=== PATIENT | female | born 1955 | race Caucasian/White ===

== ENCOUNTER 2018-06-19 13:10 | Inpatient (IN) | payer OTHER ==
--- NOTE | 2018-06-19 12:45 | CT ---
EXAMINATION TYPE: CT abdomen pelvis w con DATE OF EXAM: 06/19/2018 COMPARISON: None HISTORY: Right lower quadrant pain on and off x [address] DLP: 1286.2 mGycm CONTRAST: CT scan of the abdomen and pelvis is performed with Oral Contrast and with IV Contrast, patient injec joseph with 100 mL of Isovue M300. FINDINGS: LUNG BASES-: No visible nodule. No infiltrate. LIVER/GB: No calcified gallstones. No space occupying hepatic lesion. Biliary tree is of normal ca liber. PANCREAS: No inflammation. No distinct mass. SPLEEN: No splenic enlargement. No lesion seen. ADRENALS: No nodule. No thickening. KIDNEYS/BLADDER: No hydronephrosis. No nephrolithiasis. No distinct renal mass. Urinary bladder g rossly unremarkable. BOWEL: Extensive wall thickening and surrounding inflammatory change involving the cecum. There is ad jacent inflammatory change of the iliopsoas musculature with the suspected developing intramuscular a bscess of 2.8 cm. Adherent tubular structure may reflect inflamed appendix. No evidence for free air. The findings may reflect acute diverticulitis or diverticulitis however neoplasm is not excluded. St rict clinical correlation advised. GENITAL ORGANS: No gross abnormality. LYMPH NODES: No greater than 1cm abdominal or pelvic lymph nodes are appreciated. AORTA: No significant abnormality. OSSEOUS STRUCTURES: No significant abnormality is seen. OTHER: No significant additional abnormality is seen. IVC filter is in place. IMPRESSION: 1. Extensive wall thickening and surrounding inflammatory change of the cecum and appendix may reflec t underlying neoplasm however acute appendicitis or acute diverticulitis in this region is difficult to exclude. There is inflammatory change of the adjacent iliopsoas with the intramuscular phlegmon or developing abscess. 2. Distal right ureteral calculus measuring 5 mm resulting in qsal-ot-heymormu right-sided hydrourete ronephrosis.
[2018-06-19] MEDS ORDERED: KETOROLAC 30 MG/ML 1 ML VIAL IVP STA (13:45)
[2018-06-19] MEDS ORDERED: SODIUM CHLORIDE 0.9% 2,000 ML IV STA (13:45)
[2018-06-19] MEDS ORDERED: MORPHINE SULFATE 4 MG/ML SYRINGE IV STA (13:45)
[2018-06-19] MEDS ORDERED: SODIUM CHLORIDE 0.9% 1,000 ML IV STA (13:45)
[2018-06-19] MEDS ORDERED: ACETAMINOPHEN TAB 500 MG TAB PO STA (13:56)
[2018-06-19] MEDS ORDERED: PIPERACILLIN-TAZOBACTAM 3.375 GM in SODIUM CHLORIDE 0.9% 100 ML IVPB STA (14:06)
--- NOTE | 2018-06-19 14:15 | ED ---
General Adult HPI <Dinesh Garsia - Last Filed: 06/19/18 15:07> - General Source: patient, RN notes reviewed, old records reviewed Mode of arrival: wheelchair Limitations: no limitations <Nae Okeefe - Last Filed: 06/19/18 15:19> - General Chief complaint: Recheck/Abnormal Lab/Rx Stated complaint: Abn CT Time Seen by Provider: 06/19/18 13:45 - History of Present Illness Initial comments: Patient is a 62-year-old female who presents emergency department today for evaluation due to significant right lower quadrant pain and abnormal CAT scan. Patient reports that she's been having intermittent right lower quadrant pain for the past month. Patient states that over the past 24 hours and having a high fever of 102 Patient felt that she be seen by her PCP. She had an outpatient CAT scan by Dr. King. Abnormal CAT scan findings concerning thickened cecum and appendix cannot exclude mass. Also a 5 mm distal right ureter stone causing hydronephrosis. Patient reports that she has a history of low hemoglobin. She scheduled to have a colonoscopy by Dr. Thompson in one week. Patient is not seen Dr. Thompson. Surgical history includes gastric bypass over 10 years ago. (Nae Okeefe) - Related Data Home Medications Medication Instructions Recorded Confirmed Ascorbic Acid [Vitamin C] 500 mg PO DAILY 06/19/18 06/19/18 Ferrous Sulfate Oral Elixir 312 mg PO DAILY 06/19/18 06/19/18 [Feosol Liquid] Levothyroxine Sodium [Synthroid] 175 mcg PO DAILY 06/19/18 06/19/18 Allergies Allergy/AdvReac Type Severity Reaction Status Date / Time No Known Allergies Allergy Verified 06/19/18 14:34 Review of Systems ROS Other: All systems not noted in ROS Statement are negative. <Dinesh Garsia - Last Filed: 06/19/18 15:07> ROS Other: All systems not noted in ROS Statement are negative. <Nae Okeefe - Last Filed: 06/19/18 15:19> ROS Statement: Those systems with pertinent positive or pertinent negative responses have been documented in the HPI. Past Medical History Additional Past Medical History / Comment(s): non-hodgkins lymphoma History of Any Multi-Drug Resistant Organisms: None Reported Past Surgical History: Bariatric Surgery Additional Past Surgical History / Comment(s): gastric bypass 2004, green field filter, port placement, bilateral breast biopsies Past Psychological History: No Psychological Hx Reported Smoking Status: Current every day smoker Past Alcohol Use History: None Reported Past Drug Use History: None Reported <Nae Okeefe - Last Filed: 06/19/18 15:19> General Exam Limitations: no limitations General appearance: alert, in no apparent distress Head exam: Present: atraumatic, normocephalic, normal inspection Eye exam: Present: normal appearance, PERRL, EOMI. Absent: scleral icterus, conjunctival injection, periorbital swelling ENT exam: Present: normal exam, mucous membranes moist Neck exam: Present: normal inspection. Absent: tenderness, meningismus, lymphadenopathy Respiratory exam: Present: normal lung sounds bilaterally. Absent: respiratory distress, wheezes, rales, rhonchi, stridor Cardiovascular Exam: Present: regular rate, normal rhythm, normal heart sounds. Absent: systolic murmur, diastolic murmur, rubs, gallop, clicks GI/Abdominal exam: Present: tenderness (Lower quadrant tenderness and guarding.), guarding, normal bowel sounds. Absent: distended, rebound, rigid <Nae Okeefe - Last Filed: 06/19/18 15:19> - General Exam Comments Initial Comments: 62-year-old female. Alert and oriented 3. No significant distress. (Nae Okeefe) Course <Dinesh Garsia - Last Filed: 06/19/18 15:07> <Nae Okeefe - Last Filed: 06/19/18 15:19> Vital Signs 06/19/18 13:16 Temperature 101.0 F H Pulse Rate 98 Respiratory 20 Rate Blood Pressure 94/53 O2 Sat by Pulse 99 Oximetry - Reevaluation(s) Reevaluation #1: 06/19/18 15:07 Patient reevaluated by myself, Dr. Garsia. Patient is moderate tenderness right lower abdomen. Patient states she has had intermittent abdominal discomfort over the past several weeks. Fever just started a couple of days ago. Outpatient hemoglobin was 7.3. Case was discussed with Dr. Thompson who states she is not around and recommends calling Dr. Calvert. Case was discussed with Dr. Calvert, who will admit and does agree with IV antibiotics. Case was also discussed with Dr. Dolan, who will consult. Patient does meet sepsis criteria diagnosed at 1500. Blood culture and lactic acid and IV antibiotic's involvement ordered. (Dinesh Garsia) 06/19/18 14:15 Patient is sepsis criteria with fever 101 blood pressure of 90/53. Initiate on 2 L bolus and Zosyn. (Nae Okeefe) Medical Decision Making - Lab Data Result diagrams: 06/19/18 14:15 06/19/18 14:15 <Dinesh Garsia - Last Filed: 06/19/18 15:07> - Lab Data Result diagrams: 06/19/18 14:15 06/19/18 14:15 - Radiology Data Radiology results: report reviewed <Nae Okeefe - Last Filed: 06/19/18 15:19> - Medical Decision Making 62-year-old female presents emergency department today with progressive right lower quadrant abdominal pain. Much more severe with fevers over the past 48 hours. Patient was seen by her PCP and had an outpatient CAT scan completed. She is also being treated for significant anemia. Patient's lab work shows white blood cell count 9.6. Hemoglobin of 6.0. Sodium 133. Potassium 4.5. Bicarb 20. Alk phos 164. Albumin 3.4. Amylase is 135. Lipase is 599. Urinalysis is negative for blood or infection. Patient computed tomography scan shows evidence of inflammatory changes over the cecum involving the appendix. Difficult to exclude underlying neoplasm or diverticulitis. There is also some phlegmonous changes in the iliopsoas muscle. Patient also has a distal 5 mm right ureteral stone. Discussed the pain is likely related to both of these processes at this time. Patient was initiated on 2 L bolus. She does meet sepsis criteria. Patient was initiated on Zosyn. Patient was also started on a 2 unit blood transfusion due to low hemoglobin of 6.0. Most likely related to possibly of underlying neoplasm in the right lower quadrant. Patient's case discussed with Dr. Garsia was discussed case with Dr. Lacy. Patient will be admitted at this time. (Nae Okeefe) - Lab Data Lab Results 06/19/18 06/19/18 06/19/18 Range/Units 14:15 14:15 14:15 WBC 9.6 (3.8-10.6) k/uL RBC 3.59 L (3.80-5.40) m/uL Hgb 6.0 L* (11.4-16.0) gm/dL Hct 22.3 L (34.0-46.0) % MCV 62.0 L (80.0-100.0) fL MCH 16.7 L (25.0-35.0) pg MCHC 27.0 L (31.0-37.0) g/dL RDW 18.6 H (11.5-15.5) % Plt Count 507 H (150-450) k/uL Sodium 133 L (137-145) mmol/L Potassium 4.5 (3.5-5.1) mmol/L Chloride 100 (98-107) mmol/L Carbon Dioxide 20 L (22-30) mmol/L Anion Gap 13 mmol/L BUN 17 (7-17) mg/dL Creatinine 0.71 (0.52-1.04) mg/dL Est GFR (CKD-EPI)AfAm >90 (>60 ml/min/1.73 sqM) Est GFR (CKD-EPI)NonAf >90 (>60 ml/min/1.73 sqM) Glucose 85 (74-99) mg/dL Plasma Lactic Acid Jimmy 1.1 (0.7-2.0) mmol/L Calcium 9.2 (8.4-10.2) mg/dL Total Bilirubin 0.4 (0.2-1.3) mg/dL AST 16 (14-36) U/L ALT 19 (9-52) U/L Alkaline Phosphatase 164 H (38-126) U/L Total Protein 6.4 (6.3-8.2) g/dL Albumin 3.4 L (3.5-5.0) g/dL Amylase 135 H (30-110) U/L Lipase 599 H (23-300) U/L Urine Color Urine Appearance (Clear) Urine pH (5.0-8.0) Ur Specific [place] (1.001-1.035) Urine Protein (Negative) Urine Glucose (UA) (Negative) Urine Ketones (Negative) Urine Blood (Negative) Urine Nitrite (Negative) Urine Bilirubin (Negative) Urine Urobilinogen (<2.0) mg/dL Ur Leukocyte Esterase (Negative) 06/19/18 Range/Units 14:15 WBC (3.8-10.6) k/uL RBC (3.80-5.40) m/uL Hgb (11.4-16.0) gm/dL Hct (34.0-46.0) % MCV (80.0-100.0) fL MCH (25.0-35.0) pg MCHC (31.0-37.0) g/dL RDW (11.5-15.5) % Plt Count (150-450) k/uL Sodium (137-145) mmol/L Potassium (3.5-5.1) mmol/L Chloride (98-107) mmol/L Carbon Dioxide (22-30) mmol/L Anion Gap mmol/L BUN (7-17) mg/dL Creatinine (0.52-1.04) mg/dL Est GFR (CKD-EPI)AfAm (>60 ml/min/1.73 sqM) Est GFR (CKD-EPI)NonAf (>60 ml/min/1.73 sqM) Glucose (74-99) mg/dL Plasma Lactic Acid Jimmy (0.7-2.0) mmol/L Calcium (8.4-10.2) mg/dL Total Bilirubin (0.2-1.3) mg/dL AST (14-36) U/L ALT (9-52) U/L Alkaline Phosphatase (38-126) U/L Total Protein (6.3-8.2) g/dL Albumin (3.5-5.0) g/dL Amylase (30-110) U/L Lipase (23-300) U/L Urine Color Light Yellow Urine Appearance Clear (Clear) Urine pH 5.5 (5.0-8.0) Ur Specific [place] 1.037 H (1.001-1.035) Urine Protein Negative (Negative) Urine Glucose (UA) Negative (Negative) Urine Ketones Negative (Negative) Urine Blood Negative (Negative) Urine Nitrite Negative (Negative) Urine Bilirubin Negative (Negative) Urine Urobilinogen <2.0 (<2.0) mg/dL Ur Leukocyte Esterase Negative (Negative) - Radiology Data CT shows extensive wall thickening and surrounding inflammatory change of the cecum and appendix which may reflect underlying neoplasm however acute appendicitis or diverticulitis in this region is difficult to exclude. Inflammatory changes adjacent to the iliopsoas with intramuscular phlegmon or developing abscess. There is also a distal right ureteral calculus measuring 5 mm resulting in mild to moderate right-sided hydroureteronephrosis. (Nae Phillips) Critical Care Time Critical Care Time: Yes Total Critical Care Time: 31 <Dinesh Garsia - Last Filed: 06/19/18 15:07> Disposition <Dinesh Garsia - Last Filed: 06/19/18 15:07> Is patient prescribed a controlled substance at d/c from ED?: No Time of Disposition: 15:18 <Nae Okeefe - Last Filed: 06/19/18 15:19> Clinical Impression: Sepsis, Anemia, Appendicitis with abscess, Right ureteral stone Disposition: ADMITTED IP TO THIS HOSP Condition: Stable Referrals: Patrick King DO [Primary Care Provider] - 1-2 days
[2018-06-19 14:53] LABS: Appearance,Urine Clear (Clear); Bilirubin,Urine Negative (Negative); Blood,Urine Negative (Negative); Color,Urine Light Yellow; Glucose,Urine (UA) Negative (Negative); Ketones,Urine Negative (Negative); Leukocyte Esterase,Urine Negative (Negative); Nitrite,Urine Negative (Negative); PH, Urine 5.5 (5.0-8.0); Protein,Urine Negative (Negative); Specific Gravity,Urine 1.037 (1.001-1.035); Urobilinogen,Urine <2.0 mg/dL (<2.0)
[2018-06-19 14:54] LABS: Anisocytosis Slight; Basophils # (A) 0.1 k/uL (0-0.2); Basophils % (A) 1 %; Eosinophils # (A) 0.1 k/uL (0-0.7); Eosinophils % (A) 1 %; HCT 22.3 % (34.0-46.0); Hypochromasia Marked; Lymphocytes # (A) 0.9 k/uL (1.0-4.8); Lymphocytes % (A) 10 %; MCH 16.7 pg (25.0-35.0); Mean Platelet Volume 6.7; Microcytosis Marked; Monocytes # (A) 0.6 k/uL (0-1.0); Monocytes % (A) 7 %; Neutrophils # (A) 7.8 k/uL (1.3-7.7); Neutrophils % (A) 81 %; Platelet Count 507 k/uL (150-450); RBC 3.59 m/uL (3.80-5.40); RDW 18.6 % (11.5-15.5); WBC 9.6 k/uL (3.8-10.6)
[2018-06-19 14:56] LABS: ALT 19 U/L (9-52); AST 16 U/L (14-36); Albumin 3.4 g/dL (3.5-5.0); Alkaline Phosphatase 164 U/L (38-126); Amylase 135 U/L (30-110); Anion Gap 13 mmol/L; Blood Urea Nitrogen 17 mg/dL (7-17); Calcium 9.2 mg/dL (8.4-10.2); Carbon Dioxide 20 mmol/L (22-30); Chloride 100 mmol/L (98-107); Glucose 85 mg/dL (74-99); Lipase 599 U/L (23-300); Potassium 4.5 mmol/L (3.5-5.1); Sodium 133 mmol/L (137-145); Total Bilirubin 0.4 mg/dL (0.2-1.3); Total Protein 6.4 g/dL (6.3-8.2)
[2018-06-19] MEDS ORDERED: NALOXONE 0.4 MG/ML 1 ML VIAL IV PRN (15:19)
[2018-06-19] MEDS ORDERED: HYDROmorphone 0.5 MG/0.5 ML SYRINGE IVP PRN (15:19)
[2018-06-19 15:30] LABS: Polychromasia Present
[2018-06-19 15:31] LABS: Large Platelets Present; Ovalocytes Present; Poikilocytosis (M) Present
[2018-06-19] MEDS: SODIUM CHLORIDE 0.9% 1,000 ML IV SCH (15:45)
[2018-06-19] MEDS: metroNIDAZOLE-NS PMX 500 MG in SALINE 1 100ML.BAG IVPB SCH (23:34)
[2018-06-19] MEDS: PIPERACILLIN-TAZOBACTAM 3.375 GM in SODIUM CHLORIDE 0.9% 100 ML IVPB SCH (23:34)
[2018-06-19] MEDS: NICOTINE 7MG/24HR PATCH TRANSDERM SCH ×2 (23:34→23:43)
[2018-06-20] MEDS: MORPHINE SULFATE 4 MG/ML SYRINGE IV PRN ×2 (03:24→10:41)
[2018-06-20] MEDS: SODIUM CHLORIDE 0.9% 1,000 ML IV SCH ×3 (03:27→22:30)
[2018-06-20] MEDS: metroNIDAZOLE-NS PMX 500 MG in SALINE 1 100ML.BAG IVPB SCH ×4 (04:51→23:24)
[2018-06-20] MEDS: LEVOTHYROXINE 88 MCG TAB PO SCH (05:54)
--- NOTE | 2018-06-20 07:57 | CONS ---
CONSULTATION DATE OF CONSULTATION: 06/19/2018 REASON FOR CONSULTATION: Medical management requested by Dr. Calvert. CONSULTATION: This is a pleasant 62-year-old patient of Dr. King who had a gastric bypass in 2004 and had non-Hodgkin's lymphoma treated with chemotherapy 11 years ago. Patient for 3 weeks has been having right lower quadrant abdominal pain off and on with some chills, denies any cough. No urinary symptoms. Has been feeling tired, run down, achy, nausea, vomiting. Patient presented in the ER. CT scan of the abdomen and pelvis was done. Patient is found to have extensive wall thickening and surrounding inflammatory change involving the cecum. Does suggest inflammatory change of the iliopsoas musculature with suspected developing intramuscular abscess of 2.8 cm. Tubal structure may reflect inflamed appendix. There was no free air noted. Diverticulitis/neoplasm could not be ruled out. Also, distal right ureter calculus 5 mm resulting in mild-to- moderate right-sided hydroureteronephrosis. Patient is started on IV fluids, admitted for the same. REVIEW OF SYSTEMS: CONSTITUTIONAL: Tired. HEENT: None. RESPIRATORY: None. GASTROINTESTINAL: As above. GENITOURINARY: None. MUSCULOSKELETAL: None. DERMATOLOGICAL: None. HEMATOLOGICAL: None. LYMPHATIC: None. PSYCHIATRY: None. NEUROLOGICAL: None. PAST MEDICAL HISTORY: Non-Hodgkin's lymphoma. PAST SURGICAL HISTORY: Gastric bypass in 2004, Darcy filter, port placement, bilateral breast biopsy, kidney stones. SOCIAL HISTORY: The patient smokes less than half pack a day. Lives with her daughter. 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 FAMILY HISTORY: Reviewed, noncontributory to presentation. HOME MEDICATIONS: Synthroid 135 mcg a day, iron 312 mg p.o. daily, Vitamin C 500 mg p.o. daily. ALLERGIES: None. PHYSICAL EXAMINATION: Temperature 98, pulse 75, respiration 20, blood pressure 100/65, pulse ox 92% on room air. GENERAL APPEARANCE: Average build, lying in bed, awake. EYES: Pupils equal, conjunctivae are normal. HEENT: External appearance of nose and ears normal, oral cavity normal. NECK: JVD not raised, mass not palpable. RESPIRATORY: Effort normal. LUNGS: Clear. CARDIOVASCULAR: First and second sounds are normal. No edema. Right lower quadrant tenderness. No obvious guarding, rigidity. Liver and spleen not palpable. LYMPHATIC: No lymph node palpable. PSYCHIATRY: Alert and oriented x3. Mood and affect normal. NEUROLOGICAL: Pupils equal. Cranial nerves grossly intact. Power and sensation grossly intact. INVESTIGATIONS: White count 9.6, hemoglobin 6, MCV 62, platelets 507, potassium 4.5. Amylase 135, lipase 599. CT scan of the abdomen and pelvis as above. ASSESSMENT: 1. This is a patient who presents with 3 weeks of some low-grade fever and chills, right lower quadrant pain. Patient did not get any worse. CT scan is suggestive of inflammatory mass, diverticulitis could not be ruled out. There was no free air or air bubbles noted. Given history of non-Hodgkin's lymphoma, that needs to be kept in differential, given there are no ranging symptoms of fever, chills, or white count. 2. Right ureter stone with right-sided hydronephrosis. 3. Hypothyroidism. 4. Microcytic anemia, need to rule out chronic underlying malignancy. PLAN: Patient is already on IV fluids. We will add Lovenox for DVT prophylaxis. Will add IV Zosyn and Flagyl. Will also get a Hematology consultation to keep in mind that non- Hodgkin's lymphoma needs to be ruled out. Thank you, Dr. Calvert, will follow with you. Patient is otherwise medically stable to proceed for an exploratory laparotomy that is done tomorrow. Care was discussed with the patient. MMODL / IJN: [id number] /
[2018-06-20] MEDS: PIPERACILLIN-TAZOBACTAM 3.375 GM in SODIUM CHLORIDE 0.9% 100 ML IVPB SCH ×2 (08:36→18:34)
[2018-06-20] MEDS: PANTOPRAZOLE 40 MG/10 ML VIAL IV SCH (08:36)
[2018-06-20] MEDS: NICOTINE 7MG/24HR PATCH TRANSDERM SCH (08:37)
[2018-06-20 08:39] LABS: Anisocytosis Moderate; Basophils # (A) 0.1 k/uL (0-0.2); Basophils % (A) 1 %; Eosinophils # (A) 0.1 k/uL (0-0.7); Eosinophils % (A) 1 %; HGB 7.2 gm/dL (11.4-16.0); Hypochromasia Marked; Lymphocytes # (A) 0.9 k/uL (1.0-4.8); Lymphocytes % (A) 11 %; MCH 18.7 pg (25.0-35.0); MCHC 27.8 g/dL (31.0-37.0); Mean Platelet Volume 6.8; Microcytosis Marked; Monocytes # (A) 0.6 k/uL (0-1.0); Monocytes % (A) 8 %; Neutrophils # (A) 5.8 k/uL (1.3-7.7); Neutrophils % (A) 77 %; Platelet Count 423 k/uL (150-450); Poikilocytosis Moderate; RBC 3.85 m/uL (3.80-5.40); RDW 22.6 % (11.5-15.5); WBC 7.6 k/uL (3.8-10.6)
[2018-06-20 08:41] LABS: MCV 67.5 fL (80.0-100.0)
--- NOTE | 2018-06-20 08:43 | P.GSHP ---
<Kary Yip A - Last Filed: 06/20/18 08:39> History of Present Illness H&P Date: 06/20/18 Chief Complaint: abdominal pain CHIEF COMPLAINT: Abdominal pain HISTORY OF PRESENT ILLNESS: 62-year-old female who presented to emergency room with a chief complaint of abdominal pain. Patient states she has been having intermittent right lower quadrant abdominal pain for the past 3-4 weeks. She states that she thought she had the flu initially as she was having body aches and a fever. She states about a week ago when these symptoms came on again, she laid in bed for a day or two and it resolved. She reports on Monday her symptoms returned and she had a fever of 102F. She denies diarrhea or constipation. Reports weight loss of 5 pounds over the last month. Denies nausea or vomiting. Denies hematemesis, hematochezia, or melena. Hemoglobin 6.0 on admission. Received 2 units RBC transfusion. Repeat hemoglobin pending. PAST MEDICAL HISTORY: See list. PAST SURGICAL HISTORY: See list. SOCIAL HISTORY: No illicit drug use. REVIEW OF SYSTEMS: CONSTITUTIONAL: Denies fever or chills. HEENT: Denies blurred vision, vision changes, or eye pain. Denies hemoptysis CARDIOVASCULAR: Denies chest pain or pressure. RESPIRATORY: No shortness of breath. GASTROINTESTINAL: Refer to HPI for pertinent findings HEMATOLOGIC: Denies bleeding disorders. GENITOURINARY: Denies any blood in urine. SKIN: Denies pruitis. Denies rash. PHYSICAL EXAM: VITAL SIGNS: Reviewed. GENERAL: Well-developed in no acute distress. HEENT: No sclera icterus. Extraocular movements grossly intact. Moist buccal mucosa. Head is atraumatic, normocephalic. ABDOMEN: Soft. Nondistended. Positive bowel sounds. Tenderness upon palpation of right lower quadrant. NEUROLOGIC: Alert and oriented. Cranial nerves II through XII grossly intact. IMAGING: CT abdomen and pelvis: Extensive wall thickening and surrounding inflammatory changes of the cecum and appendix may reflect underlying neoplasm however acute diverticulitis or acute appendicitis in this region is difficult to exclude. There is inflammatory changes of the adjacent iliopsoas with intramuscular phlegnmon or developing abscess. ASSESSMENT: 1. Abdominal pain 1 month, CT scan reveals extensive wall thickening and surrounding telemetry changes of the cecum and appendix. Possible acute diverticulitis. Possible acute appendicitis. Cannot rule out underlying neoplasm. PLAN: 1. NPO 2. Await repeat hemoglobin. Transfuse for hemoglobin less than 7. 3. Patient scheduled for right colectomy today with Dr. Calvert Nurse practitioner note has been reviewed by physician. Signing provider agrees with the documented findings, assessment, and plan of care. Past Medical History Additional Past Medical History / Comment(s): non-hodgkins lymphoma History of Any Multi-Drug Resistant Organisms: None Reported Past Surgical History: Bariatric Surgery Additional Past Surgical History / Comment(s): gastric bypass 2004, green field filter, port placement, bilateral breast biopsies, kidney stones Past Psychological History: No Psychological Hx Reported Smoking Status: Current every day smoker Past Alcohol Use History: None Reported Past Drug Use History: None Reported Medications and Allergies Home Medications Medication Instructions Recorded Confirmed Type Ascorbic Acid [Vitamin C] 500 mg PO DAILY 06/19/18 06/19/18 History Ferrous Sulfate Oral Elixir 312 mg PO DAILY 06/19/18 06/19/18 History [Feosol Liquid] Levothyroxine Sodium [Synthroid] 175 mcg PO DAILY 06/19/18 06/19/18 History Allergies Allergy/AdvReac Type Severity Reaction Status Date / Time No Known Allergies Allergy Verified 06/19/18 14:34 Surgical - Exam Vital Signs Temp Pulse Resp BP Pulse Ox 101.0 F H 98 20 94/53 99 06/19/18 13:16 06/19/18 13:16 06/19/18 13:16 06/19/18 13:16 06/19/18 13:16 Results - Labs 06/19/18 14:15 06/19/18 14:15 Abnormal Lab Results - Last 24 Hours (Table) 06/19/18 06/19/18 06/19/18 Range/Units 14:13 14:15 14:15 RBC 3.59 L (3.80-5.40) m/uL Hgb 6.0 L* (11.4-16.0) gm/dL Hct 22.3 L (34.0-46.0) % MCV 62.0 L (80.0-100.0) fL MCH 16.7 L (25.0-35.0) pg MCHC 27.0 L (31.0-37.0) g/dL RDW 18.6 H (11.5-15.5) % Plt Count 507 H (150-450) k/uL Neutrophils # 7.8 H (1.3-7.7) k/uL Lymphocytes # 0.9 L (1.0-4.8) k/uL Sodium 133 L (137-145) mmol/L Carbon Dioxide 20 L (22-30) mmol/L Alkaline Phosphatase 164 H (38-126) U/L Albumin 3.4 L (3.5-5.0) g/dL Amylase 135 H (30-110) U/L Lipase 599 H (23-300) U/L Ur Specific [place] (1.001-1.035) Crossmatch See Detail 06/19/18 Range/Units 14:15 RBC (3.80-5.40) m/uL Hgb (11.4-16.0) gm/dL Hct (34.0-46.0) % MCV (80.0-100.0) fL MCH (25.0-35.0) pg MCHC (31.0-37.0) g/dL RDW (11.5-15.5) % Plt Count (150-450) k/uL Neutrophils # (1.3-7.7) k/uL Lymphocytes # (1.0-4.8) k/uL Sodium (137-145) mmol/L Carbon Dioxide (22-30) mmol/L Alkaline Phosphatase (38-126) U/L Albumin (3.5-5.0) g/dL Amylase (30-110) U/L Lipase (23-300) U/L Ur Specific [place] 1.037 H (1.001-1.035) Crossmatch Diabetes panel 06/19/18 Range/Units 14:15 Sodium 133 L (137-145) mmol/L Potassium 4.5 (3.5-5.1) mmol/L Chloride 100 (98-107) mmol/L Carbon Dioxide 20 L (22-30) mmol/L BUN 17 (7-17) mg/dL Creatinine 0.71 (0.52-1.04) mg/dL Glucose 85 (74-99) mg/dL Calcium 9.2 (8.4-10.2) mg/dL AST 16 (14-36) U/L ALT 19 (9-52) U/L Alkaline Phosphatase 164 H (38-126) U/L Total Protein 6.4 (6.3-8.2) g/dL Albumin 3.4 L (3.5-5.0) g/dL Calcium panel 06/19/18 Range/Units 14:15 Calcium 9.2 (8.4-10.2) mg/dL Albumin 3.4 L (3.5-5.0) g/dL Pituitary panel 06/19/18 Range/Units 14:15 Sodium 133 L (137-145) mmol/L Potassium 4.5 (3.5-5.1) mmol/L Chloride 100 (98-107) mmol/L Carbon Dioxide 20 L (22-30) mmol/L BUN 17 (7-17) mg/dL Creatinine 0.71 (0.52-1.04) mg/dL Glucose 85 (74-99) mg/dL Calcium 9.2 (8.4-10.2) mg/dL Adrenal panel 06/19/18 Range/Units 14:15 Sodium 133 L (137-145) mmol/L Potassium 4.5 (3.5-5.1) mmol/L Chloride 100 (98-107) mmol/L Carbon Dioxide 20 L (22-30) mmol/L BUN 17 (7-17) mg/dL Creatinine 0.71 (0.52-1.04) mg/dL Glucose 85 (74-99) mg/dL Calcium 9.2 (8.4-10.2) mg/dL Total Bilirubin 0.4 (0.2-1.3) mg/dL AST 16 (14-36) U/L ALT 19 (9-52) U/L Alkaline Phosphatase 164 H (38-126) U/L Total Protein 6.4 (6.3-8.2) g/dL Albumin 3.4 L (3.5-5.0) g/dL <Rolando Calvert - Last Filed: 06/20/18 13:34> Surgical - Exam Vital Signs Temp Pulse Resp BP Pulse Ox 101.0 F H 98 20 94/53 99 06/19/18 13:16 06/19/18 13:16 06/19/18 13:16 06/19/18 13:16 06/19/18 13:16 Results - Labs 06/20/18 07:25 06/19/18 14:15 Abnormal Lab Results - Last 24 Hours (Table) 06/19/18 06/19/18 06/19/18 Range/Units 14:13 14:15 14:15 RBC 3.59 L (3.80-5.40) m/uL Hgb 6.0 L* (11.4-16.0) gm/dL Hct 22.3 L (34.0-46.0) % MCV 62.0 L (80.0-100.0) fL MCH 16.7 L (25.0-35.0) pg MCHC 27.0 L (31.0-37.0) g/dL RDW 18.6 H (11.5-15.5) % Plt Count 507 H (150-450) k/uL Neutrophils # 7.8 H (1.3-7.7) k/uL Lymphocytes # 0.9 L (1.0-4.8) k/uL Sodium 133 L (137-145) mmol/L Carbon Dioxide 20 L (22-30) mmol/L Alkaline Phosphatase 164 H (38-126) U/L Albumin 3.4 L (3.5-5.0) g/dL Amylase 135 H (30-110) U/L Lipase 599 H (23-300) U/L Ur Specific [place] (1.001-1.035) Crossmatch See Detail 06/19/18 06/20/18 Range/Units 14:15 07:25 RBC (3.80-5.40) m/uL Hgb 7.2 L (11.4-16.0) gm/dL Hct 26.0 L (34.0-46.0) % MCV 67.5 L D (80.0-100.0) fL MCH 18.7 L (25.0-35.0) pg MCHC 27.8 L (31.0-37.0) g/dL RDW 22.6 H (11.5-15.5) % Plt Count (150-450) k/uL Neutrophils # (1.3-7.7) k/uL Lymphocytes # 0.9 L (1.0-4.8) k/uL Sodium (137-145) mmol/L Carbon Dioxide (22-30) mmol/L Alkaline Phosphatase (38-126) U/L Albumin (3.5-5.0) g/dL Amylase (30-110) U/L Lipase (23-300) U/L Ur Specific [place] 1.037 H (1.001-1.035) Crossmatch Diabetes panel 06/19/18 Range/Units 14:15 Sodium 133 L (137-145) mmol/L Potassium 4.5 (3.5-5.1) mmol/L Chloride 100 (98-107) mmol/L Carbon Dioxide 20 L (22-30) mmol/L BUN 17 (7-17) mg/dL Creatinine 0.71 (0.52-1.04) mg/dL Glucose 85 (74-99) mg/dL Calcium 9.2 (8.4-10.2) mg/dL AST 16 (14-36) U/L ALT 19 (9-52) U/L Alkaline Phosphatase 164 H (38-126) U/L Total Protein 6.4 (6.3-8.2) g/dL Albumin 3.4 L (3.5-5.0) g/dL Calcium panel 06/19/18 Range/Units 14:15 Calcium 9.2 (8.4-10.2) mg/dL Albumin 3.4 L (3.5-5.0) g/dL Pituitary panel 06/19/18 Range/Units 14:15 Sodium 133 L (137-145) mmol/L Potassium 4.5 (3.5-5.1) mmol/L Chloride 100 (98-107) mmol/L Carbon Dioxide 20 L (22-30) mmol/L BUN 17 (7-17) mg/dL Creatinine 0.71 (0.52-1.04) mg/dL Glucose 85 (74-99) mg/dL Calcium 9.2 (8.4-10.2) mg/dL Adrenal panel 06/19/18 Range/Units 14:15 Sodium 133 L (137-145) mmol/L Potassium 4.5 (3.5-5.1) mmol/L Chloride 100 (98-107) mmol/L Carbon Dioxide 20 L (22-30) mmol/L BUN 17 (7-17) mg/dL Creatinine 0.71 (0.52-1.04) mg/dL Glucose 85 (74-99) mg/dL Calcium 9.2 (8.4-10.2) mg/dL Total Bilirubin 0.4 (0.2-1.3) mg/dL AST 16 (14-36) U/L ALT 19 (9-52) U/L Alkaline Phosphatase 164 H (38-126) U/L Total Protein 6.4 (6.3-8.2) g/dL Albumin 3.4 L (3.5-5.0) g/dL
[2018-06-20] MEDS ORDERED: ENOXAPARIN 40 MG/0.4 ML SYRINGE SQ SCH (09:00)
[2018-06-20] MEDS: ASCORBIC ACID 500 MG TAB PO SCH (13:25)
[2018-06-20] MEDS: FERROUS SULFATE ORAL ELIXIR 300 MG/5 ML CUP PO SCH (13:27)
--- NOTE | 2018-06-20 14:15 | P.CONS ---
History of Present Illness - Reason for Consult Consult date: 06/20/18 History of NHL, anemia, RLQ mass Requesting physician: Brian Dolan - Chief Complaint fever, chills malize - History of Present Illness Ms. Acosta is a very pleasant female pt seen in the past by Dr. Emmanuel for NHL, diagnosed and treated with chemotherapy alone 10 years ago, she has not followed in the last 5 years as she is considered cured. Pt is currently admitted for 3 weeks intermittent fever, chills, RLQ pain, wrapping around from the back to front and down the leg, associated with malaise, poor appetite, denies difficulty swallowing, recent illness, ADAL, changes in bowel ford bladder habits. She does have a known right kidney stone, CT AP is showing cecal thickening, possible abscess. Pt has microcytic, hypochromic anemia, she states this is not unusual for her, she had gastric bypass, Hgb is usually around 10, she has had IV iron in the past, her PCP manages. Review of Systems 14 point ROS is negative except as stated in HPI Past Medical History Past Medical History: Cancer Additional Past Medical History / Comment(s): non-hodgkins lymphoma History of Any Multi-Drug Resistant Organisms: None Reported Past Surgical History: Bariatric Surgery Additional Past Surgical History / Comment(s): gastric bypass 2004, green field filter, port placement, bilateral breast biopsies, kidney stones Past Psychological History: No Psychological Hx Reported Smoking Status: Current every day smoker Past Alcohol Use History: None Reported Past Drug Use History: None Reported - Past Family History Sister(s) Family Medical History: Cancer (NHL) Father Family Medical History: Cancer Brother(s) Family Medical History: Cancer (liver) Medications and Allergies Home Medications Medication Instructions Recorded Confirmed Type Ascorbic Acid [Vitamin C] 500 mg PO DAILY 06/19/18 06/19/18 History Ferrous Sulfate Oral Elixir 312 mg PO DAILY 06/19/18 06/19/18 History [Feosol Liquid] Levothyroxine Sodium [Synthroid] 175 mcg PO DAILY 06/19/18 06/19/18 History Allergies Allergy/AdvReac Type Severity Reaction Status Date / Time No Known Allergies Allergy Verified 06/20/18 14:27 Physical Exam Vitals: Vital Signs Temp Pulse Pulse Resp BP BP BP 06/20/18 13:25 98.6 F 62 14 101/58 06/20/18 12:22 98.8 F 68 16 89/53 06/20/18 11:55 99.3 F 62 12 104/63 06/20/18 11:52 99.3 F 62 12 104/63 06/20/18 11:42 99 F 67 12 100/63 06/20/18 05:13 99.7 F H 71 16 93/54 06/19/18 22:11 98.8 F 75 20 100/65 06/19/18 21:54 98.8 F 56 L 20 100/57 06/19/18 19:40 98.7 F 66 20 96/60 06/19/18 19:30 98.3 F 79 18 115/67 06/19/18 19:27 98.6 F 69 18 105/55 06/19/18 17:30 98.8 F 78 16 95/58 06/19/18 17:00 98.8 F 80 14 97/59 06/19/18 16:50 98.8 F 79 14 93/57 06/19/18 16:10 98.6 F 76 16 108/68 06/19/18 15:45 98.4 F 06/19/18 15:27 81 18 95/43 Pulse Ox 06/20/18 13:25 96 06/20/18 12:22 06/20/18 11:55 06/20/18 11:52 06/20/18 11:42 06/20/18 05:13 94 L 06/19/18 22:11 06/19/18 21:54 92 L 06/19/18 19:40 98 06/19/18 19:30 100 06/19/18 19:27 99 06/19/18 17:30 98 06/19/18 17:00 96 06/19/18 16:50 98 06/19/18 16:10 99 06/19/18 15:45 06/19/18 15:27 97 Intake and Output 06/19/18 06/20/18 06/20/18 22:59 06:59 14:59 Intake Total 620 0 Balance 620 0 Intake: Blood Product 620 0 Rc As-1 Unit 310 [id number] Rc As-1 Unit 310 [id number] Rc Cpda-1 Unit 0 [id number] Other: # Voids 3 4 # Bowel Movements 2 - Constitutional General appearance: average body habitus, cooperative, no acute distress - EENT Eyes: anicteric sclerae, EOMI ENT: hearing grossly normal, normal oropharynx - Neck Neck: no lymphadenopathy - Respiratory Respiratory: bilateral: CTA - Cardiovascular Rhythm: regular Heart sounds: normal: S1, S2 Abnormal Heart Sounds: no systolic murmur, no diastolic murmur, no rub, no S3 Gallop, no S4 Gallop, no click, no other leg Peripheral Edema: bilateral: None - Gastrointestinal right abd is warm to touch, mild tenderness to palpation, no distension General gastrointestinal: no absent bowel sounds, no decreased bowel sounds, no distended, no hepatomegaly, no hyperactive bowel sounds, normal bowel sounds, no organomegaly, no rigid, no scaphoid, soft, no splenomegaly, tenderness, no umbilical hernia, no ventral hernia - Integumentary Integumentary: normal turgor, pale - Neurologic Neurologic: CNII-XII intact - Musculoskeletal Musculoskeletal: strength equal bilaterally - Psychiatric Psychiatric: A&O x's 3, appropriate affect, intact judgment & insight Results CBC & Chem 7: 06/20/18 07:25 06/19/18 14:15 Labs: Abnormal Lab Results - Last 24 Hours (Table) 06/19/18 06/19/18 06/19/18 Range/Units 14:13 14:15 14:15 RBC 3.59 L (3.80-5.40) m/uL Hgb 6.0 L* (11.4-16.0) gm/dL Hct 22.3 L (34.0-46.0) % MCV 62.0 L (80.0-100.0) fL MCH 16.7 L (25.0-35.0) pg MCHC 27.0 L (31.0-37.0) g/dL RDW 18.6 H (11.5-15.5) % Plt Count 507 H (150-450) k/uL Neutrophils # 7.8 H (1.3-7.7) k/uL Lymphocytes # 0.9 L (1.0-4.8) k/uL Sodium 133 L (137-145) mmol/L Carbon Dioxide 20 L (22-30) mmol/L Alkaline Phosphatase 164 H (38-126) U/L Albumin 3.4 L (3.5-5.0) g/dL Amylase 135 H (30-110) U/L Lipase 599 H (23-300) U/L Ur Specific [place] (1.001-1.035) Crossmatch See Detail 06/19/18 06/20/18 Range/Units 14:15 07:25 RBC (3.80-5.40) m/uL Hgb 7.2 L (11.4-16.0) gm/dL Hct 26.0 L (34.0-46.0) % MCV 67.5 L D (80.0-100.0) fL MCH 18.7 L (25.0-35.0) pg MCHC 27.8 L (31.0-37.0) g/dL RDW 22.6 H (11.5-15.5) % Plt Count (150-450) k/uL Neutrophils # (1.3-7.7) k/uL Lymphocytes # 0.9 L (1.0-4.8) k/uL Sodium (137-145) mmol/L Carbon Dioxide (22-30) mmol/L Alkaline Phosphatase (38-126) U/L Albumin (3.5-5.0) g/dL Amylase (30-110) U/L Lipase (23-300) U/L Ur Specific [place] 1.037 H (1.001-1.035) Crossmatch CT scan - abdomen: report reviewed CT scan - pelvis: report reviewed Assessment and Plan (1) Appendicitis with abscess Narrative/Plan: Defer to Surgery for mgmt of the same. Pending pathology Current Visit: Yes Status: Acute Priority: High Code(s): K35.33 - ACUTE APPENDICITIS WITH PERF AND LOC PERITONITIS, WITH ABSCS SNOMED Code(s): 02215371 (2) NHL (non-Hodgkin's lymphoma) Narrative/Plan: CT AP did not reveal any pathological adenopathy. Pt states she was last followed up about 5 years ago and has not been seen by er Hem/Onc since. Will await pathology from Surgery to confirm no involvement in the suspicious area with lymphoma. May consider CT chest to complete imaging No lymphadenopathy of organomegaly on exam Current Visit: Yes Status: Acute Code(s): C85.90 - NON-HODGKIN LYMPHOMA, UN SPECIFIED, UNSPECIFIED SITE SNOMED Code(s): 419480966 (3) Microcytic hypochromic anemia Narrative/Plan: Pt has history of gastric bypass, she states Hgb typically around 10. Acute change likely r/t acute condition and quite possibly some GI blood loss. Anemia work up ordered. Current Visit: Yes Status: Chronic Priority: Medium Code(s): D50.9 - IRON DEFICIENCY ANEMIA, UNSPECIFIED SNOMED Code(s): 06994737
[2018-06-20] MEDS ORDERED: IV FLUID CONTINUATION 350 ML IV ONE (14:19)
[2018-06-20] MEDS: ONDANSETRON 4 MG/2 ML VIAL IVP ONE ×2 (14:41→16:55)
[2018-06-20] MEDS ORDERED: fentaNYL (PF) 50 MCG/ML 2 ML AMP IV ONE (14:45)
[2018-06-20] MEDS ORDERED: MIDAZOLAM 2 MG/2 ML VIAL IV ONE (14:45)
[2018-06-20] MEDS ORDERED: LACTATED RINGERS 1,000 ML IV ONE (15:00)
[2018-06-20] MEDS ORDERED: MIDAZOLAM 2 MG/2 ML VIAL ONE (15:12)
[2018-06-20] MEDS ORDERED: fentaNYL (PF) 50 MCG/ML 2 ML AMP ONE (15:12)
[2018-06-20] MEDS ORDERED: HYDROmorphone (PF) 1 MG/ML ONE (15:12)
[2018-06-20] MEDS ORDERED: ROCURONIUM BROMIDE 10 MG/ML 10 ML VIAL IV ONE (15:12)
[2018-06-20] MEDS ORDERED: LIDOCAINE 1% INJ 10MG/ML (20 ML MDV) ONE (15:12)
[2018-06-20] MEDS ORDERED: PROPOFOL 10 MG/ML 20 ML VIAL IV ONE (15:12)
[2018-06-20] MEDS ORDERED: KETOROLAC 30 MG/ML 1 ML VIAL ONE (15:12)
[2018-06-20] MEDS ORDERED: GLYCOPYRROLATE 0.2 MG/ML 2 ML VIAL ONE (15:12)
[2018-06-20] MEDS ORDERED: NEOSTIGMINE 1 MG/ML 10 ML VIAL ONE (15:12)
[2018-06-20] MEDS ORDERED: NALOXONE 0.4 MG/ML 1 ML VIAL IV PRN (16:01)
[2018-06-20] MEDS ORDERED: ROPIVACAINE 300 MG, fentaNYL (PF) 1,250 MCG in SODIUM CHLORIDE 0.9% 165 ML EPIDURAL PRN (16:01)
[2018-06-20] MEDS ORDERED: fentaNYL (PF) 50 MCG/ML 2 ML AMP IVP ONE (16:40)
[2018-06-20] MEDS ORDERED: HYDROmorphone 1 MG/ML 1 ML SYRINGE IVP PRN (17:08)
[2018-06-20] MEDS ORDERED: METOCLOPRAMIDE 5 MG/ML 2 ML VIAL IVP PRN (17:08)
--- NOTE | 2018-06-20 17:08 | P.OP ---
Date of Procedure: 06/20/18 Preoperative Diagnosis: Ruptured appendicitis Postoperative Diagnosis: Right colon mass related to appendicitis pathology pending Retroperitoneal abscess Procedure(s) Performed: Exploratory laparotomy Right colectomy Partial omentectomy Drainage of retroperitoneal abscess Anesthesia: JEWELL Surgeon: Rolando Calvert Estimated Blood Loss (ml): 50 Pathology: other (Right colon, omentum) Condition: stable Disposition: PACU Description of Procedure: The patient's placed the operative table in supine position. She received general anesthesia. Her abdomen was prepped and draped usual sterile fashion. The skin was incised through midline incision. The Bookwalter tract with wound. The abdomen explored. There was an inflammatory mass in the right colon. The mass was very hard. At this point using gentle finger dissection the mass was rotated medially. The white line of T[place]t was divided with a left cautery. The fact flexure was taken down using the Enseal device. The proximal transverse colon was transected using the GI stapler. And then the terminal ileum was transected with the GI stapler. The mesentery the bowel was divided using the Enseal device. A [id number] functional end-to-end staple anastomosis was then created using the DARNELL and TA staplers. 3-0 GI silk sutures is a crotch stitch. A portion of the omentum was dissected with the Enseal device and sent to pathology. The right lower quadrant was examined. There appeared to be evidence of an abscess had a trading into the retroperitoneum. Using blunt finger dissection the abscess cavity is entered. And then the area was flushed. A GERTRUDE drains placed through separate stab incisions and placed into the right lower quadrant. The abdomen was irrigated with 2 L of normal saline. The fascia was closed with looped #1 PDS suture. Skin was closed cisco. Patient top she will was sent to recovery in stable condition.
[2018-06-20 18:20] LABS: Anisocytosis Moderate; Basophils # (A) 0.1 k/uL (0-0.2); Basophils % (A) 1 %; Eosinophils # (A) 0.1 k/uL (0-0.7); Eosinophils % (A) 0 %; HCT 35.1 % (34.0-46.0); HGB 9.3 gm/dL (11.4-16.0); Hypochromasia Marked; Lymphocytes # (A) 0.5 k/uL (1.0-4.8); Lymphocytes % (A) 4 %; MCH 20.1 pg (25.0-35.0); MCHC 26.4 g/dL (31.0-37.0); MCV 75.9 fL (80.0-100.0); Mean Platelet Volume 6.5; Microcytosis Marked; Monocytes # (A) 0.4 k/uL (0-1.0); Monocytes % (A) 4 %; Neutrophils # (A) 10.6 k/uL (1.3-7.7); Neutrophils % (A) 90 %; Platelet Count 480 k/uL (150-450); Poikilocytosis Moderate; RBC 4.62 m/uL (3.80-5.40); RDW 23.3 % (11.5-15.5); WBC 11.7 k/uL (3.8-10.6)
[2018-06-20 18:31] LABS: Anion Gap 13 mmol/L; Blood Urea Nitrogen 11 mg/dL (7-17); Calcium 8.7 mg/dL (8.4-10.2); Carbon Dioxide 17 mmol/L (22-30); Chloride 110 mmol/L (98-107); Glucose 89 mg/dL (74-99); Potassium 4.1 mmol/L (3.5-5.1); Sodium 140 mmol/L (137-145)
--- NOTE | 2018-06-20 21:32 | PN ---
PROGRESS NOTE DATE OF SERVICE: June 20, 2018. PRESENTING COMPLAINT: Abdominal pain. INTERVAL HISTORY: This patient presented with right lower quadrant pain, found to have inflammatory mass. I saw this patient this morning. Still having some pain on IV antibiotics. Due to go down for surgery this afternoon. Lying in bed. No nausea or vomiting. REVIEW OF SYSTEMS: Done for constitutional, cardiovascular, GI, pulmonary; relevant findings as above. CURRENT MEDICATIONS: Reviewed and include IV Zosyn and IV Flagyl. PHYSICAL EXAMINATION: VITAL SIGNS: Temperature 99, pulse 67, respiration 12, blood pressure 100/63, pulse ox 94 percent on room air. GENERAL APPEARANCE: Lying in bed, awake. EYES: Pupils equal. Conjunctivae normal. NECK: JVD not raised. Respiratory effort normal. LUNGS: Clear. CARDIOVASCULAR: 1st and 2nd sounds normal. No edema. ABDOMEN: Right lower quadrant tenderness. No guarding or rigidity. PSYCHIATRY: Alert and oriented x3. Mood and affect normal. INVESTIGATIONS: White count 11.7, hemoglobin 9.3, potassium 4.1. ASSESSMENT: 1. Right lower quadrant inflammatory mass pending surgery this afternoon. 1. Right ureteral stone with right-sided hydronephrosis and hydroureter. 2. Hypothyroidism. 3. Microcytic anemia need to rule out underlying malignancy or could be from chronic infection. PLAN: Continue current medication and treatment plan. Patient awaiting surgery this afternoon. Also hematology and neurology consultation was done. Care was discussed with the patient. FADIA / ROBERTO: [id number] /
[2018-06-20] MEDS: D5-0.45% NACL WITH KCL 20MEQ/L 1,000 ML IV SCH (23:24)
[2018-06-21] MEDS: HEPARIN SODIUM,PORCINE 5,000 UNIT/ML 1 ML VIAL SQ SCH ×3 (00:21→18:32)
[2018-06-21] MEDS: PIPERACILLIN-TAZOBACTAM 3.375 GM in SODIUM CHLORIDE 0.9% 100 ML IVPB SCH ×4 (00:23→22:22)
[2018-06-21] MEDS: D5-0.45% NACL WITH KCL 20MEQ/L 1,000 ML IV SCH ×3 (00:24→21:22)
[2018-06-21] MEDS: KETOROLAC 30 MG/ML 1 ML VIAL IVP PRN ×3 (00:29→15:08)
[2018-06-21] MEDS: ONDANSETRON 4 MG/2 ML VIAL IVP PRN ×2 (00:30→07:09)
[2018-06-21] MEDS: LEVOTHYROXINE 88 MCG TAB PO SCH (05:07)
[2018-06-21] MEDS: metroNIDAZOLE-NS PMX 500 MG in SALINE 1 100ML.BAG IVPB SCH ×2 (05:08→12:41)
--- NOTE | 2018-06-21 07:06 | P.PN ---
Progress Note - Text Progress Note Date: 06/21/18 Anesthesia epidural pain rounds Postop day 1 exploratory laparoscopy right colectomy Patient evaluated at the bedside, denies any major complaints Pain well-controlled to VAS 4 out of 10, Received breakthrough medications once Vitals within normal limits, Nothing by mouth status patient receiving IV fluids Epidural Site looks clean dry and intact, catheter positioned at 12, with solution running at 8 miles an hour Plan: We'll continue pain management with current settings and solution of ro pivacaine and fentanyl running at 8, We'll discuss further management with primary team thank you
[2018-06-21] MEDS: PANTOPRAZOLE 40 MG/10 ML VIAL IV SCH (08:08)
[2018-06-21] MEDS: SODIUM CHLORIDE 0.9% 1,000 ML IV SCH ×2 (08:09→18:32)
[2018-06-21] MEDS ORDERED: NALOXONE 0.4 MG/ML 1 ML VIAL IV PRN (08:26)
[2018-06-21 09:58] LABS: Anisocytosis Moderate; Basophils % (A) 0 %; Eosinophils # (A) 0.1 k/uL (0-0.7); Eosinophils % (A) 1 %; HGB 8.4 gm/dL (11.4-16.0); Hypochromasia Marked; Lymphocytes # (A) 0.5 k/uL (1.0-4.8); Lymphocytes % (A) 5 %; MCH 19.9 pg (25.0-35.0); MCHC 26.9 g/dL (31.0-37.0); MCV 73.9 fL (80.0-100.0); Mean Platelet Volume 7.2; Microcytosis Marked; Monocytes # (A) 0.4 k/uL (0-1.0); Monocytes % (A) 5 %; Neutrophils # (A) 7.7 k/uL (1.3-7.7); Neutrophils % (A) 88 %; Platelet Count 514 k/uL (150-450); Poikilocytosis Marked; RDW 22.7 % (11.5-15.5); WBC 8.7 k/uL (3.8-10.6)
[2018-06-21 10:03] LABS: ALT 20 U/L (9-52); AST 13 U/L (14-36); Albumin 2.5 g/dL (3.5-5.0); Alkaline Phosphatase 103 U/L (38-126); Anion Gap 10 mmol/L; Blood Urea Nitrogen 11 mg/dL (7-17); Calcium 8.3 mg/dL (8.4-10.2); Carbon Dioxide 21 mmol/L (22-30); Chloride 109 mmol/L (98-107); Glucose 102 mg/dL (74-99); Potassium 4.1 mmol/L (3.5-5.1); Sodium 140 mmol/L (137-145); Total Bilirubin 0.4 mg/dL (0.2-1.3); Total Protein 5.1 g/dL (6.3-8.2)
[2018-06-21] MEDS: ALVIMOPAN 12 MG CAPSULE PO SCH ×2 (10:12→21:22)
[2018-06-21] MEDS: ROPIVACAINE 250 MG, HYDROMORPHONE (PF) 5 MG in SODIUM CHLORIDE 0.9% 200 ML EPIDURAL PRN (10:53)
[2018-06-21] MEDS: NICOTINE 7MG/24HR PATCH TRANSDERM SCH (11:11)
--- NOTE | 2018-06-21 12:32 | P.PN ---
Subjective Progress Note Date: 06/21/18 CHIEF COMPLAINT: Abdominal pain HISTORY OF PRESENT ILLNESS: Patient is status post exploratory laparotomy, right colectomy, partial pneumonectomy, and drainage of retroperitoneal abscess. POD #1. Patient was having a lot of pain this morning. She was evaluated by anesthesia. Epidural medication was changed. Pain has since improved. She denies passing flatus. Denies BM. Denies nausea or vomiting. GERTRUDE drain intact. WBC 8.7. Hemoglobin 8.4. Infectious disease has been consulted for further evaluation. PHYSICAL EXAM: VITAL SIGNS: Reviewed. GENERAL: Well-developed in no acute distress. HEENT: No sclera icterus. Extraocular movements grossly intact. Moist buccal mucosa. Head is atraumatic, normocephalic. ABDOMEN: Soft. Nondistended. Absent bowel sounds. Tenderness noted. NEUROLOGIC: Alert and oriented. Cranial nerves II through XII grossly intact. ASSESSMENT: 1. Abdominal pain 1 month, CT scan reveals extensive wall thickening and surrounding telemetry changes of the cecum and appendix. Possible acute diverticulitis. Possible acute appendicitis. Cannot rule out underlying neoplasm. 2. status post exploratory laparotomy, right colectomy, partial pneumonectomy, and drainage of retroperitoneal abscess 3. Acute blood loss anemia, secondary to above PLAN: 1. NPO until bowel function returns. May have ice chips. 2. Pain control. Continue epidural and soliman. DC POD #3 3. Activity as tolerated. Patient encouraged to be OOB and in the chair today 4. Incentive spirometry 5. Monitor WBC. Infectious disease on consult Nurse practitioner note has been reviewed by physician. Signing provider agrees with the documented findings, assessment, and plan of care. Objective - Vital Signs Vital signs: Vital Signs Temp 98.2 F 06/21/18 05:30 Pulse 58 L 06/21/18 05:30 Resp 18 06/21/18 05:30 BP 108/56 06/21/18 05:30 Pulse Ox 95 06/21/18 05:30 Intake & Output 06/20/18 06/21/18 06/21/18 18:59 06:59 18:59 Intake Total 1960 0 310 Output Total 220 430 Balance 1740 -430 310 Intake: IV 950 Intake, IV Titration 700 Amount Piperacillin-Tazobactam 3 100 .375 gm In Sodium Chloride 0.9% 100 ml @ 25 mls/hr IVPB Q8H [facility] Rx#: [id number] Sodium Chloride 0.9% 1, 500 000 ml @ 100 mls/hr IV . Q10H [facility] Rx#:[id number] metroNIDAZOLE-NS PMX 500 100 mg In Saline 1 100ml.bag @ 100 mls/hr IVPB Q6H [facility] Rx#:[id number] Oral 0 Blood Product 310 310 Rc Cpda-1 Unit 0 310 [id number] Output: Drainage 30 Right Upper Abdomen 30 Urine 200 400 Estimated Blood Loss 20 Other: Voiding Method Incontinent Incontinent Indwelling Catheter - Labs CBC & Chem 7: 06/21/18 08:54 06/21/18 08:54 Labs: Abnormal Lab Results - Last 24 Hours (Table) 06/19/18 06/20/18 06/20/18 Range/Units 14:13 17:56 17:56 WBC 11.7 H (3.8-10.6) k/uL Hgb 9.3 L D (11.4-16.0) gm/dL Hct (34.0-46.0) % MCV 75.9 L D (80.0-100.0) fL MCH 20.1 L (25.0-35.0) pg MCHC 26.4 L (31.0-37.0) g/dL RDW 23.3 H (11.5-15.5) % Plt Count 480 H (150-450) k/uL Neutrophils # 10.6 H (1.3-7.7) k/uL Lymphocytes # 0.5 L (1.0-4.8) k/uL Chloride 110 H (98-107) mmol/L Carbon Dioxide 17 L (22-30) mmol/L Glucose (74-99) mg/dL Calcium (8.4-10.2) mg/dL AST (14-36) U/L Total Protein (6.3-8.2) g/dL Albumin (3.5-5.0) g/dL Crossmatch See Detail 06/21/18 06/21/18 Range/Units 08:54 08:54 WBC (3.8-10.6) k/uL Hgb 8.4 L (11.4-16.0) gm/dL Hct 31.0 L (34.0-46.0) % MCV 73.9 L (80.0-100.0) fL MCH 19.9 L (25.0-35.0) pg MCHC 26.9 L (31.0-37.0) g/dL RDW 22.7 H (11.5-15.5) % Plt Count 514 H (150-450) k/uL Neutrophils # (1.3-7.7) k/uL Lymphocytes # 0.5 L (1.0-4.8) k/uL Chloride 109 H (98-107) mmol/L Carbon Dioxide 21 L (22-30) mmol/L Glucose 102 H (74-99) mg/dL Calcium 8.3 L (8.4-10.2) mg/dL AST 13 L (14-36) U/L Total Protein 5.1 L (6.3-8.2) g/dL Albumin 2.5 L (3.5-5.0) g/dL Crossmatch Microbiology - Last 24 Hours (Table) 06/19/18 14:15 Blood Culture - Preliminary Blood No Growth after 24 hours
[2018-06-21] MEDS: ASCORBIC ACID 500 MG TAB PO SCH (13:32)
[2018-06-21] MEDS: FERROUS SULFATE ORAL ELIXIR 300 MG/5 ML CUP PO SCH (13:32)
--- NOTE | 2018-06-21 15:41 | P.GSCN ---
History of Present Illness Consult date: 06/21/18 Reason for Consult: Right ureteral calculus History of present illness: The patient is a 62-year-old female admitted on 06/19 her evaluation of right- sided abdominal pain and a temperature of 101. She says she's had pain in the right lower quadrant for approximately one month. At home she had been noted to have a temperature as high as 102. She was seen by Dr. King as an outpatient and a CT scan of the abdomen and pelvis was obtained which showed evidence of inflammation and possible abscess or mass in the region of the cecum and appen nicole. The CT scan also showed a 5 mm partially obstructing calculus in the mid right ureter. Yesterday the patient underwent exploratory laparotomy with appendectomy and right colectomy. She has some right-sided abdominal pain and continues to have some intermittent pain in the right flank as well. The patient does have a history of urolithiasis and spontaneously passed a stone 10 years ago. Her sister has also had kidney stones. She has no history of gross hematuria or urinary tract infection. She has noted no recent change in her normal voiding pattern. Review of Systems - Constitutional Reports chills, Reports fever - Cardiovascular Denies edema, Denies shortness of breath - Respiratory Denies cough, Denies wheezing - Gastrointestinal Reports as per HPI - Genitourinary Genitourinary: Reports as per HPI, Reports flank pain (right), Denies dysuria, Denies hematuria Past Medical History Past Medical History: Cancer Additional Past Medical History / Comment(s): non-hodgkins lymphoma History of Any Multi-Drug Resistant Organisms: None Reported Past Surgical History: Bariatric Surgery Additional Past Surgical History / Comment(s): gastric bypass 2004, green field filter, port placement, bilateral breast biopsies Past Psychological History: No Psychological Hx Reported Smoking Status: Current every day smoker Past Alcohol Use History: None Reported Past Drug Use History: None Reported - Past Family History Sister(s) Family Medical History: Cancer (NHL) Father Family Medical History: Cancer Brother(s) Family Medical History: Cancer (liver) Medications and Allergies Home Medications Medication Instructions Recorded Confirmed Type Ascorbic Acid [Vitamin C] 500 mg PO DAILY 06/19/18 06/19/18 History Ferrous Sulfate Oral Elixir 312 mg PO DAILY 06/19/18 06/19/18 History [Feosol Liquid] Levothyroxine Sodium [Synthroid] 175 mcg PO DAILY 06/19/18 06/19/18 History Allergies Allergy/AdvReac Type Severity Reaction Status Date / Time No Known Allergies Allergy Verified 06/20/18 14:27 Surgical - Exam Vital Signs Temp Pulse Resp BP Pulse Ox 101.0 F H 98 20 94/53 99 06/19/18 13:16 06/19/18 13:16 06/19/18 13:16 06/19/18 13:16 06/19/18 13:16 - General well developed - ENT no hearing loss - Neck no masses, no lymphadectomy - Respiratory normal respiratory effort - Abdomen Abdomen: soft, tender (right abdomen and right flank), no organomegaly Results - Labs 06/21/18 08:54 06/21/18 08:54 Abnormal Lab Results - Last 24 Hours (Table) 06/19/18 06/20/18 06/20/18 Range/Units 14:13 17:56 17:56 WBC 11.7 H (3.8-10.6) k/uL Hgb 9.3 L D (11.4-16.0) gm/dL Hct (34.0-46.0) % MCV 75.9 L D (80.0-100.0) fL MCH 20.1 L (25.0-35.0) pg MCHC 26.4 L (31.0-37.0) g/dL RDW 23.3 H (11.5-15.5) % Plt Count 480 H (150-450) k/uL Neutrophils # 10.6 H (1.3-7.7) k/uL Lymphocytes # 0.5 L (1.0-4.8) k/uL Chloride 110 H (98-107) mmol/L Carbon Dioxide 17 L (22-30) mmol/L Glucose (74-99) mg/dL Calcium (8.4-10.2) mg/dL AST (14-36) U/L Total Protein (6.3-8.2) g/dL Albumin (3.5-5.0) g/dL Crossmatch See Detail 06/21/18 06/21/18 Range/Units 08:54 08:54 WBC (3.8-10.6) k/uL Hgb 8.4 L (11.4-16.0) gm/dL Hct 31.0 L (34.0-46.0) % MCV 73.9 L (80.0-100.0) fL MCH 19.9 L (25.0-35.0) pg MCHC 26.9 L (31.0-37.0) g/dL RDW 22.7 H (11.5-15.5) % Plt Count 514 H (150-450) k/uL Neutrophils # (1.3-7.7) k/uL Lymphocytes # 0.5 L (1.0-4.8) k/uL Chloride 109 H (98-107) mmol/L Carbon Dioxide 21 L (22-30) mmol/L Glucose 102 H (74-99) mg/dL Calcium 8.3 L (8.4-10.2) mg/dL AST 13 L (14-36) U/L Total Protein 5.1 L (6.3-8.2) g/dL Albumin 2.5 L (3.5-5.0) g/dL Crossmatch Microbiology - Last 24 Hours (Table) 06/19/18 14:15 Blood Culture - Preliminary Blood No Growth after 24 hours Diabetes panel 06/20/18 06/21/18 Range/Units 17:56 08:54 Sodium 140 140 (137-145) mmol/L Potassium 4.1 4.1 (3.5-5.1) mmol/L Chloride 110 H 109 H (98-107) mmol/L Carbon Dioxide 17 L 21 L (22-30) mmol/L BUN 11 11 (7-17) mg/dL Creatinine 0.73 0.64 (0.52-1.04) mg/dL Glucose 89 102 H (74-99) mg/dL Calcium 8.7 8.3 L (8.4-10.2) mg/dL AST 13 L (14-36) U/L ALT 20 (9-52) U/L Alkaline Phosphatase 103 (38-126) U/L Total Protein 5.1 L (6.3-8.2) g/dL Albumin 2.5 L (3.5-5.0) g/dL Calcium panel 06/20/18 06/21/18 Range/Units 17:56 08:54 Calcium 8.7 8.3 L (8.4-10.2) mg/dL Albumin 2.5 L (3.5-5.0) g/dL Pituitary panel 06/20/18 06/21/18 Range/Units 17:56 08:54 Sodium 140 140 (137-145) mmol/L Potassium 4.1 4.1 (3.5-5.1) mmol/L Chloride 110 H 109 H (98-107) mmol/L Carbon Dioxide 17 L 21 L (22-30) mmol/L BUN 11 11 (7-17) mg/dL Creatinine 0.73 0.64 (0.52-1.04) mg/dL Glucose 89 102 H (74-99) mg/dL Calcium 8.7 8.3 L (8.4-10.2) mg/dL Adrenal panel 06/20/18 06/21/18 Range/Units 17:56 08:54 Sodium 140 140 (137-145) mmol/L Potassium 4.1 4.1 (3.5-5.1) mmol/L Chloride 110 H 109 H (98-107) mmol/L Carbon Dioxide 17 L 21 L (22-30) mmol/L BUN 11 11 (7-17) mg/dL Creatinine 0.73 0.64 (0.52-1.04) mg/dL Glucose 89 102 H (74-99) mg/dL Calcium 8.7 8.3 L (8.4-10.2) mg/dL Total Bilirubin 0.4 (0.2-1.3) mg/dL AST 13 L (14-36) U/L ALT 20 (9-52) U/L Alkaline Phosphatase 103 (38-126) U/L Total Protein 5.1 L (6.3-8.2) g/dL Albumin 2.5 L (3.5-5.0) g/dL - Imaging CT scan - abdomen: image reviewed Assessment and Plan (1) Right ureteral stone Narrative/Plan: The patient has a partially obstructive 5 mm mid right ureteral calculus. It is unclear how much of her right flank pain is related to the calculus and how much was from the mass in the region of the cecum and appendix. She will be in the hospital for at least another 3 or 4 days and I would suggest a KUB be obtained just prior to discharge. If the calculus is visible and is migrating further observation would be reasonable. In the meantime, the patient's urine should be strained as the stone is relatively small and she might not feel it pass from the bladder if it migrates to her bladder. Current Visit: Yes Status: Acute Code(s): N20.1 - CALCULUS OF URETER SNOMED Code(s): 56501063
[2018-06-21 17:32] LABS: Iron Saturation 2.28 (12.00-45.00)
[2018-06-21] MEDS: metroNIDAZOLE 500 MG TAB PO SCH (18:32)
--- NOTE | 2018-06-21 18:37 | PN ---
PROGRESS NOTE DATE OF SERVICE: 06/21/2018 This 62-year-old woman who was admitted with abdominal pain and a mass underwent surgery. Dr. Calvert performed drainage of the retroperitoneal abscess, partial omentectomy and right colectomy. Biopsies and final culture reports are pending at this time. The patient is on broad- spectrum IV antibiotics. Multiple consultants are following the patient closely. Past medical history reviewed. REVIEW OF SYSTEMS: CARDIOVASCULAR: No angina. RESPIRATION: As mentioned earlier. GI: As mentioned earlier. : No dysuria or retention. NERVOUS SYSTEM: No numbness, weakness. CURRENT MEDICATIONS: Reviewed. They include: 1. Entereg 12 mg p.o. b.i.d. 2. Vitamin C 500 mg b.i.d. 3. Iron sulfate 300 mg p.o. b.i.d. 4. Heparin 5000 units subcutaneously q.8. 5. Dilaudid 0.5 q.3 p.r.n. 6. Dilaudid 1 mg IV q.3 p.r.n. 7. Toradol 30 mg IV q.6 p.r.n. 8. Synthroid 176 mcg p.o. daily. 9. Reglan 10 mg IV q.6 p.r.n. 10.Flagyl 500 mg q.6 p.r.n. 11.Morphine sulfate 4 mg IV q.4 p.r.n. 12.Narcan 0.2 q.2 p.r.n. 13.Habitrol 7 daily. 14.Zofran 4 mg q.8 p.r.n. 15.Protonix 80 mg IV daily. 16.Zosyn 3.375 q.8. 17.Ropivacaine. PHYSICAL EXAMINATION: Patient is alert, oriented x2. Pulse 79, blood pressure 135/70, respiration 18, temperature 98.2, pulse ox 93% on room air. HEENT: Conjunctivae normal. Oral mucosa moist. NECK: No jugular venous distention. No carotid bruit. No lymph node enlargement. CARDIOVASCULAR SYSTEM: S1, S2 muffled. No S3. No S4. RESPIRATORY SYSTEM: Breath sounds diminished at the bases. A few scattered rhonchi. ABDOMEN: Soft. Status post surgery. LEGS: No edema. No swelling. NERVOUS SYSTEM: Higher functions as mentioned earlier. Moves all 4 limbs. No focal motor or sensory deficit. LYMPHATICS: No lymph node palpable in neck, axillae or groin. SKIN: No ulcer, rash, bleeding. JOINTS: No active deforming arthropathy. LABS: WBC 8.7, hemoglobin 8.4, sodium 140, potassium 4.1, and albumin is 2.5. ASSESSMENT: 1. Right lower quadrant inflammatory mass, possible retroperitoneal abscess, status post exploratory laparotomy, right colectomy and partial omentectomy and drainage of the retroperitoneal abscess. 2. Severe postoperative pain. 3. Elevated amylase and lipase. 4. Anemia, multifactorial, microcytic, possibly chronic gastrointestinal bleed. 5. Right ureteral stone with right-sided hydronephrosis and hydroureter. 6. Hypothyroidism. 7. History of non-Hodgkin lymphoma. 8. History of bariatric surgery. Gastric bypass. 9. History of bilateral breast biopsies. 10.History of nicotine dependence. RECOMMENDATIONS AND DISCUSSION: In this 62-year-old woman who presented with multiple complex medical issues, we will monitor the patient closely, continue the current management, continue with symptomatic treatment. Otherwise at this time we will continue to follow with Anesthesia and Surgery for pain control. DVT prophylaxis. Symptomatic treatment of pain. Proton pump inhibitors. The overall prognosis is guarded because of multiple complex medical issues. We await further culture report as well as biopsy report. Patient is empirically on Zosyn and Flagyl. Will continue to monitor. Further recommendations to follow. See orders for further details. MMODL / IJN: [id number] /
[2018-06-22] MEDS: HEPARIN SODIUM,PORCINE 5,000 UNIT/ML 1 ML VIAL SQ SCH ×4 (00:32→23:15)
[2018-06-22] MEDS: metroNIDAZOLE 500 MG TAB PO SCH ×5 (00:32→23:15)
[2018-06-22] MEDS: SODIUM CHLORIDE 0.9% 1,000 ML IV SCH ×3 (00:37→23:15)
[2018-06-22] MEDS: LEVOTHYROXINE 88 MCG TAB PO SCH (05:48)
[2018-06-22] MEDS: D5-0.45% NACL WITH KCL 20MEQ/L 1,000 ML IV SCH ×3 (05:52→14:22)
--- NOTE | 2018-06-22 07:06 | P.PN ---
Progress Note - Text Progress Note Date: 06/22/18 Postoperative day # 2 status post exp laparotomy and right colectomy ,epidural catheter placed for postoperative analgesia, yesterday afternoon patient complained of pain and patient was on continuous infusion of fentanyl/Ropivacaine epidurally, and the infusion was switched to ropivacaine/Dilaudid patient currently on combination of epidural infusion solution of Ropivacaine 0.0625% and Dilaudid 20 g per mL the infusion rate at 8 ml per hour , she reports that since we made this change in the epidural solution her pain improved significantly , patient had no motor deficit epidural site okay , vital signs stable ,VAS 0-2 /10 , Assessment and plan= post operative day # 2 patient doing well ,pain well controlled , there is no anesthesia related complications, continue the current management
[2018-06-22] MEDS: PANTOPRAZOLE 40 MG/10 ML VIAL IV SCH (07:47)
[2018-06-22] MEDS: PIPERACILLIN-TAZOBACTAM 3.375 GM in SODIUM CHLORIDE 0.9% 100 ML IVPB SCH ×3 (07:47→23:15)
[2018-06-22] MEDS: ONDANSETRON 4 MG/2 ML VIAL IVP PRN (08:24)
--- NOTE | 2018-06-22 08:27 | P.PN ---
Subjective Progress Note Date: 06/22/18 CHIEF COMPLAINT: Abdominal pain HISTORY OF PRESENT ILLNESS: Patient is status post exploratory laparotomy, right colectomy, partial pneumonectomy, and drainage of retroperitoneal abscess. POD #2. Patient reports her pain is tolerable this morning. Passing flatus. Denies BM. Reports some nausea this morning, which she attributes to eating too fast this morning. No emesis. Refusing Zofran. Patient pulling 1000cc on her IS. Encouraged use 10 times an hour. Labs from this morning are pending. PHYSICAL EXAM: VITAL SIGNS: Reviewed. GENERAL: Well-developed in no acute distress. HEENT: No sclera icterus. Extraocular movements grossly intact. Moist buccal mucosa. Head is atraumatic, normocephalic. ABDOMEN: Soft. Nondistended. Positive bowel sounds. Tenderness noted. GERTRUDE with serosanguineous drainage. PREVENA system intact to midline incision. NEUROLOGIC: Alert and oriented. Cranial nerves II through XII grossly intact. ASSESSMENT: 1. Abdominal pain 1 month, CT scan reveals extensive wall thickening and surrounding telemetry changes of the cecum and appendix. Possible acute diverticulitis. Possible acute appendicitis. Cannot rule out underlying neoplasm. 2. status post exploratory laparotomy, right colectomy, partial pneumonectomy, and drainage of retroperitoneal abscess 3. Acute blood loss anemia, secondary to above PLAN: 1. Continue clear liquids at this time. Patient does not want her diet advanced. 2. Pain control. Continue epidural and soliman. DC POD #3 3. Activity as tolerated. Patient encouraged to be OOB and in the chair today. Ambulation in the hallway encouraged. 4. Incentive spirometry. 5. Monitor WBC. Infectious disease on consult 6. Await repeat lab results from this morning Nurse practitioner note has been reviewed by physician. Signing provider agrees with the documented findings, assessment, and plan of care. Objective - Vital Signs Vital signs: Vital Signs Temp 98.6 F 06/22/18 05:20 Pulse 77 06/22/18 05:20 Resp 18 06/22/18 05:20 BP 119/70 06/22/18 05:20 Pulse Ox 92 L 06/22/18 05:20 Intake & Output 06/21/18 06/22/18 06/22/18 18:59 06:59 18:59 Intake Total 310 0 Output Total 550 260 30 Balance -240 -260 -30 Intake: Oral 0 Blood Product 310 Rc Cpda-1 Unit 310 [id number] Output: Gastric Drainage 50 Drainage 10 30 Right Upper Abdomen 10 30 Urine 500 250 Other: Voiding Method Indwelling Catheter Indwelling Catheter Indwelling Catheter # Bowel Movements 1 - Labs CBC & Chem 7: 06/21/18 08:54 06/21/18 08:54 Labs: Abnormal Lab Results - Last 24 Hours (Table) 06/19/18 06/21/18 06/21/18 Range/Units 14:13 08:54 08:54 Hgb 8.4 L (11.4-16.0) gm/dL Hct 31.0 L (34.0-46.0) % MCV 73.9 L (80.0-100.0) fL MCH 19.9 L (25.0-35.0) pg MCHC 26.9 L (31.0-37.0) g/dL RDW 22.7 H (11.5-15.5) % Plt Count 514 H (150-450) k/uL Lymphocytes # 0.5 L (1.0-4.8) k/uL Chloride (98-107) mmol/L Carbon Dioxide (22-30) mmol/L Glucose (74-99) mg/dL Calcium (8.4-10.2) mg/dL Iron 6 L (50-170) ug/dL Iron Saturation 2.28 L (12.00-45.00) AST (14-36) U/L Total Protein (6.3-8.2) g/dL Albumin (3.5-5.0) g/dL Vitamin B12 1909.0 H (200.0-944.0) pg/mL Crossmatch See Detail 06/21/18 Range/Units 08:54 Hgb (11.4-16.0) gm/dL Hct (34.0-46.0) % MCV (80.0-100.0) fL MCH (25.0-35.0) pg MCHC (31.0-37.0) g/dL RDW (11.5-15.5) % Plt Count (150-450) k/uL Lymphocytes # (1.0-4.8) k/uL Chloride 109 H (98-107) mmol/L Carbon Dioxide 21 L (22-30) mmol/L Glucose 102 H (74-99) mg/dL Calcium 8.3 L (8.4-10.2) mg/dL Iron (50-170) ug/dL Iron Saturation (12.00-45.00) AST 13 L (14-36) U/L Total Protein 5.1 L (6.3-8.2) g/dL Albumin 2.5 L (3.5-5.0) g/dL Vitamin B12 (200.0-944.0) pg/mL Crossmatch Microbiology - Last 24 Hours (Table) 06/19/18 14:15 Blood Culture - Preliminary Blood No Growth after 48 hours
[2018-06-22 09:11] LABS: Anisocytosis Marked; Basophils # (A) 0.1 k/uL (0-0.2); Basophils % (A) 1 %; Eosinophils # (A) 0.1 k/uL (0-0.7); Eosinophils % (A) 2 %; HCT 28.6 % (34.0-46.0); HGB 7.9 gm/dL (11.4-16.0); Hypochromasia Marked; Lymphocytes # (A) 0.6 k/uL (1.0-4.8); Lymphocytes % (A) 9 %; MCH 19.3 pg (25.0-35.0); MCHC 27.7 g/dL (31.0-37.0); MCV 69.7 fL (80.0-100.0); Mean Platelet Volume 6.8; Microcytosis Marked; Monocytes # (A) 0.4 k/uL (0-1.0); Monocytes % (A) 5 %; Neutrophils # (A) 5.6 k/uL (1.3-7.7); Neutrophils % (A) 81 %; Platelet Count 468 k/uL (150-450); Poikilocytosis Moderate; RDW 24.3 % (11.5-15.5); WBC 6.8 k/uL (3.8-10.6)
[2018-06-22 09:29] LABS: ALT 24 U/L (9-52); AST 17 U/L (14-36); Albumin 2.4 g/dL (3.5-5.0); Alkaline Phosphatase 96 U/L (38-126); Anion Gap 9 mmol/L; Blood Urea Nitrogen 7 mg/dL (7-17); Carbon Dioxide 21 mmol/L (22-30); Chloride 106 mmol/L (98-107); Glucose 98 mg/dL (74-99); Sodium 136 mmol/L (137-145); Total Bilirubin 0.3 mg/dL (0.2-1.3)
--- NOTE | 2018-06-22 09:32 | CONS ---
CONSULTATION DATE OF SERVICE: 06/21/2018 REASON FOR CONSULTATION: Right lower quadrant mass and sepsis. HISTORY OF PRESENT ILLNESS: The patient is a 62-year-old female presenting to the ER at [facility] on the in the afternoon with chief complaints of abdominal pain and fever. The patient's abdominal pain has been going on for almost 3 weeks. The patient says she will have a pain mostly in the lower abdominal area at times sharp almost 5 to 6 out of 10. Pain would last for a day and then will go away. for the last 2 weeks. However, at this time the pain has been more persistent and she did have a fever of 102 degrees Fahrenheit. The patient has been evaluated by the primary care physician and the patient did have a CT of abdomen and pelvis completed which was reported to be extensive wall thickening and surrounding inflammatory change of the cecum and the appendix may reflect underlying neoplasm. However, acute appendicitis not entirely excluded. Distal right ureteral calculus measuring 5 mm. The patient on admission did have a fever of 101 degrees Fahrenheit. No significant tachycardia. White count initially normal. Repeat was was 11.7 yesterday. The patient was taken to the OR yesterday afternoon. The patient noticed to have a right colon mass secondary to appendicitis and retroperitoneal abscess. The patient is status post exploratory laparotomy with right colectomy and partial omentectomy, drainage of retroperitoneal abscess. No cultures. The patient has been started on Flagyl and Zosyn. Infectious Disease was consulted for further recommendation regarding antibiotic therapy. REVIEW OF SYSTEMS: CONSTITUTIONAL: Positive for weakness along with fever. EYES: No complaint. ENT: No complaint. RESPIRATORY: No complaint. CARDIOVASCULAR: No complaint. GENITOURINARY: No complaint. GASTROINTESTINAL: No complaint. INTEGUMENT: No complaint. PSYCHOLOGICAL: No complaint. ENDOCRINE: No complaint. NEUROLOGICAL: No complaint. PAST MEDICAL HISTORY: Non-Hodgkin lymphoma, kidney stones. PAST SURGICAL HISTORY: Gastric bypass 2005, Darcy filter placement, bilateral breast biopsy. SOCIAL HISTORY: Current every day smoker. Denies drinking or drug use. FAMILY HISTORY: No pertinent findings noticed. ALLERGIES: No known drug allergies. MEDICATION: Medications include the patient is currently on Zosyn 3.375 grams q.8 hours. She is on Protonix, Zofran, nicotine patch, Narcan, morphine sulfate, Flagyl, Reglan, Synthroid, Toradol, Dilaudid, heparin, iron sulfate, vitamin C. PHYSICAL EXAMINATION: On examination, blood pressure is 120/57 with a pulse of 89, temperature of 98. She is 96% on 2 L nasal cannula. General description is a middle-aged female up in the bed in no distress. No tachypnea or accessory muscle of respiration use. HEENT examination shows slight pallor. No scleral icterus. Oral mucous membrane is dry. No pharyngeal erythema or thrush. NECK: Trachea central. No thyromegaly. LUNGS: Unlabored breathing. Clear to auscultation anteriorly. No wheeze or crackle. HEART: S1, S2. Regular rate and rhythm. No added sounds. ABDOMEN: Soft, mildly tender. No guarding or rigidity. No organomegaly. EXTREMITIES: No edema of feet. SKIN EXAMINATION: No rash or mass palpable. NEUROLOGICALLY: Patient is awake, alert, oriented x3. Mood and affect normal. LABS: Hemoglobin is 8.4, white count 8.7, yesterday it was 11.7 with a BUN of 11, creatinine 0.64. Blood cultures have been negative so far. DIAGNOSTIC IMPRESSION AND PLAN: Patient admitted to the hospital with fever, abdominal pain in this patient who did have a right lower quadrant mass, status post laparotomy with right hemicolectomy and drainage of the abscess. Will need to cover for both aerobes and anaerobes in this patient who apparently has not been on antibiotic in the recent past could be sensitive pathogen. PLAN: 1. Zosyn 3.375 grams q.8 hours to continue. 2. On gentle IV fluid. 3. We will follow up on the clinical condition and culture to further adjust medication if needed. Thank you for this consultation. Will follow this patient along with you. MMODL / IJN: [id number] /
[2018-06-22] MEDS: ALVIMOPAN 12 MG CAPSULE PO SCH ×2 (09:48→20:45)
[2018-06-22] MEDS: ROPIVACAINE 250 MG, HYDROMORPHONE (PF) 5 MG in SODIUM CHLORIDE 0.9% 200 ML EPIDURAL PRN (09:53)
[2018-06-22] MEDS: NICOTINE 7MG/24HR PATCH TRANSDERM SCH (10:04)
[2018-06-22] MEDS: ASCORBIC ACID 500 MG TAB PO SCH (11:00)
[2018-06-22] MEDS: FERROUS SULFATE ORAL ELIXIR 300 MG/5 ML CUP PO SCH (11:02)
[2018-06-22 11:48] VITALS: BMI 28.5
--- NOTE | 2018-06-22 15:29 | PN ---
PROGRESS NOTE DATE OF SERVICE: 06/22/2018 This 62-year-old woman who was admitted with right lower quadrant inflammatory mass, possible retroperitoneal mass, had exploratory laparotomy, right colectomy as well as drainage of the retroperitoneal abscess. The patient had severe postoperative pain yesterday. Today the patient is feeling slightly better. Patient is being closely monitored. No chest pain. No palpitations. No fever. PHYSICAL EXAMINATION: Alert and oriented x3. Pulse 66, blood pressure 122/63, respiration 22, temperature 98.2, pulse ox 93% on room air. HEENT: Conjunctivae normal. Oral mucosa moist. NECK: No jugular venous distention. No carotid bruit. No lymph node enlargement. CARDIOVASCULAR SYSTEM: S1, S2 muffled. RESPIRATORY SYSTEM: Breath sounds diminished at the bases. A few scattered rhonchi. ABDOMEN: Soft. Status post surgery. LEGS: No edema. No swelling. NERVOUS SYSTEM: No focal deficit. LABS: WBC 6.8, hemoglobin 7.9. Sodium is 136. Vitamin B12, folic acid noted. PAST MEDICAL HISTORY: Reviewed. REVIEW OF SYSTEMS: CARDIOVASCULAR SYSTEM: No angina, palpitations. RESPIRATORY SYSTEM: As mentioned earlier. GI: As mentioned earlier. : No dysuria or retention. NERVOUS SYSTEM: No numbness, weakness. CURRENT MEDICATIONS: Reviewed. They include: 1. Vitamin C 500 mg daily. 2. Entereg. 3. Iron sulfate 300 mg b.i.d. 4. Heparin 5000 units subcutaneously q.8. 5. Dilaudid 0.5 mg q.3 p.r.n. 6. Toradol 30 mg q.6. 7. Synthroid. 8. Reglan. 9. Flagyl. 10.Morphine sulfate. 11.Narcan. 12.Habitrol. 13.Protonix. 14.Zosyn IV. 15.Ropivacaine. 16.IV fluids. ASSESSMENT: 1. Right lower quadrant inflammatory mass, possible retroperitoneal abscess, status post exploratory laparotomy, right colectomy and partial omentectomy with a drainage of the retroperitoneal abscess. 2. Severe postoperative pain, improving. 3. Elevated amylase and lipase. 4. Anemia, multifactorial, microcytic; possibly chronic gastrointestinal bleed. 5. Right ureteral stone with right-sided hydronephrosis and hydroureter. 6. Hypothyroidism. 7. History of non-Hodgkin lymphoma. 8. History of bariatric surgery and gastric bypass. 9. History of bilateral breast biopsies. 10.History of nicotine dependence. 11.Rule out atelectasis. RECOMMENDATIONS AND DISCUSSION: I recommend to continue current medications, continue with symptomatic treatment, incentive spirometry. Otherwise, we will monitor the hemoglobin closely. Hemoglobin is 7.9 at this time. The patient has some hypoalbuminemia as well. I would also recommend a chest x-ray. Encourage incentive spirometry. DVT prophylaxis. Closely follow with Surgery. Further recommendations to follow. MMODL / IJN: [id number] /
--- NOTE | 2018-06-22 15:39 | XR ---
EXAMINATION TYPE: XR chest 1V portable DATE OF EXAM: 06/22/2018 CLINICAL HISTORY: Atelectasis per order. Presumed abnormal physical exam. TECHNIQUE: Single AP portable upright view of the chest is obtained. COMPARISON: CT abdomen and pelvis from 3 days ago FINDINGS: Low lung volumes are present. There is right medial basilar opacity. There is patchy left basilar opacity. No pleural effusion or pneumothorax is seen bilaterally. Cardiac silhouette size is mildly enlarged. Osseous structures are intact. There is right internal jugular Mediport catheter ter minating in right atrium. Fracture near port attachment is noted. Vertical skin cisco overlie the m idline of the upper to mid abdomen. IMPRESSION: 1. Fragmented right internal jugular Mediport catheter. Correlate clinically. 2. Low lung volumes and cardiomegaly with patchy left basilar atelectasis and slightly more suspiciou s medial right basilar acute infiltrate and/or atelectasis
[2018-06-22] MEDS ORDERED: IPRATROPIUM-ALBUTEROL 3 ML NEB INHALATION PRN (15:52)
[2018-06-22] MEDS: IPRATROPIUM-ALBUTEROL 3 ML NEB INHALATION SCH (20:39)
--- NOTE | 2018-06-23 00:26 | PN ---
PROGRESS NOTE DATE OF SERVICE: 06/22/2018. REASON FOR FOLLOWUP: Abdominal abscess. INTERVAL HISTORY: The patient is currently afebrile. She is breathing comfortably. Abdominal pain is currently controlled with pain medication. No nausea, no vomiting. No chest pain, shortness of breath or cough. PHYSICAL EXAMINATION: Blood pressure 105/53 with a pulse of 82, temperature of 98.3, she is 92% on room air. GENERAL DESCRIPTION: A middle aged female lying in bed in no distress. RESPIRATORY SYSTEM: Unlabored breathing. Clear to auscultation anteriorly. HEART: S1, S2. Regular rate and rhythm. ABDOMEN: Soft, no guarding, no rigidity. EXTREMITIES: No edema of the feet. LABS: Hemoglobin 7.9, white count 6.8. BUN of 7, creatinine 0.63. Blood culture has been negative. DIAGNOSTIC IMPRESSION AND PLAN: Patient with abdominal abscess. The patient is status post right colectomy, partial omentectomy, and drainage of retroperitoneal abscess with . The patient is currently covered with Zosyn. Fever is resolved. White count normal. Will continue to monitor the patient closely. Continue supportive care. MMODL / IJN: [id number] /
[2018-06-23] MEDS: LEVOTHYROXINE 88 MCG TAB PO SCH (05:04)
[2018-06-23] MEDS: metroNIDAZOLE 500 MG TAB PO SCH ×4 (05:04→23:17)
[2018-06-23] MEDS: PIPERACILLIN-TAZOBACTAM 3.375 GM in SODIUM CHLORIDE 0.9% 100 ML IVPB SCH ×3 (05:05→23:17)
[2018-06-23] MEDS: D5-0.45% NACL WITH KCL 20MEQ/L 1,000 ML IV SCH ×2 (05:05→19:28)
[2018-06-23 06:44] LABS: Methylmalonic Acid 0.13 umol/L (<0.40)
[2018-06-23] MEDS: IPRATROPIUM-ALBUTEROL 3 ML NEB INHALATION SCH ×3 (07:44→18:56)
[2018-06-23] MEDS: PANTOPRAZOLE 40 MG/10 ML VIAL IV SCH (07:51)
[2018-06-23] MEDS: HEPARIN SODIUM,PORCINE 5,000 UNIT/ML 1 ML VIAL SQ SCH ×3 (07:51→23:17)
[2018-06-23] MEDS: NICOTINE 7MG/24HR PATCH TRANSDERM SCH (07:51)
[2018-06-23] MEDS: ALVIMOPAN 12 MG CAPSULE PO SCH ×2 (07:51→19:29)
--- NOTE | 2018-06-23 10:38 | XR ---
EXAMINATION TYPE: XR KUB , 2 VIEWS DATE OF EXAM ORDERED: 06/23/2018 HISTORY: stone rt ureter. COMPARISON: Previous CT scan dated 06/19/2018. FINDINGS: There are extensive midline metallic sutures. There is a large-bore, double-lumen catheter in place in the left lower quadrant. There is an IVC filter in place. Several small calcifications are noted in the right hemipelvis which may represent phleboliths. I cou ld not exclude a distal right ureteric calculus. The abdominal gas pattern is within normal limits without evidence of obstruction or free air. IMPRESSION: 1. I COULD NOT EXCLUDE A DISTAL RIGHT URETERIC CALCULUS. 2. EXTENSIVE POSTSURGICAL CHANGE.
--- NOTE | 2018-06-23 10:38 | P.PN ---
Progress Note - Text Progress Note Date: 06/23/18 The patient's resting comfortable in her bed. She has minimal points of pain. On exam her vital signs are stable. Her abdomen soft. Incision site is clean dry tach. Status post right colectomy for probable ruptured appendicitis. Patient will have epidural cath removed today. She'll start on [place] for pain. We will increase her diet.
[2018-06-23] MEDS ORDERED: HYDROmorphone 0.5 MG/0.5 ML SYRINGE IVP PRN (10:40)
[2018-06-23] MEDS: SODIUM CHLORIDE 0.9% 1,000 ML IV SCH ×2 (10:45→19:28)
[2018-06-23 10:48] LABS: Anisocytosis Marked; Basophils # (A) 0.1 k/uL (0-0.2); Basophils % (A) 1 %; Eosinophils # (A) 0.2 k/uL (0-0.7); Eosinophils % (A) 2 %; HCT 32.6 % (34.0-46.0); HGB 9.1 gm/dL (11.4-16.0); Hypochromasia Marked; Lymphocytes # (A) 0.7 k/uL (1.0-4.8); Lymphocytes % (A) 9 %; MCH 19.8 pg (25.0-35.0); MCV 70.6 fL (80.0-100.0); Mean Platelet Volume 6.7; Microcytosis Marked; Monocytes # (A) 0.4 k/uL (0-1.0); Monocytes % (A) 5 %; Neutrophils # (A) 6.3 k/uL (1.3-7.7); Neutrophils % (A) 81 %; Platelet Count 528 k/uL (150-450); Poikilocytosis Moderate; RBC 4.61 m/uL (3.80-5.40); RDW 24.6 % (11.5-15.5); WBC 7.8 k/uL (3.8-10.6)
[2018-06-23 10:57] LABS: ALT 19 U/L (9-52); AST 18 U/L (14-36); Albumin 2.7 g/dL (3.5-5.0); Alkaline Phosphatase 100 U/L (38-126); Anion Gap 7 mmol/L; Blood Urea Nitrogen 3 mg/dL (7-17); Calcium 8.6 mg/dL (8.4-10.2); Carbon Dioxide 23 mmol/L (22-30); Chloride 107 mmol/L (98-107); Glucose 107 mg/dL (74-99); Potassium 3.9 mmol/L (3.5-5.1); Sodium 137 mmol/L (137-145); Total Bilirubin 0.4 mg/dL (0.2-1.3); Total Protein 5.5 g/dL (6.3-8.2)
--- NOTE | 2018-06-23 11:19 | P.PN ---
Subjective Progress Note Date: 06/23/18 The patient was seen by for a right ureteral stone. A KUB today shows the stone still in the mid ureter. Her pain is minimal. He may need some sort of stone manipulation such as shockwave lithotripsy or ureteroscopic manipulation in the future. She continues to recuperate from her GI surgery. Objective - Vital Signs Vital signs: Vital Signs Temp 98.0 F 06/23/18 06:20 Pulse 70 06/23/18 07:55 Resp 20 06/23/18 06:20 BP 113/67 06/23/18 06:20 Pulse Ox 91 L 06/23/18 06:20 Intake & Output 06/22/18 06/23/18 06/23/18 18:59 06:59 18:59 Intake Total 710 Output Total 580 1640 Balance 130 -1640 Weight 80.286 kg Intake: Intake, IV Titration 230 Amount Ropivacaine 250 mg 230 Hydromorphone (Pf) 5 mg In Sodium Chloride 0.9% 200 ml @ Per Protocol EPIDURAL .Q0M PRN Rx#: [id number] Oral 480 Output: Drainage 30 40 Right Upper Abdomen 30 40 Urine 550 1600 Other: Voiding Method Indwelling Catheter Indwelling Catheter Indwelling Catheter # Bowel Movements 2 2 - Labs CBC & Chem 7: 06/23/18 10:27 06/23/18 10:27 Labs: Abnormal Lab Results - Last 24 Hours (Table) 06/21/18 06/23/18 06/23/18 Range/Units 08:54 10:27 10:27 Hgb 9.1 L (11.4-16.0) gm/dL Hct 32.6 L (34.0-46.0) % MCV 70.6 L (80.0-100.0) fL MCH 19.8 L (25.0-35.0) pg MCHC 28.0 L (31.0-37.0) g/dL RDW 24.6 H (11.5-15.5) % Plt Count 528 H (150-450) k/uL Lymphocytes # 0.7 L (1.0-4.8) k/uL BUN 3 L (7-17) mg/dL Glucose 107 H (74-99) mg/dL Total Protein 5.5 L (6.3-8.2) g/dL Albumin 2.7 L (3.5-5.0) g/dL RBC Folate 1,267 H (280 - 791) ng/mL Microbiology - Last 24 Hours (Table) 06/19/18 14:15 Blood Culture - Preliminary Blood No Growth after 72 hours
[2018-06-23] MEDS: FERROUS SULFATE ORAL ELIXIR 300 MG/5 ML CUP PO SCH (11:20)
[2018-06-23] MEDS: ASCORBIC ACID 500 MG TAB PO SCH (11:20)
[2018-06-23] MEDS: HYDROcodone/APAP 7.5-325MG 1 EACH TAB PO PRN ×2 (12:51→19:27)
--- NOTE | 2018-06-23 18:51 | P.PN ---
Progress Note - Text 06/238 62-year-old female status post right colectomy. Patient had an epidural for postop pain control that was DC'd this morning, patient seen, no weakness or numbness in the leg, no complaint of nausea vomiting. Patient is ambulating.
--- NOTE | 2018-06-23 20:36 | PN ---
PROGRESS NOTE DATE OF SERVICE: 06/23/2018 This 62-year-old woman was admitted with right lower extremity also had drainage of mass. The patient is on broad-spectrum IV antibiotics. Cultures are negative so far. No chest pain. No palpitations. No fever. Multiple consultants are following the patient closely. EXAM: Alert and oriented x3. Pulse is 68. Blood pressure 106/50, respirations 16, temperature 97.8, pulse ox 94% on room air. HEENT: Conjunctivae normal. Neck: No jugular venous distention. Cardiovascular: S1, S2 muffled. Respiration: Breath sounds diminished in the bases. A few scattered rhonchi and crackles. Abdomen is soft. Nontender. NERVOUS SYSTEM: No focal deficits. LABS: Labs are WBC 7.8, hemoglobin 9.1. Other labs are noted. Albumin is 2.7. ASSESSMENT: 1. Right lower quadrant inflammatory mass, possible retroperitoneal abscess, status post exploratory laparotomy, right colectomy, partial omentectomy with a drainage of retroperitoneal abscess. 2. History of postoperative pain, improved. 3. Elevated amylase and lipase. 4. Anemia, multifactorial, microcytic; possibly chronic gastrointestinal bleed. 5. Right ureteral stone with right-sided hydronephrosis, hydroureter. 6. Hypothyroidism. 7. History of non-Hodgkin's lymphoma. 8. History of bariatric surgery with gastric bypass. 9. History of bilateral breast biopsy. 10.History of nicotine dependence. 11.Rule out atelectasis. RECOMMENDATIONS AND DISCUSSION: Recommend to continue current medications, monitoring, management and symptomatic treatment. Otherwise, at this time, I would recommend incentive spirometry. Continue the rest of the medications. I would also recommend continue to monitor. Further recommendations to follow. MMODL / IJN: [id number] / JOHNNY
[2018-06-24] MEDS: SODIUM CHLORIDE 0.9% 1,000 ML IV SCH ×2 (04:14→17:09)
[2018-06-24] MEDS: HYDROcodone/APAP 7.5-325MG 1 EACH TAB PO PRN ×3 (04:42→20:54)
[2018-06-24] MEDS: PIPERACILLIN-TAZOBACTAM 3.375 GM in SODIUM CHLORIDE 0.9% 100 ML IVPB SCH ×3 (05:32→23:32)
[2018-06-24] MEDS: metroNIDAZOLE 500 MG TAB PO SCH ×4 (05:32→23:33)
[2018-06-24] MEDS: LEVOTHYROXINE 88 MCG TAB PO SCH (05:32)
[2018-06-24] MEDS: ALVIMOPAN 12 MG CAPSULE PO SCH ×2 (08:22→20:07)
[2018-06-24] MEDS: HEPARIN SODIUM,PORCINE 5,000 UNIT/ML 1 ML VIAL SQ SCH ×3 (08:22→23:32)
[2018-06-24] MEDS: PANTOPRAZOLE 40 MG/10 ML VIAL IV SCH (08:22)
[2018-06-24] MEDS: NICOTINE 7MG/24HR PATCH TRANSDERM SCH (08:22)
[2018-06-24] MEDS: IPRATROPIUM-ALBUTEROL 3 ML NEB INHALATION SCH ×3 (08:26→18:49)
--- NOTE | 2018-06-24 11:12 | P.PN ---
Progress Note - Text Progress Note Date: 06/24/18 The patient is doing well. She has minimal colon to pain. She's had multiple bowel movements. On exam her vital signs are stable. Her abdomen soft. The Status post right colectomy for presumed perforated appendicitis. Patient will be most likely discharge home tomorrow.
[2018-06-24] MEDS: D5-0.45% NACL WITH KCL 20MEQ/L 1,000 ML IV SCH ×2 (11:33→15:00)
[2018-06-24] MEDS: FERROUS SULFATE ORAL ELIXIR 300 MG/5 ML CUP PO SCH (12:16)
[2018-06-24] MEDS: ASCORBIC ACID 500 MG TAB PO SCH (12:16)
[2018-06-24 12:38] LABS: Anisocytosis Moderate; Basophils # (A) 0.1 k/uL (0-0.2); Basophils % (A) 1 %; Eosinophils # (A) 0.3 k/uL (0-0.7); Eosinophils % (A) 4 %; HCT 32.5 % (34.0-46.0); HGB 9.2 gm/dL (11.4-16.0); Hypochromasia Marked; Lymphocytes # (A) 0.6 k/uL (1.0-4.8); Lymphocytes % (A) 11 %; MCH 20.5 pg (25.0-35.0); MCHC 28.4 g/dL (31.0-37.0); MCV 72.2 fL (80.0-100.0); Mean Platelet Volume 7.1; Microcytosis Marked; Monocytes # (A) 0.3 k/uL (0-1.0); Monocytes % (A) 5 %; Neutrophils # (A) 4.6 k/uL (1.3-7.7); Neutrophils % (A) 77 %; Platelet Count 553 k/uL (150-450); Poikilocytosis Marked; RBC 4.51 m/uL (3.80-5.40); RDW 23.2 % (11.5-15.5); WBC 5.9 k/uL (3.8-10.6)
[2018-06-24 12:39] LABS: ALT 24 U/L (9-52); AST 13 U/L (14-36); Albumin 2.6 g/dL (3.5-5.0); Alkaline Phosphatase 94 U/L (38-126); Anion Gap 6 mmol/L; Blood Urea Nitrogen 3 mg/dL (7-17); Calcium 8.4 mg/dL (8.4-10.2); Carbon Dioxide 25 mmol/L (22-30); Chloride 108 mmol/L (98-107); Glucose 103 mg/dL (74-99); Potassium 3.7 mmol/L (3.5-5.1); Sodium 139 mmol/L (137-145); Total Bilirubin 0.3 mg/dL (0.2-1.3); Total Protein 5.2 g/dL (6.3-8.2)
[2018-06-24 13:44] LABS: Mixed Population RBC Present
[2018-06-24 20:37] LABS: Amylase 44 U/L (30-110); Lipase 163 U/L (23-300)
--- NOTE | 2018-06-24 21:46 | PN ---
PROGRESS NOTE DATE OF SERVICE: 06/24/2018 This 62-year-old woman who was admitted after the drainage of retroperitoneal abscess is improving significantly. No chest pain. No palpitations. No fever. EXAM: Alert and oriented x3. The pulse is 41, blood pressure 105/50, respirations 16, temperature 97.4, pulse ox is 100 percent on room air. HEENT: Conjunctivae normal. Oral mucosa moist. Neck is no jugular venous distention. No carotid bruit. No lymph node enlargement. Cardiovascular: S1, S2 muffled. RESPIRATORY: Breath sounds diminished in the bases. No rhonchi. No crackles. Abdomen is soft, status post surgery. Central nervous system: No focal deficits. LAB STUDIES: At this time shows WBC 5.9, hemoglobin 9.2 sodium 139, potassium 3.7. ASSESSMENT: 1. Right lower quadrant inflammatory mass, possibly retroperitoneal mass, status post exploratory laparotomy, right colectomy and partial omentectomy with drainage of the retroperitoneal abscess. 2. History of postoperative pain, improved. 3. Elevated amylase and lipase. 4. Anemia, multifactorial, microcytic; possibly chronic gastrointestinal bleed. 5. Right ureteral stone with right-sided hydronephrosis and hydroureter. 6. Hypothyroidism. 7. History of non-Hodgkin's lymphoma. 8. History of bariatric surgery with gastric bypass. 9. History of bilateral breast biopsy. 10.History of nicotine dependence. 11.Rule out bilateral atelectasis. RECOMMENDATIONS AND DISCUSSION: Recommend to continue current medications, management and symptomatic treatment. Continue the current medications. I would also recommend repeat labs and also recommend incentive spirometry and repeat amylase and lipase also to ensure normalcy. Otherwise rest of the recommendations per surgery. DVT prophylaxis. See further orders. Further recommendation to follow. MMODL / IJN: [id number] /
[2018-06-25] MEDS: SODIUM CHLORIDE 0.9% 1,000 ML IV SCH ×2 (01:34→12:21)
[2018-06-25] MEDS: LEVOTHYROXINE 88 MCG TAB PO SCH (05:00)
[2018-06-25] MEDS: metroNIDAZOLE 500 MG TAB PO SCH ×2 (05:00→13:28)
[2018-06-25 05:04] VITALS: BP 125/75; PULSE 63; RESP 16; TEMP 97.8
[2018-06-25] MEDS: IPRATROPIUM-ALBUTEROL 3 ML NEB INHALATION SCH ×2 (07:24→11:12)
[2018-06-25] MEDS: PANTOPRAZOLE 40 MG/10 ML VIAL IV SCH (07:47)
[2018-06-25] MEDS: HYDROcodone/APAP 7.5-325MG 1 EACH TAB PO PRN ×2 (07:47→13:28)
[2018-06-25] MEDS: HEPARIN SODIUM,PORCINE 5,000 UNIT/ML 1 ML VIAL SQ SCH (07:48)
[2018-06-25] MEDS: ALVIMOPAN 12 MG CAPSULE PO SCH (07:49)
[2018-06-25] MEDS: NICOTINE 7MG/24HR PATCH TRANSDERM SCH (07:54)
[2018-06-25] MEDS: D5-0.45% NACL WITH KCL 20MEQ/L 1,000 ML IV SCH ×3 (09:53→12:22)
--- NOTE | 2018-06-25 11:52 | P.DS ---
Providers Date of admission: 06/19/18 15:08 Expected date of discharge: 06/25/18 Attending physician: Rolando Calvert Consults: 06/19/18 15:19 Consult Physician Stat Consulting Provider: Brian Dolan Consult Reason/Comments: Sepsis, Anemia, Appendicitis w abscess, Ureteral stone Do you want consulting provider notified?: Yes 06/19/18 22:42 Consult Physician Routine Consulting Provider: Nito Garza Consult Reason/Comments: r obstructive hydro-ureteronephrosis Do you want consulting provider notified?: Yes 06/19/18 22:44 Consult Physician Routine Consulting Provider: Geovany Abbasi Consult Reason/Comments: RLQ mass-h/o NHL Do you want consulting provider notified?: Yes 06/20/18 17:10 Consult Physician Routine Consulting Provider: Bryan Castellano Consult Reason/Comments: Right lower quadrant mass, sepsis Do you want consulting provider notified?: Yes Primary care physician: Patrick [facility] Course: 62-year-old female who presented to emergency room with a chief complaint of abdominal pain. Patient states she has been having intermittent right lower quadrant abdominal pain for the past 3-4 weeks. She states that she thought she had the flu initially as she was having body aches and a fever. Patient presented to the hospital for further evaluation. CT abdomen and pelvis: Extensive wall thickening and surrounding inflammatory changes of the cecum and appendix may reflect underlying neoplasm however acute diverticulitis or acute appendicitis in this region is difficult to exclude. There is inflammatory changes of the adjacent iliopsoas with intramuscular phlegnmon or developing abscess. Patient is status post exploratory laparotomy, right colectomy, partial pneumonectomy, and drainage of retroperitoneal abscess. Patient is doing well postoperatively without any immediate complications. She is tolerating oral diet. Denies nausea or vomiting. Pain is controlled with oral medications. Hemoglobin is stable at 9.2. White count is within normal limits at 5.9. Infectious disease has been following. Augmentin prescribed at discharge. Patient noted to have cracked mediport on cxr. Patient reports she hasnt used in many years. Patient to follow up outpatient regarding mediport. Patient is stable for discharge home today. She is to follow-up with Dr. Calvert on an outpatient basis. Please see EMR for further hospital course details. Discharge Diagnosis: 1. Abdominal pain 1 month, CT scan reveals extensive wall thickening and surrounding telemetry changes of the cecum and appendix. Possible acute diverticulitis. Possible acute appendicitis. Cannot rule out underlying neoplasm. 2. status post exploratory laparotomy, right colectomy, partial pneumonectomy, and drainage of retroperitoneal abscess 3. Acute blood loss anemia, secondary to above Nurse practitioner note has been reviewed by physician. Signing provider agrees with the documented findings, assessment, and plan of care. Patient Condition at Discharge: Stable Plan - Discharge Summary New Discharge Prescriptions: New Amoxic-Pot Clav 875-125Mg [Augmentin 875-125] 1 tab PO Q12HR #20 tablet HYDROcodone/APAP 5-325MG [Currie 5-325] 1 tab PO Q4HR PRN 3 Days #18 tab PRN Reason: Pain No Action Levothyroxine Sodium [Synthroid] 175 mcg PO DAILY Ferrous Sulfate Oral Elixir [Feosol Liquid] 312 mg PO DAILY Ascorbic Acid [Vitamin C] 500 mg PO DAILY Discharge Medication List Ascorbic Acid [Vitamin C] 500 mg PO DAILY 06/19/18 [History] Ferrous Sulfate Oral Elixir [Feosol Liquid] 312 mg PO DAILY 06/19/18 [History] Levothyroxine Sodium [Synthroid] 175 mcg PO DAILY 06/19/18 [History] Amoxic-Pot Clav 875-125Mg [Augmentin 875-125] 1 tab PO Q12HR #20 tablet 06/25/18 [Rx] HYDROcodone/APAP 5-325MG [Currie 5-325] 1 tab PO Q4HR PRN 3 Days #18 tab 06/25/18 [Rx] Follow up Appointment(s)/Referral(s): Patrick King DO [Primary Care Provider] - 06/28/18 11:30 am Bryan Castellano MD [STAFF PHYSICIAN] - 07/02/18 10:45 am Rolando Calvert MD [STAFF PHYSICIAN] - 07/03/18 3:20 pm Activity/Diet/Wound Care/Special Instructions: No driving while taking Currie No lifting over 10 pounds You may shower. No soaking or tub baths Very light activity until you are reevaluated at your follow up appointment with your surgeon Keep a record of your GERTRUDE drainage. Bring with you to your follow up appointment
[2018-06-25] MEDS: PIPERACILLIN-TAZOBACTAM 3.375 GM in SODIUM CHLORIDE 0.9% 100 ML IVPB SCH (12:21)
[2018-06-25] MEDS: FERROUS SULFATE ORAL ELIXIR 300 MG/5 ML CUP PO SCH (13:28)
[2018-06-25] MEDS: ASCORBIC ACID 500 MG TAB PO SCH (13:28)
--- NOTE | 2018-06-25 16:27 | PN ---
PROGRESS NOTE DATE OF SERVICE: 06/25/2018. REASON FOR FOLLOWUP: Abdominal abscess. INTERVAL HISTORY: The patient was seen on rounds this morning. The patient has been afebrile. The patient has been breathing comfortably. Denies having any chest pain or cough. Abdominal pain is currently controlled. No nausea, vomiting, or any diarrhea. PHYSICAL EXAMINATION: Her blood pressure is 125/75 with a pulse of 60, temperature is 97.8. She is 96% on room air. General description is a middle-aged female lying in bed in no distress. Respiratory system: Unlabored breathing. Clear to auscultation anteriorly. Heart S1, S2. Regular rate and rhythm. ABDOMEN: Soft, nontender. No guarding or rigidity. Extremities: No edema of the feet. LABS: Hemoglobin 9.1, white count 5.9 with a BUN of 30, creatinine 0.58. Blood culture negative. The biopsy report currently pending. DIAGNOSTIC IMPRESSION AND PLAN: Patient admitted to the hospital with abdominal abscess likely concern for a ruptured appendicitis status post drainage of the abscess. Patient did overall improvement on Zosyn. Antibiotic will be transitioned to Augmentin 875 b.i.d. prescription sent to the pharmacy. Close outpatient followup. Plan of care discussed with the nurse practitioner for the surgical team. The patient also has evidence of a broken MediPort that will need to be removed. Surgery is aware. The patient is aware as well. Continue supportive care. NEERAJL / FRANCESCAN: [id number] /
--- NOTE | 2018-06-25 17:05 | P.PN ---
Subjective Progress Note Date: 06/25/18 Principal diagnosis: RLQ abscess, Hx of NHL Pt is doing well today, eating and drinking, ambulatory, pain is controlled, she is going to be discharged, going home with GERTRUDE drain, wound vac being discontinued. Objective - Vital Signs Vital signs: Vital Signs Temp 97.8 F 06/25/18 05:02 Pulse 63 06/25/18 05:02 Resp 16 06/25/18 05:02 BP 125/75 06/25/18 05:02 Pulse Ox 96 06/25/18 05:02 Intake & Output 06/24/18 06/25/18 06/25/18 18:59 06:59 18:59 Intake Total 240 Output Total 35 Balance 205 Weight 80.286 kg Intake: Oral 240 Output: Drainage 35 Right Upper Abdomen 35 Other: # Voids 2 - Constitutional General appearance: Present: average body habitus, cooperative, no acute di stress - EENT Eyes: Present: anicteric sclerae, EOMI ENT: Present: hearing grossly normal - Respiratory Respiratory: bilateral: CTA - Cardiovascular Heart sounds: normal: S1, S2 - Gastrointestinal Gastrointestinal Comment(s): midline wound vac, RLQ GERTRUDE drain General gastrointestinal: Present: soft - Integumentary Integumentary: Present: normal - Neurologic Neurologic: Present: CNII-XII intact - Musculoskeletal Musculoskeletal: Present: strength equal bilaterally - Psychiatric Psychiatric: Present: A&O x's 3, appropriate affect, intact judgment & insight - Labs CBC & Chem 7: 06/24/18 11:55 06/24/18 11:55 Labs: Microbiology - Last 24 Hours (Table) 06/19/18 14:15 Blood Culture - Final Blood No Growth after 144 hours Assessment and Plan (1) Appendicitis with abscess Narrative/Plan: Pending pathology Status: Acute Priority: High Code(s): K35.33 - ACUTE APPENDICITIS WITH PERF AND LOC PERITONITIS, WITH ABSCS SNOMED Code(s): 03500910 (2) NHL (non-Hodgkin's lymphoma) Narrative/Plan: Pending pathology from procedures to rule out lymphoma as an underlying cause for pt symptoms Status: Acute Code(s): C85.90 - NON-HODGKIN LYMPHOMA, UNSPECIFIED, UNSPECIFIED SITE SNOMED Code(s): 488017884 (3) Microcytic hypochromic anemia Narrative/Plan: Iron deficiency, PO iron recommended with f/u in 1 mo to evaluate effectiveness Status: Chronic Priority: Medium Code(s): D50.9 - IRON DEFICIENCY ANEMIA, UNSPECIFIED SNOMED Code(s): 77363670 Plan: Recommended that pt establish care her with [employer] and that we could follow her for NHL if needed.
--- NOTE | 2018-06-25 17:27 | PN ---
PROGRESS NOTE DATE OF SERVICE: 06/25/2018 This 62-year-old woman who was admitted after drainage of a retroperitoneal abscess is improving significantly. No chest pain. No palpitations. No fever. Surgery is planning for possible discharge at this time. The patient was seen by Urology also. On exam, alert and oriented x3. Pulse is 63, blood pressure 125/75, respiration 16, temperature 97.8, pulse ox 96% on room air. HEENT: Conjunctivae normal. NECK: No jugular venous distention. CARDIOVASCULAR SYSTEM: S1, S2 muffled. RESPIRATORY SYSTEM: Breath sounds diminished at the bases. A few scattered rhonchi. ABDOMEN: Soft. Status post surgery. LEGS: No edema. No swelling. NERVOUS SYSTEM: No focal deficit. LABS: WBC 5.9, hemoglobin 9.2. Sodium 139. The cultures are noted. ASSESSMENT: 1. Right lower quadrant abdominal pain and mass, possible retroperitoneal mass, status post exploratory laparotomy, right colectomy as well as partial omentectomy with drainage of retroperitoneal abscess. 2. History of postoperative pain, improved. 3. Elevated amylase and lipase, improved. 4. Anemia, multifactorial, microcytic; possibly acute gastrointestinal bleed. 5. Right ureteral stone with right-sided hydronephrosis and hydroureter. 6. Hypothyroidism. 7. History of non-Hodgkin lymphoma. 8. History of bariatric surgery with gastric bypass. 9. History of bilateral breast biopsy. 10.History of nicotine dependence. 11.Possible bibasilar atelectasis. RECOMMENDATIONS AND DISCUSSION: I recommend to continue current medications, continue with the monitoring, symptomatic treatment. Otherwise, I would recommend resuming the home medications and antibiotics. Closely follow with Infectious Disease. Rest of the recommendations per Surgery. Follow up with primary physician in the outpatient setting. MMODL / IJN: [id number] /
[2018-06-26] MEDS ORDERED: PANTOPRAZOLE 40 MG TABLET PO SCH (07:30)
== END 2018-06-25 14:32 | disposition home or self-care (01) | DRG 853 ==
LOC: EC 13:10 → 4MS4W 15:08
PROVIDERS: ADMIT Surgery; ATTEND Surgery
PROC: 30233N1 Transfusion of Nonautologous Red Blood Cells into Peripheral Vein, Percutaneous Approach (ICD-10-PCS; 2018-06-19)
PROC: 0DBU0ZZ Excision of Omentum, Open Approach (ICD-10-PCS; 2018-06-20)
PROC: 3E0S3NZ Introduction of Analgesics, Hypnotics, Sedatives into Epidural Space, Percutaneous Approach (ICD-10-PCS; 2018-06-20)
PROC: 0DTF0ZZ Resection of Right Large Intestine, Open Approach (ICD-10-PCS; principal; 2018-06-20 09:15)
DX: A41.9 Sepsis, unspecified organism (principal); K35.21 Acute appendicitis with generalized peritonitis, with abscess; K57.33 Diverticulitis of large intestine without perforation or abscess with bleeding; K68.19 Other retroperitoneal abscess; N13.2 Hydronephrosis with renal and ureteral calculous obstruction; D62 Acute posthemorrhagic anemia; C18.0 Malignant neoplasm of cecum; E03.9 Hypothyroidism, unspecified; D50.9 Iron deficiency anemia, unspecified; R63.0 Anorexia; G89.18 Other acute postprocedural pain; F17.210 Nicotine dependence, cigarettes, uncomplicated; Z68.28 Body mass index [BMI] 28.0-28.9, adult; Z71.3 Dietary counseling and surveillance; Z79.890 Hormone replacement therapy; Z79.899 Other long term (current) drug therapy; Z98.84 Bariatric surgery status; Z85.72 Personal history of non-Hodgkin lymphomas; Z87.442 Personal history of urinary calculi; Z92.21 Personal history of antineoplastic chemotherapy; Z80.7 Family history of other malignant neoplasms of lymphoid, hematopoietic and related tissues; Z80.0 Family history of malignant neoplasm of digestive organs
CPT/HCPCS: 36415; 71045; 74018; 74177; 80048; 80053; 81003; 82150; 82607; 82728; 82747; 83540; 83550; 83605; 83690; 83921; 85025; 86850; 86900; 86901; 86920; 87040; 88309; 94640; 96365; 96375; 99291

== ENCOUNTER 2018-07-12 08:33 | Day surgery (SDC) | payer OTHER ==
[2018-07-09 12:06] VITALS: BMI 27.4
[~2018-07-12 08:33] MED LIST: DEXAMETHASONE SOD PHOSPHATE 10 MG/ML 1 ML VIAL IV ONE; HEPARIN SODIUM,PORCINE 5,000 UNIT/ML 1 ML VIAL SQ ONE; LACTATED RINGERS 1,000 ML IV SCH; LIDOCAINE 1% 20 ML VIAL (10MG/ML) FOR IV START INTRADERMA PRN; ONDANSETRON 4 MG/2 ML VIAL IVP ONE; SCOPOLAMINE 1.5MG/72HR PATCH TRANSDERM ONE; ceFAZolin IN SWFI 2 GM/20 ML SYRINGE IVP ONE; fentaNYL (PF) 50 MCG/ML 2 ML AMP IV PRN
[2018-07-12 08:59] VITALS: RESP 16; TEMP 97.1
--- NOTE | 2018-07-12 10:29 | P.GSHP ---
History of Present Illness H&P Date: 07/12/18 Chief Complaint: Sebaceous cyst scalp This is a 62-year-old female who presents today for excision of scalp sebaceous cyst and removal of right subclavian Port-A-Cath. Past Medical History Past Medical History: Cancer Additional Past Medical History / Comment(s): non-hodgkins lymphoma. STILL HAS HAILY IN ABDOMINAL AREA-TO BE REMOVED 07/10/18 PER PT History of Any Multi-Drug Resistant Organisms: None Reported Past Surgical History: Appendectomy, Bariatric Surgery Additional Past Surgical History / Comment(s): gastric bypass 2004, green field filter, port placement, bilateral breast biopsies, EXPLORATORY LAP 06/20/18, PARTIAL RT COLECTOMY TO REMOVE STAGE 2 CANCER AND OMENTECTOMY Past Anesthesia/Blood Transfusion Reactions: No Reported Reaction Smoking Status: Former smoker - Past Family History Sister(s) Family Medical History: Cancer Father Family Medical History: Cancer Brother(s) Family Medical History: Cancer Medications and Allergies Home Medications Medication Instructions Recorded Confirmed Type Levothyroxine Sodium [Synthroid] 175 mcg PO DAILY 06/19/18 07/12/18 History Allergies Allergy/AdvReac Type Severity Reaction Status Date / Time No Known Allergies Allergy Verified 07/09/18 11:57 Surgical - Exam Vital Signs Temp Pulse Resp BP Pulse Ox 97.1 F L 75 16 137/63 99 07/12/18 08:42 07/12/18 08:42 07/12/18 08:42 07/12/18 08:42 07/12/18 08:42 - General well developed, well nourished, no distress - Eyes PERRL - ENT normal pinna - Neck no masses - Respiratory normal expansion - Cardiovascular Rhythm: regular - Abdomen Abdomen: soft, non tender - Integumentary 5 cm sebaceous cyst of the anterior scalp Assessment and Plan Assessment: 5 cm sebaceous cyst of anterior scalp, we will perform excision. We'll perform removal of right subclavian Port-A-Cath
[2018-07-12] MEDS ORDERED: KETAMINE 10 MG/ML 20 ML VIAL ONE (10:46)
[2018-07-12] MEDS ORDERED: MIDAZOLAM 2 MG/2 ML VIAL ONE (10:46)
[2018-07-12] MEDS ORDERED: PROPOFOL 10 MG/ML 20 ML VIAL IV ONE (10:46)
[2018-07-12] MEDS ORDERED: fentaNYL (PF) 50 MCG/ML 2 ML AMP ONE (10:46)
[2018-07-12] MEDS ORDERED: BUPIVACAIN-EPI 0.5%-1:200,000 30 ML VIAL SQ ONE ×2 (11:13)
--- NOTE | 2018-07-12 11:52 | P.OP ---
Date of Procedure: 07/12/18 Preoperative Diagnosis: Sebaceous cyst scalp History of colon cancer Postoperative Diagnosis: Sebaceous cyst scalp History of colon cancer Procedure(s) Performed: Removal of Port-A-Cath Excision of sebaceous cyst scalp Anesthesia: JEWELL Surgeon: Rolando Calvert Estimated Blood Loss (ml): 2 Pathology: other (Sebaceous cyst) Condition: stable Disposition: PACU Description of Procedure: The patient's placed on the operating table in the supine position. She received IV sedation. Her skin was prepped and draped usual sterile fashion. The area of her right subclavian Port-A-Cath was anesthetized 1% local Xylocaine. A skin incision was made over the port site and using blunt and sharp dissection and left cautery the port was dissected free. The catheter was not attached to the port. A counterincision the tract of the catheter was palpated the catheter could be felt. The second skin incision was made and then using blunt and sharp dissection with cautery the catheter was found. The catheter was extracted completely. The skin was closed interrupted 3-0 Monocryl suture. Next the patient's scalp cyst was anesthetized 1% local Xylocaine. Using a 15 blade the skin was incised and then the sebaceous cyst was dissected free. The skin was closed interrupted 3-0 Monocryl suture. Dermabond dressings was applied. Patient top procedure well and was sent to recovery in stable condition.
[2018-07-12 12:08] VITALS: BP 131/63; PULSE 53
== END 2018-07-12 12:26 | disposition home or self-care (01) ==
LOC: OR 08:33
PROVIDERS: ATTEND Surgery
DX: L72.11 Pilar cyst (principal); E07.9 Disorder of thyroid, unspecified; Z45.2 Encounter for adjustment and management of vascular access device; Z85.72 Personal history of non-Hodgkin lymphomas; Z85.038 Personal history of other malignant neoplasm of large intestine; Z87.891 Personal history of nicotine dependence; Z80.9 Family history of malignant neoplasm, unspecified; Z98.84 Bariatric surgery status; Z90.49 Acquired absence of other specified parts of digestive tract; Z79.890 Hormone replacement therapy
CPT/HCPCS: 88304; 36590; 11426; J2250; J1644; J1100; J2405; J3010; J2704

== ENCOUNTER 2018-07-31 05:43 | Day surgery (SDC) | payer OTHER ==
[~2018-07-31 05:43] MED LIST changes: +HYDROmorphone 0.5 MG/0.5 ML SYRINGE IVP PRN; -LIDOCAINE 1% 20 ML VIAL (10MG/ML) FOR IV START INTRADERMA PRN; +MIDAZOLAM (PF) 2 MG/2 ML VIAL IV PRN; +Pre Op ABX Message 1 EACH MISC MISCELLANE ONE; -ceFAZolin IN SWFI 2 GM/20 ML SYRINGE IVP ONE; -fentaNYL (PF) 50 MCG/ML 2 ML AMP IV PRN
[2018-07-31 06:11] VITALS: RESP 16; TEMP 98.2
[2018-07-31] MEDS ORDERED: LIDOCAINE 1% 20 ML VIAL (10MG/ML) FOR IV START INTRADERMA ONE (06:18)
[2018-07-31] MEDS ORDERED: MIDAZOLAM 2 MG/2 ML VIAL ONE (06:56)
[2018-07-31] MEDS ORDERED: PROPOFOL 10 MG/ML 20 ML VIAL IV ONE (06:56)
[2018-07-31] MEDS ORDERED: KETAMINE 10 MG/ML 20 ML VIAL ONE (06:56)
[2018-07-31] MEDS ORDERED: fentaNYL (PF) 50 MCG/ML 2 ML AMP ONE (06:56)
[2018-07-31] MEDS ORDERED: KETOROLAC 30 MG/ML 1 ML VIAL ONE (06:56)
[2018-07-31] MEDS ORDERED: HEPARIN SODIUM,PORCINE 100 UNIT/ML 5 ML VIAL IV ONE ×2 (07:25)
[2018-07-31] MEDS ORDERED: IOHEXOL 180 MG/ML 1 ML ML MISCELLANE ONE (07:25)
[2018-07-31] MEDS ORDERED: BUPIVACAINE-EPI 0.5%-1:200,000 10 ML VIAL SQ ONE ×2 (07:26)
[2018-07-31 08:02] VITALS: BP 108/68; PULSE 58
--- NOTE | 2018-07-31 08:18 | XR ---
EXAMINATION TYPE: XR chest 1V confirm line plcar DATE OF EXAM: 07/31/2018 COMPARISON: 06/22/2018 HISTORY: 62-year-old female Port-A-Cath placement TECHNIQUE: Single frontal view of the chest is obtained. FINDINGS: Left anterior chest wall injection port with catheter tip at the mid SVC level. The previous fracture or right-sided injection port and catheter has been removed. No appreciable pneumothorax. Heart uppe r limits of normal in size. Mild interstitial prominence. No consolidation or pleural effusion. Mild S-shaped scoliosis. IMPRESSION: Left-sided injection port with subclavian access. Catheter tip at the mid SVC level. No pneumothorax.
--- NOTE | 2018-07-31 08:55 | FL ---
EXAMINATION TYPE: FL guided central line placement DATE OF EXAM: 07/31/2018 FLUOROSCOPY Fluoroscopy time of 5 seconds was used during Port-A-Cath insertion. 2 image/s document/s the procedu re.
--- NOTE | 2018-08-15 07:28 | P.OP ---
Date of Procedure: 07/31/18 Preoperative Diagnosis: Colon cancer Postoperative Diagnosis: Colon cancer Procedure(s) Performed: Insertion of left subclavian Port-A-Cath Anesthesia: TENZIN CORCORAN Surgeon: Rolando Calvert Estimated Blood Loss (ml): 5 Pathology: none sent Condition: stable Disposition: PACU Description of Procedure: MPROCEDURE: The patient was placed on the operating table in the supine position. She received MAC anesthetic. The left chest was prepped and draped in the usual sterile fashion. The skin underneath the right clavicle was anesthetized with 1% Xylocaine and using Seldinger technique, the right subclavian vein was cannulized. The wire was placed through the needle and positioned under fluoroscopy. Next, the needle was removed and the port site was anesthetized with 1% Xylocaine. Skin was incised with #15 blade and port pocket was made using blunt and sharp dissection. Following this the catheter was attached to the sport and the port was flushed. The port was positioned into the pocket site and was secured with 3-0 Vicryl suture. The catheter was then brought out through the wire site and then the dilator sheath was placed over the wire and the dilator and the wire were removed. The catheter was placed through the sheath and the sheath was removed. The port was flushed with hep-lock solution. Skin was closed with interrupted 3-0 Vicryl sutures. Steri- Strips were applied. The patient tolerated the procedure well. The patient was sent to recovery room for chest x-ray after the procedure.
== END 2018-07-31 08:32 | disposition home or self-care (01) ==
LOC: OR 05:43
PROVIDERS: ATTEND Surgery
DX: C18.9 Malignant neoplasm of colon, unspecified (principal); E07.9 Disorder of thyroid, unspecified; Z87.891 Personal history of nicotine dependence; Z98.84 Bariatric surgery status; Z79.890 Hormone replacement therapy; Z79.899 Other long term (current) drug therapy
CPT/HCPCS: 77001; 36561; C1788; J2250; J1644; J1642; J1100; Q9965; J2405; J3010; J1885; J2704

== ENCOUNTER → 2019-01-01 | Outpatient (CLI) | payer OTHER ==
--- NOTE | 2019-01-02 10:38 | CT ---
EXAMINATION TYPE: CT abdomen pelvis w con DATE OF EXAM: 01/01/2019 COMPARISON: CT 06/19/2018 HISTORY: Follow up for colon cancer. CT DLP: 691.5 mGycm Automated exposure control for dose reduction was used. TECHNIQUE: Helical acquisition of images from the lung bases through the pelvis have been completed. CONTRAST: Performed with Oral Contrast and with IV Contrast, patient injected with 100ml mL of Isovue 300. FINDINGS: Inferior vena cava filter is again noted. Postop changes are noted at the stomach as on annabel or. LUNG BASES: No significant abnormality is appreciated. AORTA: No significant abnormality is appreciated. LIVER/GB: No significant interval change is appreciated. PANCREAS: No significant abnormality is seen. SPLEEN: No significant double change is seen, there is splenomegaly. ADRENALS: No significant abnormality is seen. KIDNEYS: Improvement in the right hydronephrosis, the right ureteral calculus is no longer evident. T he adjacent iliopsoas inflammatory changes, possible abscess has cleared. REPRODUCTIVE ORGANS: No significant abnormality is seen BOWEL: The inflammatory change seen at the level of the cecum is no longer seen, patient is post lap arotomy, the appendix is not seen. FREE AIR: No Free Air visible. ASCITES: None visible. PELVIC ADENOPATHY: None visualized. RETROPERITONEAL ADENOPATHY: No Retroperitoneal Adenopathy visible. URINARY BLADDER: No significant abnormality is seen. OSSEOUS STRUCTURES: No significant interval change is seen. Patient shows spondylolysis change at L5 with listhesis. IMPRESSION: Interval improvement the level of cecum as described. Postop changes. Right ureteral calc ulus and right-sided hydronephrosis no longer seen. Splenomegaly persists.
== END | disposition home or self-care (01) ==
LOC: RADCTMAIN 15:45
PROVIDERS: ATTEND Internal Medicine Hematology & Oncology
DX: R16.1 Splenomegaly, not elsewhere classified (principal); Z98.890 Other specified postprocedural states; C18.2 Malignant neoplasm of ascending colon
CPT/HCPCS: 74177; Q9967 ×2

== ENCOUNTER → 2019-07-27 | Outpatient (CLI) | payer OTHER | END | disposition home or self-care (01) | LOC: LABWHC1 08:05 | PROVIDERS: ATTEND Surgery | DX: U07.1 COVID-19 (principal) | CPT/HCPCS: 87635 ==

== ENCOUNTER 2019-07-29 07:31 | Day surgery (SDC) | payer OTHER ==
[2019-07-26 10:24] VITALS: BMI 25.0
[~2019-07-29 07:31] MED LIST changes: -DEXAMETHASONE SOD PHOSPHATE 10 MG/ML 1 ML VIAL IV ONE; -HEPARIN SODIUM,PORCINE 5,000 UNIT/ML 1 ML VIAL SQ ONE; -HYDROmorphone 0.5 MG/0.5 ML SYRINGE IVP PRN; +LIDOCAINE 1% (10MG/ML) FOR IV START INTRADERMA PRN; -MIDAZOLAM (PF) 2 MG/2 ML VIAL IV PRN; -ONDANSETRON 4 MG/2 ML VIAL IVP ONE; -Pre Op ABX Message 1 EACH MISC MISCELLANE ONE; -SCOPOLAMINE 1.5MG/72HR PATCH TRANSDERM ONE
[2019-07-29] MEDS ORDERED: PROPOFOL 10 MG/ML 20 ML VIAL IV ONE (09:01)
--- NOTE | 2019-07-29 09:07 | P.GSHP ---
History of Present Illness H&P Date: 07/29/19 Chief Complaint: History of right colon cancer This a 63-year-old female presents today for colonoscopy patient. History of right colectomy. Patient's history of colon cancer within the appendix. Past Medical History Past Medical History: Blood Disorder, Cancer, Sleep Apnea/CPAP/BIPAP, Thyroid Disorder Additional Past Medical History / Comment(s): Ruptured appendix; STAGE 2 BOWEL CANCER DX 07/12/18, HAD CHEMO, last TREATMENT Nov 2018. Non-Hodgkins Lymphoma. Hx Anemia, currently resolved. Hx Sleep Apnea, no tx currently. History of Any Multi-Drug Resistant Organisms: None Reported Past Surgical History: Appendectomy, Bariatric Surgery, Bowel Resection, Breast Surgery Additional Past Surgical History / Comment(s): Scalp Cyst REMOVED. INSERTION PORT A CATHETER x2. 06/20/18, EXPLORATORY LAP WITH PARTIAL RIGHT COLECTOMY AFTER RUPTURED APPENDIX, OMENTECTOMY TO REMOVE STAGE 2 CANCER. Gastric bypass 2004. Green field filter. Bilateral breast biopsies. Past Anesthesia/Blood Transfusion Reactions: No Reported Reaction, Family History of Problems w/ Anesthesia Additional Past Anesthesia/Blood Transfusion Reaction / Comment(s): Brother awakens violently. Smoking Status: Current every day smoker - Past Family History Sister(s) Family Medical History: Cancer Additional Family Medical History / Comment(s): Non-hodgkins. Maternal grandmother - breast cancer. Father Family Medical History: Cancer Additional Family Medical History / Comment(s): lung cancer Brother(s) Family Medical History: Cancer Additional Family Medical History / Comment(s): colon Medications and Allergies Home Medications Medication Instructions Recorded Confirmed Type Levothyroxine Sodium [Synthroid] 175 mcg PO QAM 06/19/18 07/29/19 History Guaifen/Phenyleph/Acetaminophn 1 each PO DIRECTED PRN 07/26/19 07/29/19 History [Tylenol Sinus Severe Caplet] Allergies Allergy/AdvReac Type Severity Reaction Status Date / Time No Known Allergies Allergy Verified 07/29/19 07:45 Surgical - Exam - General well developed, well nourished, no distress - Eyes PERRL - ENT normal pinna - Neck no masses - Respiratory normal expansion - Cardiovascular Rhythm: regular - Abdomen Abdomen: soft, non tender Assessment and Plan Assessment: History of colon cancer. We'll perform colonoscopy.
--- NOTE | 2019-07-29 09:39 | P.OP ---
Date of Procedure: 07/29/19 Preoperative Diagnosis: History of right colon cancer Postoperative Diagnosis: Diverticulosis Procedure(s) Performed: Colonoscopy Anesthesia: MAC Surgeon: Rolando Calvert Pathology: none sent Condition: stable Disposition: PACU Description of Procedure: Patient's placed on the endoscopy table lateral position. She received IV sedation. Digital rectal exam was performed which revealed no abnormalities. Flexible colonoscope was then placed patient anus passed throughout the entire colon. Patient. Requesting. The ileocolonic anastomosis visualized. The transverse colon appeared normal in the descending; was mild diverticular changes. Scope was brought back the rectum this appeared normal. Scope was withdrawn for patient.
[2019-07-29 09:54] VITALS: BP 112/58; PULSE 55; RESP 16
== END 2019-07-29 10:17 | disposition home or self-care (01) ==
LOC: ORWHC2ENDO 07:31
PROVIDERS: ATTEND Surgery
DX: Z08 Encounter for follow-up examination after completed treatment for malignant neoplasm (principal); K57.30 Diverticulosis of large intestine without perforation or abscess without bleeding; Z85.038 Personal history of other malignant neoplasm of large intestine; E07.9 Disorder of thyroid, unspecified; C85.90 Non-Hodgkin lymphoma, unspecified, unspecified site; F17.200 Nicotine dependence, unspecified, uncomplicated; Z92.21 Personal history of antineoplastic chemotherapy; Z79.890 Hormone replacement therapy; Z98.84 Bariatric surgery status; Z90.49 Acquired absence of other specified parts of digestive tract; Z98.890 Other specified postprocedural states; Z87.09 Personal history of other diseases of the respiratory system; Z87.19 Personal history of other diseases of the digestive system; Z80.3 Family history of malignant neoplasm of breast; Z80.7 Family history of other malignant neoplasms of lymphoid, hematopoietic and related tissues; Z80.1 Family history of malignant neoplasm of trachea, bronchus and lung; Z80.0 Family history of malignant neoplasm of digestive organs
CPT/HCPCS: 87635; 45378; J2704

== ENCOUNTER → 2019-12-03 | Outpatient (CLI) | payer OTHER ==
[2019-12-03 09:28] LABS: African American GFR (CKD) >90 (>60 ml/min/1.73 sqM); Blood Urea Nitrogen 15 mg/dL (7-17); Non-African American GFR(CKD) >90 (>60 ml/min/1.73 sqM)
--- NOTE | 2019-12-03 14:47 | CT ---
EXAMINATION TYPE: CT abdomen pelvis w con DATE OF EXAM: 12/03/2019 COMPARISON: 01/01/2019 INDICATION: Colon cancer DLP: 887.0 mGycm, Automated exposure control for dose reduction was used. CONTRAST: 100 mL of Isovue 300. Study performed with Oral Contrast TECHNIQUE: Axial images were obtained from above the diaphragm to the pubic rami in the axial plane a t 5 mm thick sections. Reconstructed images are reviewed on the computer in the coronal plane. FINDINGS: Limited CT sections are obtained the lung bases. The very limited portions of the lung bases visuali zed are clear. CT ABDOMEN: Liver: Normal Spleen: Normal Pancreas: Normal Adrenal glands: The adrenal glands are normal. Gallbladder: Normal Kidneys: No masses are evident. No hydronephrosis is present. No cysts are present. Delayed images were obtained through the kidneys, which remain unremarkable. Aorta: Vascular calcification is within the aorta. Inferior vena cava: There is a filter within the inferior vena cava. CT PELVIS: Loops of bowel within the abdomen and pelvis are normal. Postsurgical anastomosis in the descending colon. There are loops of bowel which are incompletely distended or lack oral contrast limiting the ir evaluation. Appendix: Not identified. No suspicious tubular structures or inflammatory changes or other secondary signs of acute appendicitis is evident. Urinary bladder: Normal. Genitourinary structures: Uterus and adnexa appear within normal limits. No free fluid is within the pelvis. Osseous structures: No suspicious lytic or sclerotic lesions. Degenerative changes are at the bilater al hips. IMPRESSIONS: 1. No suspicious acute changes to suggest recurrent or metastatic colon cancer
== END | disposition home or self-care (01) ==
LOC: RADCTMAIN 08:21
PROVIDERS: ATTEND Internal Medicine Hematology & Oncology
DX: C18.2 Malignant neoplasm of ascending colon (principal); C85.98 Non-Hodgkin lymphoma, unspecified, lymph nodes of multiple sites
CPT/HCPCS: 82565; 84520; 74177; 36415; Q9967

== ENCOUNTER → 2020-07-15 | Outpatient (CLI) | payer OTHER ==
--- NOTE | 2020-07-15 14:55 | US ---
EXAMINATION TYPE: US venous doppler duplex LE RT DATE OF EXAM: 07/15/2020 2:41 PM COMPARISON: NONE CLINICAL HISTORY: M79.604 Pain right leg. Pain SIDE PERFORMED: Right TECHNIQUE: The lower extremity deep venous system is examined utilizing real time linear array sonog christiano with graded compression, doppler sonography and color-flow sonography. VESSELS IMAGED: Common Femoral Vein Deep Femoral Vein Greater Saphenous Vein * Femoral Vein Popliteal Vein Small Saphenous Vein * Proximal Calf Veins (* superficial vessels) Right Leg: Negative for DVT IMPRESSION: No evidence of DVT at this time.
== END | disposition home or self-care (01) ==
LOC: RADUSWWP 14:16
PROVIDERS: ATTEND Family Medicine
DX: M79.604 Pain in right leg (principal)

== ENCOUNTER → 2020-12-07 | Outpatient (CLI) | payer OTHER ==
--- NOTE | 2020-12-07 11:49 | CT ---
EXAMINATION TYPE: CT abdomen pelvis w con DATE OF EXAM: 12/07/2020 HISTORY: colon CA CT DLP: 913.3mGycm Automated Exposure Control for Dose Reduction was Utilized. CONTRAST: CT scan of the abdomen and pelvis is performed with oral and with IV Contrast, patient injected with 100 mL of Isovue 300. COMPARISON: Prior CT December 03, 2019 and older studies FINDINGS: LUNG BASES: No significant abnormality is appreciated. LIVER/GB: No significant abnormality is appreciated. PANCREAS: No significant abnormality is seen. SPLEEN: No significant abnormality is seen. ADRENALS: No significant abnormality is seen. KIDNEYS: No significant abnormality is seen. BOWEL: Surgical changes to stomach presumed from gastric bypass just below diaphragm are redemonstrat ed . Oral contrast reaches the level of the rectum. Surgical changes to the base of cecum redemonstra joseph at the site of original neoplasm. Additional surgical changes to the left lower quadrant prominen t noncontrast filled small bowel loop noted with increased focal dilatation at this level. No obvious new suspicious mass. UTERUS/ADNEXA: No gross abnormality seen. LYMPH NODES: No new greater than 1cm abdominal or pelvic lymph nodes are appreciated. OSSEOUS STRUCTURES: Advanced degenerative change bilateral hip joints with narrowing along with scler osis and subchondral cystic change right greater than left is redemonstrated. Levoconvex scoliosis ce ntered at the L2 level again seen. Grade 2 anterolisthesis L5 on S1 with advanced disc space narrowin g redemonstrated. OTHER: Overlying anterior deep subcutaneous skin cisco are redemonstrated. Stable infrarenal IVC fi lter. IMPRESSION: No new suspicious mass or adenopathy to suggest neoplastic recurrence.
== END | disposition home or self-care (01) ==
LOC: RADPROMAIN 09:32
PROVIDERS: ATTEND Internal Medicine Hematology & Oncology
DX: C18.9 Malignant neoplasm of colon, unspecified (principal)
CPT/HCPCS: 74177; Q9967

== ENCOUNTER 2021-05-20 09:10 | Day surgery (SDC) | payer OTHER ==
[2021-05-18 12:13] VITALS: BMI 29.0
[~2021-05-20 09:10] MED LIST changes: -LIDOCAINE 1% (10MG/ML) FOR IV START INTRADERMA PRN
[2021-05-20 09:34] VITALS: TEMP 97.2
[2021-05-20] MEDS ORDERED: PROPOFOL 10 MG/ML 20 ML VIAL IV ONE (09:49)
--- NOTE | 2021-05-20 09:51 | P.GSHP ---
History of Present Illness H&P Date: 05/20/21 Chief Complaint: History of colon cancer This is a 65-year-old female with previous history of right colon cancer. Patient resents today for colonoscopy Past Medical History Past Medical History: Blood Disorder, Cancer, Sleep Apnea/CPAP/BIPAP, Thyroid Disorder Additional Past Medical History / Comment(s): STAGE 2 BOWEL CANCER DX 07/12/18, HX CHEMO, last TREATMENT Nov 2018. Non-Hodgkins Lymphoma., Skin Cancer., Hx Anemia., Sleep Apnea resolved with wt loss., pt has port-a-cath., ", Occasional Bradycardia" History of Any Multi-Drug Resistant Organisms: None Reported Past Surgical History: Appendectomy, Bariatric Surgery, Breast Surgery Additional Past Surgical History / Comment(s): SCALP CYST REMOVED. INSERTION & REMOVAL OF PORT A CATHETER. EXPLORATORY LAP WITH PARTIAL RIGHT COLECTOMY AFTER RUPTURED APPENDIX AND OMENTECTOMY TO REMOVE STAGE 2 CANCER. Gastric bypass 2004. Green field filter. Bilateral breast biopsies., port-a-cath reinserted. Past Anesthesia/Blood Transfusion Reactions: No Reported Reaction, Family History of Problems w/ Anesthesia Additional Past Anesthesia/Blood Transfusion Reaction / Comment(s): states brother becomes violent. Past Psychological History: No Psychological Hx Reported Smoking Status: Current every day smoker Past Alcohol Use History: None Reported Additional Past Alcohol Use History / Comment(s): Smokes 5-10 cigarettes daily, Hx OF SMOKING OFF AND ON Past Drug Use History: None Reported - Past Family History Sister(s) Family Medical History: Cancer Additional Family Medical History / Comment(s): NON HODGKINS LYMPHOMA Father Family Medical History: Cancer Additional Family Medical History / Comment(s): LUNG CANCER Brother(s) Family Medical History: Cancer Additional Family Medical History / Comment(s): COLON CANCER Medications and Allergies Home Medications Medication Instructions Recorded Confirmed Type Levothyroxine Sodium [Synthroid] 175 mcg PO DAILY 06/19/18 05/20/21 History Guaifen/Phenyleph/Acetaminophn 1 each PO DIRECTED PRN 07/26/19 05/20/21 History [Tylenol Sinus Severe Caplet] Multivit with Calcium,Iron,Min 1 each PO DAILY 05/18/21 05/20/21 History [Women's Multivitamin] Naproxen Sodium [Aleve] 220 mg PO DIRECTED PRN 05/18/21 05/20/21 History Allergies Allergy/AdvReac Type Severity Reaction Status Date / Time No Known Allergies Allergy Verified 05/20/21 09:23 Surgical - Exam Vital Signs Temp Pulse Resp BP Pulse Ox 97.2 F L 71 15 135/65 97 05/20/21 09:33 05/20/21 09:33 05/20/21 09:33 05/20/21 09:33 05/20/21 09:33 - General well developed, well nourished, no distress - Eyes PERRL - ENT normal pinna - Neck no masses - Respiratory normal expansion - Cardiovascular Rhythm: regular - Abdomen Abdomen: soft, non tender Assessment and Plan Assessment: We'll perform colonoscopy Plan: History of colon cancer
--- NOTE | 2021-05-20 10:10 | P.OP ---
Date of Procedure: 05/20/21 Preoperative Diagnosis: History of right colon cancer Postoperative Diagnosis: Transverse colon polyp Procedure(s) Performed: Colonoscopy Anesthesia: MAC Surgeon: Rolando Calvert Pathology: other (Transverse colon colon polyp) Condition: stable Disposition: PACU Description of Procedure: Patient's placed on the endoscopy table in the lateral position. She received IV sedation. Digital rectal exam was performed which revealed no abnormalities. The scope was then placed patient anus passed throughout the entire colon. The ileal colonic anastomosis visualized. This appeared normal. In the transverse colon there is a small polyp seen was removed with the cold forcep. Main her of the transverse colon appeared normal. In the descending; was a few scattered diverticula. Scope was brought back the rectum and this appeared normal. Scope withdrawn for patient.
[2021-05-20 10:29] VITALS: BP 109/74; PULSE 57; RESP 20
== END 2021-05-20 10:40 | disposition home or self-care (01) ==
LOC: ORWHC2ENDO 09:10
PROVIDERS: ATTEND Surgery
DX: Z12.11 Encounter for screening for malignant neoplasm of colon (principal); K51.40 Inflammatory polyps of colon without complications; K57.30 Diverticulosis of large intestine without perforation or abscess without bleeding; Z85.038 Personal history of other malignant neoplasm of large intestine; Z98.0 Intestinal bypass and anastomosis status; G47.33 Obstructive sleep apnea (adult) (pediatric); F17.210 Nicotine dependence, cigarettes, uncomplicated; Z79.890 Hormone replacement therapy
CPT/HCPCS: 88305; 45380; J2704

== ENCOUNTER → 2021-12-15 | Outpatient (CLI) | payer OTHER, MEDICARE ==
[2021-12-15 11:18] LABS: African American GFR (CKD) >90 (>60 ml/min/1.73 sqM); Blood Urea Nitrogen 17 mg/dL (7-17); Non-African American GFR(CKD) >90 (>60 ml/min/1.73 sqM)
--- NOTE | 2021-12-15 15:29 | CT ---
EXAMINATION TYPE: CT abdomen pelvis w con DATE OF EXAM: 12/15/2021 INDICATION: Lymphoma COMPARISON: 12/07/2020 CT DLP: 1155.3 mGycm CONTRAST: Performed with Oral Contrast and with IV Contrast, patient injected with 70 mL of Isovue 300. TECHNIQUE: Axial images at 5 mm thick sections. Reconstructed images in the coronal plane. Delayed images through the kidneys. FINDINGS: CT CHEST: Portion of the thyroid visualized is normal. No suspicious lung nodules or focal infiltrates are present. No enlarged mediastinal or hilar adenopathy is evident. The ascending aorta diameter at the level of the main pulmonary artery is 3.2 cm. The main pulmonary artery diameter at the bifurcation is 2.[address] ABDOMEN: Liver: Normal Spleen: Normal Pancreas: Normal Adrenal glands: The adrenal glands are normal. Gallbladder: Normal Kidneys: No masses are evident. No hydronephrosis is present. No cysts are present. Delayed images were obtained through the kidneys, which remain unremarkable. Aorta: Vascular calcification is within the aorta. Inferior vena cava: Filters within the inferior vena cava. CT PELVIS: Loops of bowel within the abdomen and pelvis are normal. There are loops of bowel which are incom pletely distended or lack oral contrast limiting their evaluation. Appendix: Not identified. No dilated tubular structure or inflammatory changes in. Urinary bladder: Normal. Genitourinary structures: Uterus and adnexa appear normal. Osseous structures: No suspicious lytic or sclerotic lesions. Lymphadenopathy: No suspicious inguinal adenopathy. No iliac chain or obturator canal adenopathy. No enlarged periaortic or retrocaval adenopathy is evident. No retrocrural adenopathy. No suspicious hil ar or mediastinal adenopathy. Axillary regions are Normal. IMPRESSIONS: 1. No suspicious changes to suggest recurrent or metastatic lymphoma.
== END | disposition home or self-care (01) ==
LOC: RADPROMAIN 10:23
PROVIDERS: ATTEND Internal Medicine Hematology & Oncology
DX: C85.98 Non-Hodgkin lymphoma, unspecified, lymph nodes of multiple sites (principal)
CPT/HCPCS: 82565; 84520; 74177; J1642; Q9967 ×2

== ENCOUNTER 2022-01-10 06:24 | Day surgery (SDC) | payer MEDICARE, OTHER ==
[2022-01-07 09:33] VITALS: BMI 29.2
[~2022-01-10 06:24] MED LIST changes: +ACETAMINOPHEN TAB 500 MG TAB PO PRN; +DEXAMETHASONE SOD PHOSPHATE 4 MG/ML 1 ML VIAL IV ONE; +HEPARIN SODIUM,PORCINE/PF 5,000 UNIT/0.5 ML SYRINGE SQ PRN; +HYDROmorphone 0.5 MG/0.5 ML SYRINGE IVP PRN; +LIDOCAINE 1% (10MG/ML) FOR IV START INTRADERMA PRN; +MIDAZOLAM 2 MG/2 ML VIAL IV PRN; +ONDANSETRON 4 MG/2 ML VIAL IVP ONE
[2022-01-10 06:52] VITALS: TEMP 97
[2022-01-10] MEDS ORDERED: PROPOFOL 10 MG/ML 20 ML VIAL IV ONE (07:44)
[2022-01-10] MEDS ORDERED: KETAMINE 10 MG/ML 20 ML VIAL ONE (07:44)
[2022-01-10] MEDS ORDERED: GLYCOPYRROLATE 0.2 MG/ML 2 ML VIAL ONE (07:44)
[2022-01-10] MEDS ORDERED: MIDAZOLAM 2 MG/2 ML VIAL ONE (07:44)
[2022-01-10] MEDS ORDERED: fentaNYL (PF) 50 MCG/ML 2 ML AMP ONE (07:44)
[2022-01-10] MEDS ORDERED: LIDOCAINE 1%-EPI 1:100,000 20 ML VIAL SQ ONE (08:06)
--- NOTE | 2022-01-10 08:20 | P.GSHP ---
History of Present Illness H&P Date: 01/10/22 Chief Complaint: History of colon cancer This is a 66-year-old female with history of colon cancer. Patient presents today for removal of Port-A-Cath. 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 History of Any Multi-Drug Resistant Organisms: None Reported Past Surgical History: Appendectomy, Bariatric Surgery, Breast Surgery Additional Past Surgical History / Comment(s): SCALP CYST REMOVED. INSERTION & REMOVAL OF PORT A CATHETER. EXPLORATORY LAP WITH PARTIAL RIGHT COLECTOMY AFTER RUPTURED APPENDIX AND OMENTECTOMY TO REMOVE STAGE 2 CANCER. Gastric bypass 2004. Green field filter. Bilateral breast biopsies. Port-a-cath reinserted. Past Anesthesia/Blood Transfusion Reactions: No Reported Reaction, Family History of Problems w/ Anesthesia Additional Past Anesthesia/Blood Transfusion Reaction / Comment(s): Brother becomes violent. Past Psychological History: No Psychological Hx Reported Smoking Status: Current every day smoker Past Alcohol Use History: None Reported Additional Past Alcohol Use History / Comment(s): Smokes 5-10 cigarettes daily, Hx OF SMOKING OFF AND ON. Past Drug Use History: None Reported - Past Family History Sister(s) Family Medical History: Cancer Additional Family Medical History / Comment(s): NON HODGKINS LYMPHOMA. Father Family Medical History: Cancer Additional Family Medical History / Comment(s): LUNG CANCER. Brother(s) Family Medical History: Cancer Additional Family Medical History / Comment(s): COLON CANCER. Medications and Allergies Home Medications Medication Instructions Recorded Confirmed Type Levothyroxine Sodium [Synthroid] 175 mcg PO QAM 06/19/18 01/10/22 History Bifidobacterium Infantis [Align] 4 mg PO QAM 01/07/22 01/10/22 History Allergies Allergy/AdvReac Type Severity Reaction Status Date / Time No Known Allergies Allergy Verified 01/10/22 06:46 Surgical - Exam Vital Signs Temp Pulse Resp BP Pulse Ox 97.0 F L 64 16 118/53 98 01/10/22 06:51 01/10/22 06:51 01/10/22 06:51 01/10/22 06:51 01/10/22 06:51 - General well developed, well nourished, no distress - Eyes PERRL - ENT normal pinna - Neck no masses - Respiratory normal expansion - Cardiovascular Rhythm: regular - Abdomen Abdomen: soft, non tender Assessment and Plan Assessment: History of colon cancer. We'll remove right subclavian Port-A-Cath
--- NOTE | 2022-01-10 08:22 | P.OP ---
Date of Procedure: 01/10/22 Preoperative Diagnosis: History of colon cancer Postoperative Diagnosis: History of colon cancer Procedure(s) Performed: Removal of right subclavian Port-A-Cath Anesthesia: JEWELL Surgeon: Rolando Calvert Estimated Blood Loss (ml): 5 Pathology: none sent Condition: stable Disposition: PACU Description of Procedure: The patient's placed on the operative table in the supine position. She received IV sedation. Her right chest wall was prepped and draped usual sterile fashion. The area was anesthetized 1% local Xylocaine. Using a 15 blade skin was incised and using blunt sharp dissection with cautery the Port-A-Cath was dissected free. Port-A-Cath was removed. The was retrieved cyst. There is no bleeding seen. The skin was closed interrupted 3-0 Monocryl suture. Dermabond dressing was applied. Patient tolerated the procedure well. She was sent to recovery room in stable condition.
[2022-01-10 08:48] VITALS: BP 112/76; PULSE 68; RESP 16
== END 2022-01-10 09:05 | disposition home or self-care (01) ==
LOC: OR 06:24
PROVIDERS: ATTEND Surgery
DX: Z85.038 Personal history of other malignant neoplasm of large intestine (principal); M19.90 Unspecified osteoarthritis, unspecified site; E07.9 Disorder of thyroid, unspecified; Z85.72 Personal history of non-Hodgkin lymphomas; Z90.49 Acquired absence of other specified parts of digestive tract; Z98.84 Bariatric surgery status; F17.210 Nicotine dependence, cigarettes, uncomplicated; Z80.1 Family history of malignant neoplasm of trachea, bronchus and lung; Z80.0 Family history of malignant neoplasm of digestive organs; Z79.890 Hormone replacement therapy; Z86.010 Personal history of colon polyps
CPT/HCPCS: 36590; J2250; J1100; J0690; J2405; J3010; J2704; J1644

== ENCOUNTER → 2022-12-16 | Outpatient (CLI) | payer OTHER ==
[2022-12-16 09:09] LABS: African American GFR (CKD) 89 (>60 ml/min/1.73 sqM); Blood Urea Nitrogen 19 mg/dL (7-17); Non-African American GFR(CKD) 77 (>60 ml/min/1.73 sqM)
--- NOTE | 2022-12-16 10:29 | CT ---
EXAMINATION TYPE: CT abdomen pelvis w con DATE OF EXAM: 12/16/2022 COMPARISON: 12/15/2021. HISTORY: Monitoring for colon cancer. CT DLP: 1294.20 mGycm Automated exposure control for dose reduction was used. TECHNIQUE: Helical acquisition of images was performed from the lung bases through the pelvis. CONTRAST: FINDINGS: LOWER CHEST : The visualized lung bases are clear. There are no pleural or pericardial effusions. ABDOMEN: Liver and Biliary system: Normal. Adrenal glands: Normal. Kidneys and ureters: Normal. Spleen: There is of splenic scarring are noted and unchanged.. Pancreas: Normal. Gallbladder: Normal. Lymph nodes, Peritoneum and mesentery: There is no mesenteric or retroperitoneal lymphadenopathy. Gastrointestinal tract: There are no dilated loops of bowel or free intraperitoneal air. Aorta/IVC: There is moderate vascular calcification throughout the abdominal aorta without evidence of aneurysmal dilation or dissection.. IVC filter is present.. Abdominal wall: Prior surgical changes are seen within the abdominal wall.. PELVIS: Fluid: There is no free fluid in the pelvis. Lymph Nodes: There is no pelvic or inguinal lymphadenopathy.. Urinary bladder: Normal. BONES: There is a grade 2 anterolisthesis of L5 on S1 with bilateral pars interarticularis defects a t L5. There are no acute osseous abnormalities. ADDITIONAL SIGNIFICANT FINDINGS: None. IMPRESSION: No definitive evidence of residual, recurrent or metastatic disease.
== END | disposition home or self-care (01) ==
LOC: RADCTMAIN 08:29
PROVIDERS: ATTEND Internal Medicine Hematology & Oncology
DX: C18.2 Malignant neoplasm of ascending colon (principal); C85.98 Non-Hodgkin lymphoma, unspecified, lymph nodes of multiple sites; E03.9 Hypothyroidism, unspecified; D50.9 Iron deficiency anemia, unspecified
CPT/HCPCS: 82565; 84520; 74177; 36415; Q9967

== ENCOUNTER → 2023-03-14 | Outpatient (CLI) | payer OTHER ==
--- NOTE | 2023-03-16 22:31 | MM ---
Reason for Exam: Screening (asymptomatic). Patient History: Menarche at age 15. First Full-Term at age 25. Postmenopausal. Maternal grandmother had breast cancer. Paternal aunt had breast cancer. Risk Values: Jie 5 year model risk: 1.4%. NCI Lifetime model risk: 4.9%. Tissue Density: There are scattered fibroglandular densities. Findings: Analyzed By CAD. There are bilateral areas of focal asymmetry demonstrated, 2 on the right and one on the left for which further evaluation is recommended especially as no priors are available for comparison purposes. Otherwise, no suspicious microcalcification or other discrete abnormality is seen. Overall Assessment: Incomplete: need additional imaging evaluation, BI-RAD 0 Management: Special View Mammogram of both breasts. Diagnostic Breast Ultrasound of both breasts. Additional views to include spot 3-D CC, spot 3-D MLO, and 3-D lateral views of the bilateral breasts. 2 areas on the right and one area on the left. Targeted ultrasound of either breast for any persistent abnormality.. [facility] will attempt to contact patient to return for supplemental views and ultrasound if indicated. Electronically signed and approved by: Kera Irby M.D. Radiologist
== END | disposition home or self-care (01) ==
LOC: RADMAMWWP 16:09
PROVIDERS: ATTEND Family Medicine
DX: Z12.31 Encounter for screening mammogram for malignant neoplasm of breast (principal); Z78.0 Asymptomatic menopausal state; Z80.3 Family history of malignant neoplasm of breast
CPT/HCPCS: 77067

== ENCOUNTER → 2023-04-04 | Outpatient (CLI) | payer OTHER ==
--- NOTE | 2023-04-04 15:07 | MM ---
Reason for Exam: Additional evaluation requested from abnormal screening. Last screening mammogram was performed less than 1 month ago. Patient History: Menarche at age 15. First Full-Term at age 25. Postmenopausal. Maternal grandmother had breast cancer. Paternal aunt had breast cancer. Risk Values: Jie 5 year model risk: 1.4%. NCI Lifetime model risk: 4.9%. Prior Study Comparison: 03/14/2023 Bilateral MG screening mammo w CAD, [facility]. Tissue Density: The breast tissue is heterogeneously dense. This may lower the sensitivity of mammography. Findings: Analyzed By CAD. Pattern appears stable. Comparison images are now available dated 10/02/2015. Findings appears stable from comparison. No new findings are evident. No suspicious groups of microcalcifications, spiculated or lobular masses, architectural distortion or other secondary signs of malignancy are mammographically apparent. Overall Assessment: Benign, BI-RAD 2 Management: Screening Mammogram of both breasts in 1 year. A negative mammogram report should not preclude additional follow up of suspicious palpable abnormalities. Patient should continue monthly self breast exam. A clinical breast exam by your physician is recommended on an annual basis and results should be correlated with mammographic findings. Electronically signed and approved by: Doron Mello D.O. Radiologis
== END | disposition home or self-care (01) ==
LOC: RADMAMWWP 14:25
PROVIDERS: ATTEND Family Medicine
DX: R92.333 Mammographic heterogeneous density, bilateral breasts (principal); Z80.3 Family history of malignant neoplasm of breast; Z78.0 Asymptomatic menopausal state
CPT/HCPCS: 77062; 77066

== ENCOUNTER → 2023-12-28 | Outpatient (CLI) | payer OTHER, MEDICARE ==
--- NOTE | 2023-12-28 12:58 | XR ---
EXAMINATION TYPE: XR Hip Complete LT DATE OF EXAM: 12/28/2023 12:47 PM INDICATION: Patient age:Female; 68 years old; Reason for study: M16.12 Unilateral primary osteoarthritis; PHH. COMPARISON: CT abdomen and pelvis 12/16/2022 TECHNIQUE: The left hip was examined in the frontal and lateral projections . FINDINGS: No evidence of any acute osseous pathology, joint dislocation, or soft tissue swelling. The re is superior and medial joint space narrowing with [id number] contact involving the left hip. Mar ginal spurring. 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 Additional postsurgical changes of the anterior abdominal wall with surgical cisco. IMPRESSION: 1. No acute osseous pathology. 2. Advanced osteoarthritic changes of the left hip. 3. 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 Correlate for femoroacetabular impingement syndrom e. [facility], , 12/28/2023 12:56 PM
== END | disposition home or self-care (01) ==
LOC: RADXRMAIN 12:30
PROVIDERS: ATTEND Family Medicine
DX: M16.12 Unilateral primary osteoarthritis, left hip (principal)
CPT/HCPCS: 73502

== ENCOUNTER 2024-01-22 12:05 | Day surgery (SDC) | payer MEDICARE, OTHER ==
[2024-01-18 11:37] VITALS: BMI 29.0
[2024-01-22 12:37] VITALS: RESP 16; TEMP 97.8
[2024-01-22] MEDS: IV FLUID CONTINUATION 1,000 ML IV ONE (12:38)
[2024-01-22] MEDS: LACTATED RINGERS 1,000 ML IV SCH (12:41)
[2024-01-22] MEDS ORDERED: PROPOFOL 10 MG/ML 20 ML VIAL IV ONE (14:24)
--- NOTE | 2024-01-22 14:32 | P.GSHP ---
History of Present Illness H&P Date: 01/22/24 Chief Complaint: History of colon cancer This is a 68-year-old female with previous history of colon cancer. Patient presents today for colonoscopy. Denies any significant GI complaints. Past Medical History Past Medical History: Blood Disorder, Cancer, Sleep Apnea/CPAP/BIPAP, Thyroid Disorder Additional Past Medical History / Comment(s): STAGE 2 BOWEL CANCER DX 07/12/18,remission HAD CHEMO, last TREATMENT Nov 2018. Non-Hodgkins Lymphoma. Hx Anemia, currently resolved. "Hx Sleep Apnea, not currently." History of Any Multi-Drug Resistant Organisms: None Reported Past Surgical History: Appendectomy, Bariatric Surgery, Breast Surgery, Tonsillectomy Additional Past Surgical History / Comment(s): SCALP CYST REMOVED. INSERTION OF AND LATER REMOVAL OF PORT A CATHETER. 06/20/18, EXPLORATORY LAP WITH PARTIAL RIGHT COLECTOMY AFTER RUPTURED APPENDIX AND OMENTECTOMY TO REMOVE STAGE 2 CANCER. Gastric bypass 2004. Green field filter. Bilateral breast biopsies. colonoscopy Past Anesthesia/Blood Transfusion Reactions: No Reported Reaction Additional Past Anesthesia/Blood Transfusion Reaction / Comment(s): Brother becomes violent. no blood transfusion reaction Smoking Status: Current every day smoker - Past Family History Sister(s) Family Medical History: Cancer Additional Family Medical History / Comment(s): NON HODGKINS LYMPHOMA. Father Family Medical History: Cancer Additional Family Medical History / Comment(s): LUNG CANCER. Brother(s) Family Medical History: Cancer Additional Family Medical History / Comment(s): COLON CANCER. Medications and Allergies Home Medications Medication Instructions Recorded Confirmed Type Levothyroxine Sodium [Synthroid] 175 mcg PO QAM 06/19/18 01/22/24 History Bifidobacterium Infantis [Align] 4 mg PO QAM 01/07/22 01/22/24 History Acetaminophen Tab [Tylenol] 650 mg PO Q6H #30 tab 01/10/22 01/22/24 Rx Ibuprofen [Motrin] 600 mg PO Q6HR PRN #40 tab 01/10/22 01/22/24 Rx Acyclovir 800 mg PO DIRECTED 01/18/24 01/22/24 History Allergies Allergy/AdvReac Type Severity Reaction Status Date / Time No Known Allergies Allergy Verified 01/22/24 12:39 Surgical - Exam Vital Signs Temp Pulse Resp BP Pulse Ox 97.8 F 77 16 116/58 95 01/22/24 12:35 01/22/24 12:35 01/22/24 12:35 01/22/24 12:35 01/22/24 12:35 - General well developed, well nourished, no distress - Eyes PERRL - ENT normal pinna - Neck no masses - Respiratory normal expansion - Cardiovascular Rhythm: regular - Abdomen Abdomen: soft, non tender Assessment and Plan Assessment: History of colon cancer. Will perform colonoscopy.
--- NOTE | 2024-01-22 14:46 | P.OP ---
Date of Procedure: 01/22/24 Preoperative Diagnosis: History of colon cancer Postoperative Diagnosis: Normal colon status post right colectomy Procedure(s) Performed: Colonoscopy Anesthesia: MAC Surgeon: Rolando Calvert Pathology: none sent Condition: stable Disposition: PACU Description of Procedure: The patient is placed on the endoscopy table in the lateral position. She received IV sedation. Digital rectal exam was performed which revealed no abnormalities. Flexible colonoscope was then placed patient anus and passed throughout the entire colon. Patient appears right colectomy. The ileal colonic anastomosis was visualized. The transverse colon appeared normal. The descending colon appeared normal. The sigmoid colon appeared normal. Scope was back to the rectum this appeared normal. Scope withdrawn for the patient.
[2024-01-22 15:06] VITALS: BP 108/54; PULSE 66
== END 2024-01-22 15:24 | disposition home or self-care (01) ==
LOC: ORWHC2ENDO 12:05
PROVIDERS: ATTEND Surgery

== ENCOUNTER → 2024-02-26 | Outpatient (CLI) | payer OTHER, MEDICARE ==
[2024-02-26 14:41] LABS: INR 0.9 (<1.2); Partial Thromboplastin Time 23.9 sec (22.0-30.0); Prothrombin Time 9.9 sec (10.0-12.5)
[2024-02-26 20:38] LABS: HCT 41.8 % (37.2-46.3); HGB 13.2 g/dL (12.0-15.0); MCH 26.6 pg (27.0-32.0); MCHC 31.6 g/dL (32.0-37.0); MCV 84.1 FL (80.0-97.0); Mean Platelet Volume 9.9 FL (9.5-12.2); NRBC Per 100 WBC 0 X 10*3/uL (0.00-0.01); Platelet Count 336 X 10*3/uL (140-440); RBC 4.97 X 10*6/uL (4.10-5.20); RDW 15.2 % (11.5-14.5)
[2024-02-26 21:22] LABS: ALT 16 U/L (8-44); AST 20 U/L (13-35); Albumin 4.6 g/dL (3.8-4.9); Albumin/Globulin Ratio 1.64 Ratio (1.60-3.17); Alkaline Phosphatase 100 U/L (41-126); Calcium 9.5 mg/dL (8.7-10.3); Carbon Dioxide 22.3 mmol/L (21.6-31.8); Chloride 108 mmol/L (96-109); Globulin 2.8 g/dL (1.6-3.3); Glucose 90 mg/dL (70-110); Potassium 4.3 mmol/L (3.5-5.5); Sodium 141 mmol/L (135-145); Total Bilirubin 0.2 mg/dL (0.3-1.2); Total Protein 7.4 g/dL (6.2-8.2)
== END | disposition home or self-care (01) ==
LOC: LABPAT 13:58
PROVIDERS: ATTEND Orthopaedic Surgery
DX: Z01.818 Encounter for other preprocedural examination (principal); E11.9 Type 2 diabetes mellitus without complications; M16.12 Unilateral primary osteoarthritis, left hip; Z22.322 Carrier or suspected carrier of Methicillin resistant Staphylococcus aureus
CPT/HCPCS: 80053; 80323; 83036; 85027; 85610; 85730; 86850; 86900; 86901; 87070; 93005

== ENCOUNTER → 2024-03-07 | Outpatient (CLI) | payer OTHER ==
--- NOTE | 2024-03-07 12:57 | CA ---
Transthoracic Echo Report Name: Shantel Acosta Age: 68 Gender: F : 1955 Exam Date: 03/07/2024 12:15 Exam Location: [facility] Ht (in): 66 Wt (lb): 180 Ordering Physician: Patrick King DO Attending/Referring Phys: Rocky Rush MD Supervisor Coating Amirah Lindsay RDCS Procedure CPT: Indications: Z01.818 Cardiac Hx: Technical Quality: Fair Contrast 1: Total Dose (mL): Contrast 2: Total Dose (mL): MEASUREMENTS (Male / Female) Normal Values 2D ECHO LV Diastolic Diameter PLAX 4.5 cm 4.2 - 5.9 / 3.9 - 5.3 cm LV Systolic Diameter PLAX 2.2 cm IVS Diastolic Thickness 1.0 cm 0.6 - 1.0 / 0.6 - 0.9 cm LVPW Diastolic Thickness 0.7 cm 0.6 - 1.0 / 0.6 - 0.9 cm LV Relative Wall Thickness 0.4 RV Internal Dim ED PLAX 1.7 cm LA Systolic Diameter LX 3.3 cm 3.0 - 4.0 / 2.7 - 3.8 cm LV Diastolic Volume MOD BP 61.7 cm??? 67 - 155 / 56 - 104 cm??? LV Systolic Volume MOD BP 24.3 cm??? - 58 / 19 - 49 cm??? LV Ejection Fraction MOD BP 60.6 % >= 55 % LV Cardiac Index MOD BP 1025.2 cm???/min???m??? LV Diastolic Volume MOD 4C 56.4 cm??? LV Systolic Volume MOD 4C 22.1 cm??? LV Ejection Fraction MOD 4C 60.8 % LV Cardiac Index MOD 4C 938.5 cm???/min???m??? LV Diastolic Length 4C 6.6 cm LV Systolic Length 4C 5.6 cm LV Diastolic Volume MOD 2C 68.0 cm??? LV Systolic Volume MOD 2C 27.4 cm??? LV Ejection Fraction MOD 2C 59.7 % LV Cardiac Index MOD 2C 1111.6 cm???/min???m??? LV Diastolic Length 2C 6.6 cm LV Systolic Length 2C 5.6 cm LA Volume 49.8 cm??? 18 - 58 / 22 - 52 cm??? LA Volume Index 25.2 cm???/m??? 16 - 28 cm???/m??? M-MODE Aortic Root Diameter MM 3.0 cm LA Systolic Diameter MM 2.6 cm LA Ao Ratio MM 0.9 AV Cusp Separation MM 1.7 cm DOPPLER AI Peak Velocity 309.2 cm/s AI Peak Gradient 38.2 mmHg AI Pressure Half Time 1198.7 ms MV Area PHT 2.8 cm??? Mitral E Point Velocity 77.5 cm/s Mitral A Point Velocity 88.6 cm/s Mitral E to A Ratio 0.9 MV Deceleration Time 274.6 ms TR Peak Velocity 212.6 cm/s TR Peak Gradient 18.1 mmHg Right Ventricular Systolic Press 23.1 mmHg FINDINGS Left Ventricle Left ventricular ejection fraction is estimated at 55-60 %. Left ventricular cavity size normal. Normal left ventricular wall motion. Left ventricular wall thickness normal. Right Ventricle Normal right ventricular size and function. Right ventricular systolic pressure within normal limits. Right Atrium Normal right atrial size. No right atrial thrombus or mass seen. Left Atrium Normal left atrial size. No left atrial thrombus or mass present. Mitral Valve Structurally normal mitral valve. No evidence for mitral valve prolapse. No mitral stenosis. Trace mitral regurgitation. Aortic Valve Trileaflet aortic valve. Aortic valve sclerosis. Mild aortic regurgitation. Tricuspid Valve Structurally normal tricuspid valve. Trace to mild tricuspid regurgitation. Pulmonic Valve Pulmonic valve not well visualized. No pulmonic regurgitation. Pericardium No pericardial or pleural effusion. Aorta Normal size aortic root and proximal ascending aorta. CONCLUSIONS Normal LV size and systolic function. LVEF 55 to 60% No obvious regional wall motion abnormality Normal RV size and systolic function Mild aortic regurgitation, mild tricuspid regurgitation RVSP is normal and estimated less than 25 mmHg Previewed by: Dr Olivier Abel (Electronically Signed) Final Date: 07 March 2024 12:56
== END | disposition home or self-care (01) ==
LOC: RADECHMAIN 12:04
PROVIDERS: ATTEND Family Medicine
DX: Z01.818 Encounter for other preprocedural examination (principal); I08.2 Rheumatic disorders of both aortic and tricuspid valves
CPT/HCPCS: 93306

== ENCOUNTER 2024-03-08 13:16 | Day surgery (SDC) | payer MEDICARE, OTHER ==
[~2024-03-08 13:16] MED LIST changes: -ACETAMINOPHEN TAB 500 MG TAB PO PRN; -DEXAMETHASONE SOD PHOSPHATE 4 MG/ML 1 ML VIAL IV ONE; -HEPARIN SODIUM,PORCINE/PF 5,000 UNIT/0.5 ML SYRINGE SQ PRN; -HYDROmorphone 0.5 MG/0.5 ML SYRINGE IVP PRN; -LACTATED RINGERS 1,000 ML IV SCH; -MIDAZOLAM 2 MG/2 ML VIAL IV PRN; -ONDANSETRON 4 MG/2 ML VIAL IVP ONE; +TRANEXAMIC 1,000 MG/100ML-NACL 1,000 MG in SALINE 1 100ML.BAG IV PRN; +TRANEXAMIC 1,000 MG/100ML-NACL 1,000 MG in SALINE 1 100ML.BAG IVPB PRN
[2024-03-08] MEDS: IV FLUID CONTINUATION 1,000 ML IV ONE (13:39)
[2024-03-08] MEDS: LACTATED RINGERS 1,000 ML IV SCH (14:15)
[2024-03-08] MEDS: ACETAMINOPHEN TAB 500 MG TAB PO PRN (14:15)
[2024-03-08] MEDS: oxyCODONE ER 10 MG TAB.ER.12H PO PRN (14:15)
[2024-03-08] MEDS: DOCUSATE 100 MG CAP PO PRN (14:15)
[2024-03-08] MEDS: DEXAMETHASONE SOD PHOSPHATE 10 MG/ML 1 ML VIAL IV PRN (14:19)
[2024-03-08] MEDS: FAMOTIDINE 20 MG/2 ML VIAL IVP PRN (14:19)
[2024-03-08] MEDS: ONDANSETRON 4 MG/2 ML VIAL IVP PRN (14:19)
[2024-03-08] MEDS: KETOROLAC 15 MG/ML 1 ML VIAL IVP PRN (14:19)
[2024-03-08] MEDS: MIDAZOLAM 2 MG/2 ML VIAL IV STA (14:27)
[2024-03-08] MEDS ORDERED: PROPOFOL 10 MG/ML 20 ML VIAL IV ONE (14:54)
[2024-03-08] MEDS ORDERED: GLYCOPYRROLATE 0.2 MG/ML 2 ML VIAL ONE (14:54)
[2024-03-08] MEDS ORDERED: fentaNYL (PF) 50 MCG/ML 2 ML AMP ONE (14:54)
[2024-03-08] MEDS ORDERED: SUCCINYLCHOLINE CHLORIDE 200 MG/10 ML VIAL IV ONE (14:54)
[2024-03-08] MEDS ORDERED: MIDAZOLAM 2 MG/2 ML VIAL ONE (14:54)
[2024-03-08] MEDS ORDERED: ROPIVACAINE 5 MG/ML 30 ML VIAL ONE (14:54)
[2024-03-08] MEDS ORDERED: ROCURONIUM 10 MG/ML (5 ML VIAL) IV ONE (14:54)
[2024-03-08] MEDS ORDERED: LIDOCAINE 1% INJ 10MG/ML (20 ML MDV) ONE (14:54)
[2024-03-08] MEDS ORDERED: TRANEXAMIC 1,000 MG/100ML-NACL PREMIX BAG ONE (14:54)
[2024-03-08] MEDS ORDERED: DEXAMETHASONE SOD PHOSPHATE 4 MG/ML 1 ML VIAL ONE (14:54)
[2024-03-08] MEDS ORDERED: NEOSTIGMINE 1 MG/ML 10 ML VIAL ONE (14:54)
[2024-03-08] MEDS: ROPIVACAINE/EPI/CLONIDINE/KET 50 ML SYRINGE MISCELLANE PRN (15:28)
--- NOTE | 2024-03-08 16:58 | P.OP ---
Date of Procedure: 03/08/24 Preoperative Diagnosis: 1. Severe left hip osteoarthritis 2. COPD 3. History of cigarette smoking, quit prior to surgery 4. History of colon cancer Postoperative Diagnosis: Same Procedure(s) Performed: Left direct anterior total hip arthroplasty Implants: 1. [place] Trident II Acetabular Cup, Size #56 2. July Accolade C Size #5 Femoral Stem, Standard Offset 3. Biolox delta femoral head, 36 mm, +0 mm neck Anesthesia: GETA, regional Surgeon: Rocky Rush [employer] Clerk #1: Sj Rader Estimated Blood Loss (ml): 300 IV fluids (ml): 800 Pathology: none sent Condition: stable Disposition: PACU Indications for Procedure: The patient is a very pleasant 68-year-old female with multiple medical problems including colon cancer, COPD, and formerly a smoker. She presented to my office with severe left hip arthritis. She had failed nonsurgical treatment and requested proceeding with surgery. I requested that she quit smoking prior to surgery which she was able to do. She understands the ramifications if she resume smoking in the perioperative period including infection and delayed wound healing. I had a long discussion with the patient in the office on the potential risks and complications of an elective total hip replacement through a direct anterior approach. Risks discussed include, but are certainly not limited to, risks from anesthesia, superficial infection requiring local wound care or antibiotics, deep maria elena-prosthetic joint infection and the treatment required to eradicate infection, intraoperative fracture, postoperative periprosthetic fracture, damage to local blood vessels or nerves particularly the lateral femoral cutaneous nerve, delayed wound healing requiring local wound care or possibly surgical debridement, hip dislocation, leg length discrepancy, soft tissue irritation around the total hip implant such as iliopsoas tendinitis or trochanteric bursitis, wear and osteolysis from the implants, squeaking or audible noises, groin pain, thigh pain, heterotopic ossification, stiffness, aseptic loosening of the implants, dissatisfaction with surgical outcome, need for revision surgery, DVT, PE, swelling of the operative extremity, acute coronary event, stroke, failure to thrive, and possibly loss of life or limb. The patient understands that while these are the most common complications after an elective hip replacement there are certainly other less common complications possible. They were given ample time to ask questions regarding the potential complications of a hip replacement. Following our discussion the patient provided their verbal and written consent to go forward with an elective total hip replacement. Operative Findings: Severe left hip osteoarthritis. Description of Procedure: The patient was identified in the preoperative holding area and the correct hip was marked with my initials. I reviewed the procedure and consent with the patient. All of their questions were answered. The patient was then brought back into the operating room by anesthesia. While on the [facility] anesthesia was administered by the anesthesia team. Preoperative antibiotics and tranexamic acid were also given. After the patient was under anesthesia I examined their ankles to determine their preoperative leg length discrepancy. The skin over the anterior aspect of the hip was shaved to remove hair over the site of planned incision. Both feet and ankles were padded with webril and boots for the [place] were applied. The patient was then carefully transferred onto the [place] table. A perineal post was immediately placed. The arms were placed on arm holders and were well-padded. Both boots were secured to the spars on the [place] table. The patient was positioned so that the pelvis was centered over the post. Nonsterile drapes were applied. A timeout was performed identifying the correct patient, operative extremity, and procedure. At this point fluoroscopy was brought in to take preoperative images of the pelvis and operative hip. Using the standing AP pelvis from the office as a template, a comparable image was obtained with fluoroscopy. A metallic bar was used to create a bi-ischial line for use as a reference to leg length adjustments during the procedure. Global offset was also measured on both the operative and nonoperative leg. Fluoroscopy was then brought out and a pre-scrub using a chlorhexidine scrub brush was performed. The operative limb was then prepped and draped in the standard sterile fashion. An anterior longitudinal incision was made lateral and distal to the ASIS. The skin and subcutaneous tissues were incised sharply. The underlying tensor fascia was identified and incised in its midportion. The fascia was dissected free from the underlying muscle and the muscle belly was retracted. A blunt tipped cobra retractor was placed over the superior neck under the muscle fibers of the gluteus minimus. The deep enveloping fascia of the tensor was incised. The anterior leash of vessels were then identified and cauterized. The fascia between the rectus and the capsule was then incised and the pre-capsular fat was excised. A second Cobra was placed inferior to the neck. The interval between the rectus and iliocapsularis and the hip capsule was developed and a retractor was placed carefully over the anterior rim of the acetabulum. A T-shaped anterior capsulotomy was performed. The superior capsular leaflet was left in place in the inferior capsular flap was excised. The Cobra retractors were placed intracapsularly. We then made a femoral neck osteotomy according to preoperative and intraoperative templating and confirmed the level of the osteotomy using fluoroscopic imaging. The femoral head was removed, passed off to the back table, and sized. The superior capsular flap was excised. Retractors were placed circumferentially exposing the acetabulum. We then circumferentially debrided the acetabulum free of labrum and osteophytes. The pulvinar was removed to fully visualize the cotyloid fossa. We then sequentially reamed to achieve peripheral fit and excellent bleeding subchondral bone. The socket was thoroughly irrigated. The acetabular component was impacted into the appropriate position using fluoroscopy to guide version, inclination, and depth of insertion taking care to have a comparable image of the AP pelvis to the standing image taken in the office. An excellent press-fit was achieved and final position was confirmed using fluoroscopy. The press fit was augmented with bony cancellus dome screws. The liner was then impacted into the socket. Attention was then turned to the femur. The remnant dorsal lateral capsule was excised. The short external rotators were visible and protected. A bone hook was used to confirm appropriate translation of the trochanter away from the acetabulum. The leg was then extended and adducted and the bone hook was used to elevate the femur for broaching. On inspection of the patient's proximal femur, they appeared to have poor bone quality so I elected to proceed with cemented fixation of the femoral component. A box osteotome and blunt tipped canal sound was then utilized to gain access to the femoral canal. We then sequentially broached the femur in appropriate anteversion until torsional stability was achieved and the implant was felt to have reached the appropriate size to allow trialing. The neck cut was brought flush to the trial broach with a calcar planar. A trial neck and head were then placed onto the broach and the hip was atraumatically reduced under direct visualization. External rotation to 90 was performed to assess stability. Fluoroscopy was brought in. An AP and lateral fluoroscopic image of the proximal femur was obtained to assess position and fill of the trial broach. An AP of the pelvis was then obtained and matched to the preoperative image taken. A bi-ischial bar was then placed and measurements were taken to assess changes in length and offset. The hip was then carefully dislocated, the proximal femur was exposed, and the trial implants were removed. The proximal femur was then prepared for cementing. The canal was thoroughly irrigated with pulsatile lavage to remove blood and marrow contents. A cement restrictor was placed to a depth just distal to the tip of the final implant. Epinephrine-soaked gauze was then packed into the proximal femur. 2 bags of cement were then mixed using a centrifuge and placed into a cement gun. Anesthesia was notified that cementing was about to commence to make sure the patient was appropriately ventilated and hydrated. Once the cement had reached appropriate consistency, the cement gun was used to fill the canal in a retrograde fashion starting at the restrictor. Cement was then pressurized into the canal with a blue tipped supervisor of instruction. The stem was then carefully introduced into the cement taking care to guide the implant into appr opriate version. The stem was held in position until the cement had fully set. All extra cement was removed while the cement was hardening. The trunnion was cleansed and the final head was tapped into place to engage the Pickard taper. The acetabulum was irrigated and visualized to be free of debris. The hip was carefully reduced. Stability was checked clinically with external rotation to 90 and there was no evidence of instability. Final fluoroscopic images were taken. The wound was then thoroughly irrigated and soaked with a dilute Betadine rinse for 3 minutes. 3 L of sterile saline was irrigated through the wound using pulsatile lavage. Local anesthetic cocktail was injected into the soft tissues around the surgical field. The wound was then closed in layers. A sterile dressing was placed over the surgical incision. The drapes were taken down and the patient was carefully transferred off of the [place] table. Following removal of the boots the leg lengths felt acceptable. The patient was then taken to recovery room having tolerated the procedure well. Sj Rader PA-C was required as a skilled physical therapy assistant due to the complexity of surgery for patient positioning, draping, exposure, retraction, closure of wound, and application of dressing. PLAN: The patient can weight-bear as tolerated on the operative extremity. 2 doses of postoperative antibiotics. DVT prophylaxis with aspirin 81 mg twice a day based on preoperative risk stratification. Physical therapy for gait training.
--- NOTE | 2024-03-08 17:07 | FL ---
EXAMINATION TYPE: FL guidance operating room, XR Hip Limited LT DATE OF EXAM: 03/08/2024 4:59 PM COMPARISON: Pre Operative Images if available both CT/MRI or plain film CLINICAL INDICATION: Female, 68 years old with history of Left Hip-Ant; TECHNIQUE: FL guidance operating room, XR Hip Limited LT, multiple fluoroscopic images provided for p rocedure. Total fluoroscopy time: 40.5 seconds Total submitted images to PACS: 6 DAP: 1.3777 mGym2 Gycm2 uGym2 cGycm2 or equivalent. FINDINGS: Fluoroscopic images during internal fixation/arthroplasty demonstrate hardware in appropriate positio n. Hardware appears intact. No immediate complication identified. IMPRESSION: 1. No evidence for intraoperative complication. 2. Please see the operative/procedural note for further details. [facility], , 03/08/2024 5:05 PM
[2024-03-08] MEDS ORDERED: HYDROcodone/APAP 5-325MG 1 EACH TAB PO PRN (17:09)
[2024-03-08] MEDS ORDERED: MAGNESIUM HYDROXIDE 2,400 MG/30 ML CUP PO PRN (17:09)
[2024-03-08] MEDS ORDERED: hydrOXYzine pamoate 25 MG CAP PO PRN (17:09)
[2024-03-08] MEDS ORDERED: HYDROmorphone 0.5 MG/0.5 ML SYRINGE IVP PRN ×3 (17:09)
[2024-03-08] MEDS ORDERED: NALOXONE 0.4 MG/ML 1 ML VIAL IV PRN (17:09)
[2024-03-08] MEDS: LACTATED RINGERS 1,000 ML IV ONE (17:10)
[2024-03-08] MEDS ORDERED: ONDANSETRON ODT 4 MG TAB PO PRN (17:14)
[2024-03-08] MEDS: HYDROmorphone 0.5 MG/0.5 ML SYRINGE IVP PRN (17:18)
[2024-03-08] MEDS: SODIUM CHLORIDE 0.9% 1,000 ML IV SCH (18:48)
[2024-03-08] MEDS: ASPIRIN 81 MG PO SCH (20:57)
[2024-03-08] MEDS: HYDROcodone/APAP 10-325MG 1 EACH TAB PO PRN (20:57)
[2024-03-08] MEDS: SENNOSIDES-DOCUSATE SODIUM 1 EACH TAB PO SCH (20:57)
[2024-03-09 01:27] VITALS: RESP 16
[2024-03-09] MEDS: ACETAMINOPHEN TAB 325 MG TAB PO PRN (01:33)
--- NOTE | 2024-03-09 07:43 | P.DS ---
Providers Date of admission: 03/08/2024 Attending physician: Rocky Rush Consults: 03/08/24 17:09 Consult Physician Routine Consulting Provider: Malick Lujan Consult Reason/Comments: Postop medical management Do you want consulting provider notified?: Yes Primary care physician: Patrick Fernando [place] [facility] Course: The patient is a very pleasant 68-year-old female who is admitted under my care yesterday. She underwent uncomplicated total hip replacement. On surgery she was transferred to the orthopedic floor. She received 2 doses of postoperative antibiotics. I saw the patient on postoperative day #1. He is doing well. Her dressing was intact. Her thigh was mildly swollen. Femoral nerve function was intact. She was able to actively plantarflex and dorsiflex her ankle and her toes. Sharp with physical therapy and did well. She was ultimately cleared for discharge home. Patient Condition at Discharge: Good Plan - Discharge Summary Discharge Rx Participant: Yes New Discharge Prescriptions: New Ondansetron [Zofran] 4 mg PO Q6HR PRN #30 tab PRN Reason: Nausea Aspirin 81 mg PO BID #60 tab Omeprazole 20 mg PO DAILY #30 tab Sennosides-Docusate Sodium [Senokot-S] 1 tab PO BID PRN #60 tablet PRN Reason: Constipation Diclofenac Sodium [Voltaren] 75 mg PO BID #60 tab HYDROcodone/APAP 10-325MG [Vina 10-325] 1 tab PO Q6HR PRN #24 tab PRN Reason: Pain No Action Levothyroxine Sodium [Synthroid] 175 mcg PO QAM Bifidobacterium Infantis [Align] 4 mg PO QAM Acyclovir 800 mg PO DIRECTED PRN PRN Reason: Cold Sores Alendronate Sodium [Fosamax] 70 mg PO SA Acetaminophen Tab [Tylenol] 650 mg PO Q6H #30 tab Discharge Medication List Levothyroxine Sodium [Synthroid] 175 mcg PO QAM 06/19/18 [History] Bifidobacterium Infantis [Align] 4 mg PO QAM 01/07/22 [History] Acetaminophen Tab [Tylenol] 650 mg PO Q6H #30 tab 01/10/22 [Rx] Acyclovir 800 mg PO DIRECTED PRN 01/18/24 [History] Alendronate Sodium [Fosamax] 70 mg PO SA 03/05/24 [History] Aspirin 81 mg PO BID #60 tab 03/08/24 [Rx] Diclofenac Sodium [Voltaren] 75 mg PO BID #60 tab 03/08/24 [Rx] Omeprazole 20 mg PO DAILY #30 tab 03/08/24 [Rx] Ondansetron [Zofran] 4 mg PO Q6HR PRN #30 tab 03/08/24 [Rx] Sennosides-Docusate Sodium [Senokot-S] 1 tab PO BID PRN #60 tablet 03/08/24 [Rx] HYDROcodone/APAP 10-325MG [Vina 10-325] 1 tab PO Q6HR PRN #24 tab 03/09/24 [Rx] Follow up Appointment(s)/Referral(s): Rocky Rush MD [Medical Doctor] - 2 Weeks Activity/Diet/Wound Care/Special Instructions: 1. Weight-bear as tolerated on your operative extremity unless instructed oth erwise. Use a walker or other assistive device to ambulate. 2. Leave surgical dressing in place. If your dressing becomes saturated with blood, there is drainage, or the dressing becomes loose please contact the office. 3. It is okay to shower with your surgical dressing, but do not submerge in water (no hot tubs, bath's, swimming etc.) 4. Take your blood clot prevention medication as prescribed (aspirin, Eliquis, Xarelto, and Plavix are commonly prescribed medications for blood clot prevention) 5. While taking Vina or Percocet for pain take a stool softener (Ex: Colace) and drink lots of water. 6. Keep all follow-up appointments as scheduled. You will usually be seen in 1-2 weeks following surgery. 7. Please contact the office with any questions or concerns [phone] Discharge Disposition: HOME WITH HOME HEALTH SERVICES
[2024-03-09 09:04] VITALS: BP 104/65; PULSE 65; TEMP 98.5
[2024-03-09] MEDS: FAMOTIDINE 20 MG TAB PO SCH (09:08)
[2024-03-09 09:44] LABS: Basophils # (A) 0.02 X 10*3/uL (0.00-0.10); Basophils % (A) 0.2 %; Eosinophils # (A) 0 X 10*3/uL (0.04-0.35); Eosinophils % (A) 0 %; HCT 30.8 % (37.2-46.3); HGB 9.8 g/dL (12.0-15.0); Lymphocytes # (A) 0.78 X 10*3/uL (0.90-5.00); Lymphocytes % (A) 6.1 %; MCH 26.9 pg (27.0-32.0); MCHC 31.8 g/dL (32.0-37.0); MCV 84.6 FL (80.0-97.0); Mean Platelet Volume 10.5 FL (9.5-12.2); Monocytes # (A) 0.84 X 10*3/uL (0.20-1.00); Monocytes % (A) 6.6 %; NRBC Per 100 WBC 0 X 10*3/uL (0.00-0.01); Neutrophils # (A) 11.09 X 10*3/uL (1.80-7.70); Neutrophils % (A) 86.6 %; Platelet Count 263 X 10*3/uL (140-440); RBC 3.64 X 10*6/uL (4.10-5.20); WBC 12.79 X 10*3/uL (4.50-10.00)
--- NOTE | 2024-03-09 13:27 | P.CONS ---
History of Present Illness - Reason for Consult Consult date: 03/09/24 Medical management - History of Present Illness History of present illness; patient is a 68-year-old lady with past medical history significant for hypothyroidism, osteoarthritis who presented to the hospital for elective left hip arthroplasty. Patient has been following up outpatient with orthopedics for severe left hip pain, patient had failed nonsurgical treatment, decided to proceed with left total hip arthroplasty for which patient presented the hospital on 03/08, postoperatively internal medicine team were consulted REVIEW OF SYSTEMS: CONSTITUTIONAL: No fever, no malaise, no fatigue. HEENT: No recent visual problems or hearing problems. Denied any sore throat. CARDIOVASCULAR: No chest pain, orthopnea, PND, no palpitations, no syncope. PULMONARY: No shortness of breath, no cough, no hemoptysis. GASTROINTESTINAL: No diarrhea, no nausea, no vomiting, no abdominal pain. NEUROLOGICAL: No headaches, no weakness, no numbness. HEMATOLOGICAL: Denies any bleeding or petechiae. GENITOURINARY: Denies any burning micturition, frequency, or urgency. MUSCULOSKELETAL/RHEUMATOLOGICAL: Left hip pain ENDOCRINE: Denies any polyuria or polydipsia. The rest of the 14-point review of systems is negative. PHYSICAL EXAMINATION: GENERAL: The patient is alert and oriented x3, not in any acute distress. Well developed, well nourished. HEENT: Pupils are round and equally reacting to light. EOMI. No scleral icterus. No conjunctival pallor. Normocephalic, atraumatic. No pharyngeal erythema. No thyromegaly. CARDIOVASCULAR: S1 and S2 present. No murmurs, rubs, or gallops. PULMONARY: Chest is clear to auscultation, no wheezing or crackles. ABDOMEN: Soft, nontender, nondistended, normoactive bowel sounds. No palpable organomegaly. MUSCULOSKELETAL: Left hip surgical incision seen EXTREMITIES: No cyanosis, clubbing, or pedal edema. NEUROLOGICAL: Gross neurological examination did not reveal any focal deficits. SKIN: No rashes. Assessment and plan Left hip osteoarthritis status post left hip arthroplasty Hypothyroidism History of COPD History of colon cancer Monitor vital signs Monitor CBC Monitor CMP Continue pain management per orthopedics Continue DVT prophylaxis per orthopedics Resume home meds PT and OT consulted Labs and medication were reviewed.. Continue same treatment. Continue with symptomatic treatment. Resume home medication. Monitor labs and vitals. DVT and GI prophylaxis. Further recommendations as per clinical course of the patient Dictation was produced using i'mma dictation software. please excuse any grammatical, word or spelling errors. Past Medical History Past Medical History: Blood Disorder, Cancer, Sleep Apnea/CPAP/BIPAP, Thyroid Disorder Additional Past Medical History / Comment(s): STAGE 2 BOWEL CANCER DX 07/12/18, HAD CHEMO, last TREATMENT Nov 2018. Non-Hodgkins Lymphoma. Hx Anemia, currently resolved. "Hx Sleep Apnea, not currently." History of Any Multi-Drug Resistant Organisms: None Reported Past Surgical History: Appendectomy, Bariatric Surgery, Breast Surgery Additional Past Surgical History / Comment(s): SCALP CYST REMOVED. INSERTION OF AND LATER REMOVAL OF PORT A CATHETER. 06/20/18, EXPLORATORY LAP WITH PARTIAL RIGHT COLECTOMY AFTER RUPTURED APPENDIX AND OMENTECTOMY TO REMOVE STAGE 2 CANCER. Gastric bypass 2004. Green field filter. Bilateral breast biopsies. Past Anesthesia/Blood Transfusion Reactions: No Reported Reaction Additional Past Anesthesia/Blood Transfusion Reaction / Comm: Brother becomes violent. Past Psychological History: No Psychological Hx Reported Smoking Status: Current every day smoker Past Alcohol Use History: None Reported Additional Past Alcohol Use History / Comment(s): Smokes 5-10 cigarettes daily, X10 yrs. Past Drug Use History: None Reported - Past Family History Sister(s) Family Medical History: Cancer Additional Family Medical History / Comment(s): NON HODGKINS LYMPHOMA. Father Family Medical History: Cancer Additional Family Medical History / Comment(s): LUNG CANCER. Brother(s) Family Medical History: Cancer Additional Family Medical History / Comment(s): COLON CANCER. Medications and Allergies Home Medications Medication Instructions Recorded Confirmed Type Levothyroxine Sodium [Synthroid] 175 mcg PO QAM 06/19/18 03/08/24 History Bifidobacterium Infantis [Align] 4 mg PO QAM 01/07/22 03/08/24 History Acetaminophen Tab [Tylenol] 650 mg PO Q6H #30 tab 01/10/22 03/08/24 Rx Acyclovir 800 mg PO DIRECTED PRN 01/18/24 03/08/24 History Alendronate Sodium [Fosamax] 70 mg PO SA 03/05/24 03/08/24 History Aspirin 81 mg PO BID #60 tab 03/08/24 Rx Diclofenac Sodium [Voltaren] 75 mg PO BID #60 tab 03/08/24 Rx Omeprazole 20 mg PO DAILY #30 tab 03/08/24 Rx Ondansetron [Zofran] 4 mg PO Q6HR PRN #30 tab 03/08/24 Rx Sennosides-Docusate Sodium 1 tab PO BID PRN #60 tablet 03/08/24 Rx [Senokot-S] HYDROcodone/APAP 10-325MG [Swoope 1 tab PO Q6HR PRN #24 tab 03/09/24 Rx 10-325] Allergies Allergy/AdvReac Type Severity Reaction Status Date / Time No Known Allergies Allergy Verified 03/08/24 14:02 Physical Exam Vitals: Vital Signs Temp Pulse Pulse Resp BP Pulse Ox 03/09/24 07:30 98.5 F 65 16 104/65 96 03/09/24 00:21 97.7 F 50 L 16 103/63 96 03/08/24 19:17 97.7 F 69 18 121/69 98 03/08/24 19:04 60 126/74 96 03/08/24 18:50 62 112/62 99 03/08/24 18:35 67 113/61 96 03/08/24 18:20 78 107/66 03/08/24 18:04 65 122/74 97 03/08/24 17:37 51 L 16 116/58 100 03/08/24 17:22 70 16 121/58 100 03/08/24 17:07 97 F L 83 16 129/58 98 03/08/24 14:35 60 17 106/56 96 03/08/24 13:35 97.4 F L 51 L 16 105/54 98 Intake and Output 03/08/24 03/09/24 03/09/24 22:59 06:59 14:59 Intake Total 100 240 Output Total 300 Balance -200 240 Intake: IV 100 Oral 240 Output: Estimated Blood Loss 300 Other: # Voids 3 Weight 80 kg Results CBC & Chem 7: 03/09/24 02:51 Labs: Abnormal Lab Results - Last 24 Hours (Table) 03/09/24 Range/Units 02:51 WBC 12.79 H (4.50-10.00) X 10*3/uL RBC 3.64 L (4.10-5.20) X 10*6/uL Hgb 9.8 L (12.0-15.0) g/dL Hct 30.8 L (37.2-46.3) % MCH 26.9 L (27.0-32.0) pg MCHC 31.8 L (32.0-37.0) g/dL RDW 15.0 H (11.5-14.5) % Immature Gran # 0.06 H (0.00-0.04) X 10*3/uL Neutrophils # 11.09 H (1.80-7.70) X 10*3/uL Lymphocytes # 0.78 L (0.90-5.00) X 10*3/uL Eosinophils # 0 L (0.04-0.35) X 10*3/uL
[2024-03-10] MEDS ORDERED: LEVOTHYROXINE 88 MCG TAB PO SCH (06:30)
--- NOTE | 2024-03-10 16:20 | P.ANPRN ---
Procedure Note - Anesthesia - Nerve Block Performed Left Joel Single Time Out Performed: Yes Date of Procedure: 03/08/24 Procedure Start Time: 14: Procedure Stop Time: 14:30 Indication: Acute Post-Operative Pain (.), Requested by Surgeon Sedation Type: Sedate with meaningful contact maintained Preparation: Sterile Prep Position: Supine Needle Types: Pajunk Ultrasound used to visualize needle placement: Yes Ultrasound used to observe medication spread: Yes Blood Aspirated: No Pain Paresthesia on Injection Noted: No Resistance on Injection: Normal Image Stored and Saved: Yes Events: Uneventful and Well Tolerated (Ropivacaine 0.5% 20 cc plus dexamethasone 4 mg)
== END 2024-03-09 13:17 | disposition home health service (06) ==
LOC: OR 13:16 → 4SSUR 17:45 → OR 03-09 13:17
PROVIDERS: ATTEND Orthopaedic Surgery
DX: M16.12 Unilateral primary osteoarthritis, left hip (principal); J44.9 Chronic obstructive pulmonary disease, unspecified; G89.18 Other acute postprocedural pain; G47.30 Sleep apnea, unspecified; E03.9 Hypothyroidism, unspecified; F17.210 Nicotine dependence, cigarettes, uncomplicated; Z79.82 Long term (current) use of aspirin; Z79.890 Hormone replacement therapy; Z79.899 Other long term (current) drug therapy; Z80.0 Family history of malignant neoplasm of digestive organs; Z85.038 Personal history of other malignant neoplasm of large intestine; Z90.49 Acquired absence of other specified parts of digestive tract; Z98.84 Bariatric surgery status
CPT/HCPCS: 97162; 85025; 73501; 27130; 64447; J2250; J1100; J0690 ×2; J2405; J3490; J1885; J1171; 64999